=== PATIENT | male | born 1965 | race Caucasian/White ===

== ENCOUNTER 2018-05-14 07:07 | Day surgery (SDC) | payer OTHER ==
[2018-05-13 11:04] VITALS: BMI 35.7
[2018-05-14] MEDS ORDERED: Ketorolac Tromethamine 30 MG/ML VIAL ONE (08:43)
[2018-05-14] MEDS ORDERED: CEFAZOLIN/Water 2 GM/20 ML SYRINGE ONE (08:43)
[2018-05-14 09:01] LABS: #Basophils 0.1 thou/uL (0.0-0.2); #Eosinphils 0.5 thou/uL (0.0-0.7); #Lymphocytes 1.4 thou/uL (1.20-3.40); #Monocytes 0.4 thou/uL (0.11-0.59); #Neutrophils 5.7 thou/uL (1.40-6.50); %Eosinophils 6.7 % (0.0-10.0); %Lymphocytes 17.3 % (21.0-51.0); %Monocytes 5.4 % (0.0-10.0); %Neutrophils 69.6 % (42.0-75.0); Hemoglobin 15.3 g/dL (14.0-18.0); Mean Corpuscular HGB CONC 33.1 g/dL (32.0-36.0); Mean Corpuscular Hemoglobin 28.3 pg (27.0-31.0); Mean Corpuscular Volume 85.3 fL (78.0-98.0); Mean Platelet Volume 7.4 fL (7.4-10.4); Platelet Count 225 thou/uL (130-400); RBC Distribution Width 11.9 % (11.5-14.5); Red Blood Cell (RBC) Count 5.42 mill/uL (4.70-6.10); White Blood Cell (WBC) Count 8.2 thou/uL (4.8-10.8)
[2018-05-14 09:30] LABS: Anion Gap 11 mmol/L (10-20); BUN (Urea Nitrogen) 22 mg/dL (8.4-25.7); Calc. Creatinine Clearance 113 mL/min (70-130); Calcium 9.4 mg/dL (7.8-10.44); Carbon Dioxide 26 mmol/L (22-29); Chloride 108 mmol/L (98-107); Estimated GFR-MDRD 75; Glucose 121 mg/dL (70-105); Potassium 4.5 mmol/L (3.5-5.1); Sodium 140 mmol/L (136-145)
--- NOTE | 2018-05-14 09:56 | RAD ---
FRONTAL RADIOGRAPH CHEST: DATE: 05/14/18. COMPARISON: 01/08/17. HISTORY: Preoperative patient. FINDINGS: Mild diffuse increased linear interstitial densities noted, stable. There is an old clavicle fractur e on the left. There is no pneumothorax, pleural fluid, focal consolidation, or alveolar edema. IMPRESSION: No acute findings. POS: [facility]
[2018-05-14] MEDS ORDERED: Fentanyl 100 MCG/2 ML VIAL ONE ×2 (10:44→12:49)
[2018-05-14] MEDS ORDERED: Bupivacaine/Epinephrine 0.25% 30 ML VIAL ONE (10:50)
[2018-05-14] MEDS ORDERED: Midazolam HCl 2 mg/2 ml Vial ONE (10:56)
[2018-05-14] MEDS ORDERED: Bacitracin Zinc Ointment 30 gm TUBE ONE (11:51)
[2018-05-14] MEDS ORDERED: Promethazine HCl 25 MG/ML VIAL ONE (13:12)
[2018-05-14] MEDS ORDERED: ePHEDrine/0.9% NaCl/PF SYRINGE 50 mg/10 ml ONE (14:25)
[2018-05-14] MEDS ORDERED: Glycopyrrolate 0.2 MG/ML 5 ML SYRINGE ONE (14:25)
[2018-05-14] MEDS ORDERED: PROPOFOL 200 MG/20 ML VIAL ONE (14:25)
[2018-05-14] MEDS ORDERED: Lidocaine 1% PF 5 ML VIAL ONE (14:25)
[2018-05-14] MEDS ORDERED: Ondansetron HCl/PF 4 MG/2 ML Vial ONE (14:25)
--- NOTE | 2018-05-15 08:09 | OP ---
DATE OF OPERATION: 05/14/2018 PREOPERATIVE DIAGNOSIS: A 13 cm protruding soft tissue mass of lateral right chest wall. POSTOPERATIVE DIAGNOSIS: A 13 cm protruding soft tissue mass of lateral right chest wall. OPERATION PERFORMED: Excision of 13 cm right lateral chest wall soft tissue tumor with complex-layer ed closure. SURGEON: Salvatore Mitchell M.D. ANESTHESIA: General endotracheal. INDICATIONS: The patient is a 52-year-old white male. He presented with a large protruding mass fro m his right lateral chest wall. He was taken to the operating room at this time for excision. DESCRIPTION OF OPERATION: Informed consent was obtained, and the patient was taken to the operating room where general endotracheal anesthesia obtained with the patient in supine position. He was then rolled over into a left lateral decubitus position with his right arm flexed forward out of the way. Right lateral chest was prepped with ChloraPrep and draped in sterile fashion. Local anesthetic wa s infiltrated using 0.25% Marcaine with epinephrine. An elliptical incision was created overlying th e mass. Dissection was carried through skin and subcutaneous tissue down to the mass. It was carefu lly dissected free from surrounding tissue in his chest wall. This extended down to the muscular fas tino, but not below it. It was removed intact. Hemostasis was maintained with electrocautery. Speci men was passed off the field intact. The wound was irrigated. All irrigant was aspirated. Meticulous hemostasis was ensured. The wound was closed in multiple layers using running sutures of 3-0 Vicryl to approximate the deep layers and a running suture of 3-0 Prolene to approximate the skin edge. Antibiotic ointment and dry gauze dres sing were placed externally. There were no complications. The patient tolerated the procedure well and was taken to recovery room in stable condition.
--- NOTE | 2018-05-17 20:45 | EKG ---
Test Reason : PREOP Blood Pressure : / mmHG Vent. Rate : 063 BPM Atrial Rate : 063 BPM P-R Int : 136 ms QRS Dur : 086 ms QT Int : 420 ms P-R-T Axes : 015 038 018 degrees QTc Int : 429 ms Normal sinus rhythm Normal ECG When compared with ECG of 08-JAN-2017 14:18, No significant change was found Confirmed by Shawna MCCOY ([id number]) on 05/17/2018 8:45:25 PM Referred By: SUNI Confirmed By:Shawna MCCOY
== END 2018-05-14 13:47 | disposition home or self-care (01) ==
LOC: SDC 07:07
PROVIDERS: ATTEND Specialist
PROC: 0JB60ZZ Excision of Chest Subcutaneous Tissue and Fascia, Open Approach (ICD-10-PCS; principal; 2018-05-14)
DX: D17.1 Benign lipomatous neoplasm of skin and subcutaneous tissue of trunk (principal); I10 Essential (primary) hypertension; M10.9 Gout, unspecified; N40.0 Benign prostatic hyperplasia without lower urinary tract symptoms; F17.290 Nicotine dependence, other tobacco product, uncomplicated; N52.9 Male erectile dysfunction, unspecified; E66.9 Obesity, unspecified; Z68.35 Body mass index [BMI] 35.0-35.9, adult; Z79.899 Other long term (current) drug therapy
CPT/HCPCS: 36416; 71045; 80048; 85025; 88304; 93005; 93010; 96374; J0131; J1885; J2001; J2250; J2405; J2550; J2704; J3010

== ENCOUNTER 2018-12-01 18:08 | Inpatient (IN) | payer OTHER ==
[2018-12-01] MEDS ORDERED: Magnesium 2 GM/50 ML BAG (IN WATER) ONE ×2 (19:11→21:08)
[2018-12-01] MEDS ORDERED: Aspirin Chewable 81 MG TAB ONE (19:11)
[2018-12-01 19:22] LABS: INR-International Normal Ratio 1.1; Prothrombin Time 14.4 SEC (12.0-14.7)
[2018-12-01 19:23] LABS: D-Dimer Test 1.16 *mcg/mL (0.27-0.43)
[2018-12-01] MEDS ORDERED: Acetaminophen 325 MG TAB PO PRN (20:54)
[2018-12-01] MEDS ORDERED: Ondansetron PF 4 MG/2 ML Vial IVP PRN (20:54)
[2018-12-01] MEDS ORDERED: Ondansetron ODT 4 MG TAB PO PRN (20:54)
[2018-12-01] MEDS ORDERED: Sodium Chloride 0.9% 1,000 ML IV SCH (21:00)
[2018-12-01] MEDS ORDERED: Diltiazem 125 MG in Sodium Chloride 0.9% 100 ML IVPB SCH (21:15)
--- NOTE | 2018-12-01 21:33 | CT ---
CT angiogram chest: 12/01/2018 COMPARISON: None HISTORY: Abnormal EKG, chest pain, assess for pulmonary embolism TECHNIQUE: Axial CT imaging obtained at 2.5 mm intervals from the lung apices through the upper abdom en with IV contrast using a CT angiogram protocol. Coronal and oblique sagittal 3-D reformatted imaging obtained. FINDINGS: No lymphadenopathy is noted within the chest. Imaged upper abdomen is unremarkable. Moderate sized bilateral pleural effusions are present. Coronary arterial calcification is noted. No discrete pulmonary arterial filling defect is seen to suggest the presence of acute pulmonary arterial embolism. There is partial consolidation/collapse of bilateral lower lobes abutting the above-described bilater al pleural effusions. There is a pulmonary nodule measuring approximately 8 mm abutting the undersurface of the minor fissu re. There is mild linear increased interstitial density seen peripherally within bilateral upper lobes with associated subpleural cystic change. There is also subtle subpleural cystic change and per ipheral interstitial thickening in the region of the lingula, right middle lobe, and bilateral lower lobes. There is a right upper lobe nodule posteriorly on image 53 measuring 7 mm. No endobronchial lesion is evident. IMPRESSION: No evidence for pulmonary arterial embolism. Bilateral pleural effusions. Interstitial prominence noted. Findings suggest pulmonary edema. Infecti ous pneumonitis in the lung bases cannot be fully excluded. Peripheral interstitial thickening with subpleural emphysematous change. Pulmonary nodules, for which follow-up imaging in [address] advised.
[2018-12-02 05:00] LABS: #Basophils 0.1 thou/uL (0.0-0.2); #Eosinphils 0.5 thou/uL (0.0-0.7); #Lymphocytes 1.4 thou/uL (1.20-3.40); #Monocytes 0.6 thou/uL (0.11-0.59); #Neutrophils 5.9 thou/uL (1.40-6.50); %Basophils 0.8 % (0.0-1.0); %Eosinophils 6.1 % (0.0-10.0); %Lymphocytes 16.7 % (21.0-51.0); %Monocytes 7.3 % (0.0-10.0); %Neutrophils 69.2 % (42.0-75.0); Hemoglobin 13.7 g/dL (14.0-18.0); Mean Corpuscular HGB CONC 32.7 g/dL (32.0-36.0); Mean Corpuscular Hemoglobin 28.2 pg (27.0-31.0); Mean Corpuscular Volume 86.3 fL (78.0-98.0); Mean Platelet Volume 8.2 fL (7.4-10.4); Platelet Count 226 thou/uL (130-400); RBC Distribution Width 12.8 % (11.5-14.5); Red Blood Cell (RBC) Count 4.86 mill/uL (4.70-6.10); White Blood Cell (WBC) Count 8.5 thou/uL (4.8-10.8)
[2018-12-02 05:20] LABS: Anion Gap 11 mmol/L (10-20); BUN (Urea Nitrogen) 22 mg/dL (8.4-25.7); Calc. Creatinine Clearance 0 mL/min (70-130); Calcium 9.2 mg/dL (7.8-10.44); Carbon Dioxide 22 mmol/L (22-29); Chloride 111 mmol/L (98-107); Estimated GFR-MDRD 68; Glucose 103 mg/dL (70-105); Potassium 4.2 mmol/L (3.5-5.1); Sodium 140 mmol/L (136-145)
--- NOTE | 2018-12-02 08:03 | HP ---
PRIMARY CARE DOCTOR: Sheryl Mike DO CODE STATUS: Full code. TIME OF EVALUATION: 7:35 p.m. CHIEF COMPLAINT: Shortness of breath on exertion and cough in the past month. HISTORY OF PRESENT ILLNESS: This is a 53-year-old male patient with past medical history of hypertension, gout, hyperlipidemia, came to the hospital after having shortness of breath on exertion. For the past month, the symptoms have been on and off, with no clear triggers, no alleviating factors. Symptoms have been mild to moderate, limiting his activities of daily living. Due to the symptoms, the patient went to see Dr. Mike for a routine evaluation. He was found to have atrial fibrillation with RVR, sent to the ER, and is being admitted, has been placed on Cardizem drip. Rate is controlled right now, still needing Cardizem 10 mg. REVIEW OF SYSTEMS: CONSTITUTIONAL: No fever, chills, or generalized weakness. RESPIRATORY: No cough, sputum production, shortness of breath. CARDIOVASCULAR: No chest pain or palpitation. GASTROINTESTINAL: No nausea. No vomiting, diarrhea, or abdominal pain. PADDER: No dizziness, headache, or feeling lightheaded. GENITOURINARY: No burning on urination. EXTREMITIES: No leg swelling. All other systems were reviewed and negative except for the findings mentioned above. PAST MEDICAL HISTORY: As mentioned in HPI. SURGICAL HISTORY: Inguinal hernia repair, testicle removal. FAMILY HISTORY:Reviewed and non contributory to current presentation. PSYCH HISTORY: No previous psych history. SOCIAL HISTORY: on Friday, 6 to 12 beers daily. No drugs. No tobacco except for 2 cans of dip per day. KNOWN ALLERGIES: No known drug allergies reported. MEDICATIONS: Allopurinol. PHYSICAL EXAMINATION: VITAL SIGNS: On presentation, blood pressure 147/102 with heart rate 115, respiratory rate was 20, temperature 98.5, pain 0/10, oxygen saturation was 94% on room air. GENERAL APPEARANCE: The patient is alert, oriented, not in acute distress. HEENT: Eyes, normal conjunctivae. Moist oral mucosa. Anicteric. No JVD. RESPIRATORY: Bilateral air entry. No rales. No wheezes. Symmetric expansion. CARDIOVASCULAR: The patient has irregular heartbeat. Mildly tachycardic. No murmurs. No gallop. No edema. ABDOMEN: Soft. Normal bowel sounds. MUSCULOSKELETAL: Baseline range of motion and strength. No tenderness. SKIN: Warm, intact. No pallor. No rash. No redness. Peripheral pulses are present. Capillary refill seems to be intact. NEUROLOGIC: No evidence of any new focal weakness. Baseline speech. Cranial nerves seems to be intact. PSYCH: The patient is in good mood. No anxiety. Optimal judgment. DIAGNOSTIC DATA: EKG showed atrial fibrillation with RVR, ventricular rate 108 , QRS 86, QT corrected 503. CT angio was reviewed. The patient has no evidence of pulmonary arterial embolism, bilateral pleural effusions, interstitial prominence, findings suggest pulmonary edema. Infectious pneumonitis of the lung bases cannot be excluded. Peripheral interstitial thickening of subpleural emphysematous change, pulmonary nodules, for which followup evaluation in [address] is advised. LABORATORY DATA: Labs were reviewed. The patient has white count 11.1, hemoglobin 15.2, MCV 86.9, platelet count 256. Coagulation was normal except for D-dimer was 1.16. Chemistry; sodium 143, potassium 4.0, chloride 109, carbon dioxide 23, anion gap 15, BUN 23, creatinine 1.16, glucose 99. Hemoglobin A1c 5.5 done recently on the . Calcium 9.8, total bilirubin 0.7, AST 26, ALT 46, alkaline phosphatase 87, lactate dehydrogenase 232, CK 190, troponin 0.014. Beta-natriuretic peptide was 474. Serum total protein 7.2. TSH 2.3. ASSESSMENT AND PLAN: The patient will be placed in the hospital with following medical problems: 1. Atrial fibrillation with rapid ventricular response. The patient has been started on Cardizem drip. Cardiology is being consulted, for further recommendations. 2. The patient has probable underlying congestive heart failure seen on the chest x-ray, also elevated beta natriuretic peptide. Place the patient on diuresis. We will adjust as per the patient's clinical response. 3. Uncontrolled hypertension. The patient presented with systolic blood pressure 150 and diastolic 111. The patient reconcile home medications. Also no BP medications reported. He cannot recall the name. We will adjust treatment accordingly. 4. Deep venous thrombosis prophylaxis. 5. The patient has some nodularity reported from the CT angio and may need to follow up as outpatient. Job ID: [id number] [facility]
[2018-12-02] MEDS ORDERED: Enoxaparin Sodium 40 MG/0.4 ML SYRINGE SC SCH (09:00)
[2018-12-02] MEDS ORDERED: Enoxaparin Sodium 40 MG/0.4 ML SYRINGE ONE (09:09)
[2018-12-02] MEDS ORDERED: Furosemide 40 MG/4 ML VIAL ONE (09:09)
[2018-12-02] MEDS ORDERED: cloNIDine 0.1 MG TAB PO PRN (09:47)
[2018-12-02] MEDS ORDERED: hydrALAZINE 20 MG/ML VIAL SLOW IVP PRN (09:47)
[2018-12-02] MEDS: Furosemide 40 MG/4 ML VIAL SLOW IVP SCH (10:28)
[2018-12-02] MEDS ORDERED: Metoprolol Tartrate 50 MG TAB ONE (10:34)
[2018-12-02] MEDS ORDERED: Diltiazem 125 MG/25 ML ONE (11:56)
[2018-12-02] MEDS ORDERED: Enoxaparin Sodium 100 MG/ML SYRINGE SC SCH (12:00)
--- NOTE | 2018-12-02 15:43 | PDOC.PN ---
- Subjective Encounter Start Date: 12/02/18 Encounter Start Time: 15:41 Subjective: feels better. no palpitations or chest pain or SOB - Objective Resuscitation Status - Order Detail: 12/01/18 20:54 Resuscitation Status Routine Resuscitation Status: FULL: Full Resuscitation MAR Reviewed: Yes Result Diagrams: 12/02/18 04:46 12/02/18 04:46 Additional Labs: Laboratory Tests 12/01/18 18:59 B-Natriuretic Peptide 474.5 H Phys Exam - Physical Examination uncomfortable HEENT: PERRLA, moist MMs, sclera anicteric, oral pharynx no lesions Neck: no nodes, no JVD, supple, full ROM Respiratory: no wheezing, no rales, no rhonchi Cardiovascular: RRR, no significant murmur Gastrointestinal: soft, non-tender, no distention, positive bowel sounds Musculoskeletal: no edema, pulses present Neurological: non-focal, normal sensation, moves all 4 limbs Psychiatric: normal affect, A&O x 3 Skin: no rash Dx/Plan (1) Atrial fibrillation with RVR Code(s): I48.91 - UNSPECIFIED ATRIAL FIBRILLATION Status: Acute Comment: rate controlled on CCB drip.Continue. add PO Toprol at home doses.Add BID Lovenox for full anticoagulation.Pt educated in detail ECHO pending.May need cath given significant FH of CAD (2) Pulmonary edema Code(s): J81.1 - CHRONIC PULMONARY EDEMA Status: Acute Qualifiers: Qualified Code(s): J81.0 - Acute pulmonary edema Comment: D/T #1.lasix given.better. monitor.ECHO (3) HTN (hypertension) Code(s): I10 - ESSENTIAL (PRIMARY) HYPERTENSION Status: Chronic Qualifiers: Hypertension type: essential hypertension Qualified Code(s): I10 - Essential (primary) hypertension Comment: stable (4) Gout Code(s): M10.9 - GOUT, UNSPECIFIED Status: Chronic Comment: stable. (5) Tobacco abuse Code(s): Z72.0 - TOBACCO USE Status: Chronic Comment: Dips for almost 35 yrs (6) Tobacco abuse counseling Code(s): Z71.6 - TOBACCO ABUSE COUNSELING Status: Acute - Plan plan discussed w/ family, DVT proph w/SCDs cardiology recs requested.cont as above otherwise. Hd stable -: am labs -: reconcile home meds * . Review of Systems - Review of Systems Constitutional: weakness. negative: fever, chills, sweats, malaise, other ENT: negative: Ear Pain, Ear Discharge, Nose Pain, Nose Discharge, Nose Congestion, Mouth Pain, Mouth Swelling, Throat Pain, Throat Swelling, Other Respiratory: SOB with Excertion. negative: Cough, Dry, Shortness of Breath, Hemoptysis, Pleuritic Pain, Sputum, Wheezing Cardiovascular: negative: chest pain, palpitations, orthopnea, paroxysmal nocturnal dyspnea, edema, light headedness, other Gastrointestinal: negative: Nausea, Vomiting, Abdominal Pain, Diarrhea, Constipation, Melena, Hematochezia, Other Genitourinary: negative: Dysuria, Frequency, Incontinence, Hematuria, Retention , Other Musculoskeletal: negative: Neck Pain, Shoulder Pain, Arm Pain, Back Pain, Hand Pain, Leg Pain, Foot Pain, Other Neurological: negative: Weakness, Numbness, Incoordination, Change in Speech, Confusion, Seizures, Other - Medications/Allergies Allergies/Adverse Reactions: Allergies Allergy/AdvReac Type Severity Reaction Status Date / Time No Known Allergies Allergy Verified 05/13/18 11:04 Medications: Current Medications Acetaminophen (Tylenol) 650 mg PO Q4H PRN PRN Reason: Headache/Fever/Mild Pain (1-3) Clonidine (Catapres) 0.1 mg PO Q4H PRN PRN Reason: SBP>160 Enoxaparin Sodium (Lovenox) 100 mg SC 0900,2100 [facility] Furosemide (Lasix) 40 mg SLOW IVP DAILY [facility] Last Admin: 12/02/18 10:28 Dose: 40 mg Hydralazine HCl (Apresoline) 10 mg SLOW IVP Q4H PRN PRN Reason: SBP>170 Diltiazem HCl 125 mg/ Sodium (Chloride) 125 mls @ 10 mls/hr IVPB INF [facility]; Protocol Metoprolol Succinate (Toprol Xl) 50 mg PO DAILY [facility] Ondansetron HCl (Zofran Odt) 4 mg PO Q6H PRN PRN Reason: Nausea/Vomiting Ondansetron HCl (Zofran) 4 mg IVP Q6H PRN PRN Reason: Nausea/Vomiting Sodium Chloride (Flush - Normal Saline) 10 ml IVF Q12HR [facility] Last Admin: 12/02/18 10:28 Dose: 10 ml Sodium Chloride (Flush - Normal Saline) 10 ml IVF PRN PRN PRN Reason: Saline Flush
--- NOTE | 2018-12-02 16:33 | CON ---
DATE OF CONSULTATION: 12/02/2018 REASON FOR CONSULTATION: New onset atrial fibrillation. HISTORY OF PRESENT ILLNESS: Mr. Sweeney is a very pleasant 53-year-old gentleman, who recently presented to Dr. Sheryl Mike's office with shortness of breath and wheezing. He states he has also had lower extremity edema over the last month. He was found to have an irregular heart rhythm. EKG performed and suggested atrial fibrillation. He has been diuresed and feels much better. PAST MEDICAL HISTORY: Hypertension and gout. ALLERGIES: NONE. MEDICATIONS: Toprol. REVIEW OF SYSTEMS: A 10-point review of systems is reviewed and otherwise negative. PHYSICAL EXAMINATION: GENERAL: Patient is a pleasant male who is in no acute distress. The patient appears their stated age. VITAL SIGNS: Blood pressure 120/70, pulse 80, and respirations 20. NEUROLOGIC: The patient is alert and oriented x3 with no focal neurologic deficits. HEENT: Sclerae without icterus. Mouth has moist mucous membranes with normal pallor. NECK: No JVD. Carotid upstroke brisk. No bruits bilaterally. LUNGS: Clear to auscultation with unlabored respirations. BACK: No scoliosis or kyphosis. CARDIAC: Irregularly irregular. ABDOMEN: Soft, nontender, nondistended. No peritoneal signs present. No hepatosplenomegaly. No abnormal striae. EXTREMITIES: 2+ femoral and 2+ dorsalis pedis pulses. No cyanosis, clubbing, or edema. SKIN: No gross abnormalities. PERTINENT LABORATORY DATA: Hemoglobin 13.7. Creatinine 1.12. BNP of 474. IMPRESSION: New onset atrial fibrillation. RECOMMENDATIONS: Mr. Sweeney does have a history of hypertension. His CHADS score is felt to be 1. His echo was pending and may change his CHADS score. At this point, I would recommend covering with Lovenox. Continue IV Cardizem. We will supplement with p.o. Cardizem at 60 mg q.6 hours. We will then switch to long-acting. Plan is rate control and further outpatient workup if his overall LVEF is normal. If his LVEF is compromised, his CHADS score would be 2 and we would change the direction of his anticoagulation treatment. He also gives a history of snoring and likely has sleep apnea. He will need an outpatient sleep study. Job ID: [id number]
[2018-12-02] MEDS: Enoxaparin Sodium 100 MG/ML SYRINGE SC SCH (20:03)
[2018-12-02 22:49] LABS: Troponin I 0.021 ng/mL (< 0.028)
[2018-12-03 01:28] LABS: Troponin I 0.019 ng/mL (< 0.028)
[2018-12-03] MEDS: Diltiazem 125 MG in Sodium Chloride 0.9% 100 ML IVPB SCH ×2 (01:48→13:13)
--- NOTE | 2018-12-03 07:07 | PDOC.CTH ---
Cardiology Progress Note - Subjective Feels better. He has diuresed. EF on echo difficult to assess. It appearsa mildly depressed vs lower limit of normal - Objective Vital Signs Temp Pulse Resp BP Pulse Ox 12/03/18 03:47 97.6 F 80 18 134/87 92 L 12/03/18 00:06 85 140/87 - Physical Examination General/Neuro: NAD Neck: no JVD present Lungs: CTA, unlabored respirations Heart: PMI normal, other: (irr) Abdomen: NT/ND, soft Extremities: + femoral B - Labs Result Diagrams: 12/02/18 04:46 12/02/18 04:46 Troponin/CKMB Troponin I 0.019 ng/mL (< 0.028) 12/03/18 00:57 - Assessment/Plan New onset afib Change po BB to PO CCB Recommend adding ACT Once rate controlled off IV CCB, recommend outpatient [facility]ON with CV
[2018-12-03] MEDS: Furosemide 40 MG/4 ML VIAL SLOW IVP SCH (09:22)
[2018-12-03] MEDS: Enoxaparin Sodium 100 MG/ML SYRINGE SC SCH (09:23)
[2018-12-03] MEDS ORDERED: Diltiazem 125 MG in Sodium Chloride 0.9% 100 ML IVPB SCH (13:35)
--- NOTE | 2018-12-03 15:07 | PDOC.PN ---
- Subjective Encounter Start Date: 12/03/18 Encounter Start Time: 15:06 Subjective: feels better. no chest pain or palpitations -: still SOB when walks around - Objective Resuscitation Status - Order Detail: 12/01/18 20:54 Resuscitation Status Routine Resuscitation Status: FULL: Full Resuscitation MAR Reviewed: Yes Vital Signs & Weight: Vital Signs (12 hours) Temp Pulse Resp BP Pulse Ox 12/03/18 12:00 98.3 F 82 18 135/77 92 L 12/03/18 08:45 98.2 F 90 18 160/93 H 92 L 12/03/18 08:00 92 L 12/03/18 03:47 97.6 F 80 18 134/87 92 L I&O: 12/02/18 12/03/18 12/04/18 06:59 06:59 06:59 Intake Total 200 Balance 200 Result Diagrams: 12/02/18 04:46 12/02/18 04:46 Phys Exam - Physical Examination Constitutional: NAD HEENT: PERRLA, moist MMs, sclera anicteric, oral pharynx no lesions Neck: no nodes, no JVD, supple, full ROM Respiratory: no wheezing, no rales, no rhonchi, clear to auscultation bilateral Cardiovascular: no significant murmur, irregular Gastrointestinal: soft, non-tender, no distention, positive bowel sounds Musculoskeletal: no edema, pulses present Neurological: non-focal, normal sensation, moves all 4 limbs Psychiatric: normal affect, A&O x 3 Skin: no rash Dx/Plan (1) Atrial fibrillation with RVR Code(s): I48.91 - UNSPECIFIED ATRIAL FIBRILLATION Status: Acute Comment: rate controlled on CCB .changed from drip to PO cardiazem.moitor BID Lovenox for full anticoagulation.Pt educated in detail ECHO pending.May need cath given significant FH of CAD (2) Pulmonary edema Code(s): J81.1 - CHRONIC PULMONARY EDEMA Status: Acute Qualifiers: Qualified Code(s): J81.0 - Acute pulmonary edema Comment: D/T #1.lasix given.better. monitor.ECHO (3) HTN (hypertension) Code(s): I10 - ESSENTIAL (PRIMARY) HYPERTENSION Status: Chronic Qualifiers: Hypertension type: essential hypertension Qualified Code(s): I10 - Essential (primary) hypertension Comment: stable (4) Gout Code(s): M10.9 - GOUT, UNSPECIFIED Status: Chronic Comment: stable. (5) Tobacco abuse Code(s): Z72.0 - TOBACCO USE Status: Chronic Comment: Dips for almost 35 yrs (6) Tobacco abuse counseling Code(s): Z71.6 - TOBACCO ABUSE COUNSELING Status: Acute - Plan DVT proph w/SCDs rate controlled on Po Cardiazem. -: may need OAC-defer to cardiology. -: HD stable * . Review of Systems - Review of Systems Constitutional: negative: fever, chills, sweats, weakness, malaise, other ENT: negative: Ear Pain, Ear Discharge, Nose Pain, Nose Discharge, Nose Congestion, Mouth Pain, Mouth Swelling, Throat Pain, Throat Swelling, Other Respiratory: SOB with Excertion. negative: Cough, Dry, Shortness of Breath, Hemoptysis, Pleuritic Pain, Sputum, Wheezing Cardiovascular: negative: chest pain, palpitations, orthopnea, paroxysmal nocturnal dyspnea, edema, light headedness, other Gastrointestinal: negative: Nausea, Vomiting, Abdominal Pain, Diarrhea, Constipation, Melena, Hematochezia, Other Genitourinary: negative: Dysuria, Frequency, Incontinence, Hematuria, Retention , Other Musculoskeletal: negative: Neck Pain, Shoulder Pain, Arm Pain, Back Pain, Hand Pain, Leg Pain, Foot Pain, Other Neurological: negative: Weakness, Numbness, Incoordination, Change in Speech, Confusion, Seizures, Other - Medications/Allergies Allergies/Adverse Reactions: Allergies Allergy/AdvReac Type Severity Reaction Status Date / Time No Known Allergies Allergy Verified 05/13/18 11:04 Medications: Current Medications Acetaminophen (Tylenol) 650 mg PO Q4H PRN PRN Reason: Headache/Fever/Mild Pain (1-3) Clonidine (Catapres) 0.1 mg PO Q4H PRN PRN Reason: SBP>160 Diltiazem HCl (Cardizem) 60 mg PO ACHS [facility] Last Admin: 12/03/18 13:16 Dose: 60 mg Enoxaparin Sodium (Lovenox) 100 mg SC 0900,2100 [facility] Last Admin: 12/03/18 09:23 Dose: 100 mg Furosemide (Lasix) 40 mg SLOW IVP DAILY [facility] Last Admin: 12/03/18 09:22 Dose: 40 mg Hydralazine HCl (Apresoline) 10 mg SLOW IVP Q4H PRN PRN Reason: SBP>170 Diltiazem HCl 125 mg/ Sodium (Chloride) 125 mls @ 5 mls/hr IVPB INF [facility]; Protocol Ondansetron HCl (Zofran Odt) 4 mg PO Q6H PRN PRN Reason: Nausea/Vomiting Ondansetron HCl (Zofran) 4 mg IVP Q6H PRN PRN Reason: Nausea/Vomiting Sodium Chloride (Flush - Normal Saline) 10 ml IVF Q12HR [facility] Last Admin: 12/03/18 09:24 Dose: 10 ml Sodium Chloride (Flush - Normal Saline) 10 ml IVF PRN PRN PRN Reason: Saline Flush
[2018-12-03] MEDS: Apixaban 5 MG TAB PO SCH (21:37)
[2018-12-03 23:26] VITALS: BMI 33.3
--- NOTE | 2018-12-04 06:11 | PDOC.CTH ---
Cardiology Progress Note - Subjective feels better after diuresis. Would like to go home. - Objective Vital Signs Temp Pulse Resp BP Pulse Ox 12/04/18 04:00 97.8 F 78 20 140/87 92 L 12/03/18 20:00 98.6 F 76 18 160/92 H 92 L 12/03/18 19:40 92 L Weight 206 lb 14.4 oz 12/02/18 12/03/18 12/04/18 06:59 06:59 06:59 Intake Total 200 1060 Output Total 1400 Balance 200 -340 - Physical Examination General/Neuro: alert & oriented x3, NAD Neck: carotid US brisk, no JVD present Lungs: unlabored respirations Heart: other: (irr) Abdomen: no HSM, NT/ND, soft Extremities: + femoral B - Telemetry Telemetry Rhythm: afib - Labs Result Diagrams: 12/04/18 06:26 12/02/18 04:46 Troponin/CKMB Troponin I 0.019 ng/mL (< 0.028) 12/03/18 00:57 - Assessment/Plan New onset afib HTN ?SHER ETOH abuse REC12/04 Change po BB to PO CCB Recommend adding ACT DC IV CCB and increase PO CCB On eliquis If rate and BP controlled, recommend DC home with close OP fu No ETOH per pt for several weeks since he has been feeling SOB; continue to refrain from ETOH (previous 12pk beer per day)
[2018-12-04 06:58] LABS: Hemoglobin 14.6 g/dL (14.0-18.0)
[2018-12-04] MEDS: Furosemide 40 MG/4 ML VIAL SLOW IVP SCH (09:19)
[2018-12-04] MEDS: Apixaban 5 MG TAB PO SCH ×2 (09:19→20:50)
--- NOTE | 2018-12-04 09:49 | PQF ---
GIBRAN MARIEE MALIK MD [id number] CLINICAL DOCUMENTATION IMPROVEMENT CLARIFICATION FORM: ICD-10 Updated PLEASE DO AN ADDENDUM TO THE PROGRESS NOTE WITH ANY DOCUMENTATION UPDATES OR ADDITIONS AND CARRY THROUGH TO DC SUMMARY. THANK YOU. DATE: 12/04/2018 ATTN:DR. Gilda CAMARENA Please exercise your independent, professional judgment in responding to the clarification form. Clinical indicators are provided on the bottom of this form for your review. Please check appropriate box(s): HEART FAILURE: A. TYPE: [ ] Systolic / HFrEF [ x ] Diastolic / HFpEF [ ] Combined Systolic / Diastolic B. ACUITY [ ] Acute [ x ] Acute on Chronic [ ] Chronic [ ] Other diagnosis [ ] Unable to determine In addition, please specify: Present on Admission (POA): [ x ] Yes [ ] No [ ] Unable to determine For continuity of documentation, please document condition throughout progress notes and discharge summary. Thank You. CLINICAL INDICATORS - SIGNS / SYMPTOMS / LABS 12/[address] : BILATERAL PLEURAL EFFUSIONS. INTERSTITIAL PROMINENCE NOTED. FINDINGS SUGGEST PULMONARY EDEMA. INFECTIOUS PNEUMONITIS IN THE LUNG BASES CANNOT BE FULLY EXCLUDED 12/01 BNP 474.5 12/02 H & P (AVANI) ASSESSMENT AND PLAN 2).THE PATIENT HAS PROBABLE UNDERLYING CHF SEEN ON THE CHEST X-RAY, ALSO ELEVATED BNP. PLACE THE PATIENT ON DIURESIS. 12/03 ECHO: TECHNICALLY DIFFICULT STUDY W POOR ENDOCARDIAL DEFINITION; LIMITED VIEWS. EF APPEARS MILDY DEPRESSED TO LOWER LIMITS OF NORMAL. MILD MITRAL REGURGITATION IS PRESENT, MILD TRICUSPID REGURGITATION RISK: ACUTE PULMONARY EDEMA NEW ONSET A-FIB W RVR ALCOHOL ABUSE TREATMENTS CARDIOLOGY CONSULT LASIX IV (11/12- PRESENT) THANK YOU! JOSE MANUEL (This form is maintained as a part of the permanent medical record) 2014 [employer] All Rights Reserved [email or web address] [phone] DANELLE
[2018-12-04 11:45] LABS: ALT (SGPT) 42 U/L (8-55); AST (SGOT) 23 U/L (5-34); Albumin 3.8 g/dL (3.5-5.0); Alkaline Phosphatase 76 U/L (40-150); Anion Gap 13 mmol/L (10-20); BUN (Urea Nitrogen) 18 mg/dL (8.4-25.7); Calc. Creatinine Clearance 104 mL/min (70-130); Calcium 9.4 mg/dL (7.8-10.44); Carbon Dioxide 24 mmol/L (22-29); Chloride 107 mmol/L (98-107); Estimated GFR-MDRD 71; Globulin 2.8 g/dL (2.4-3.5); Glucose 120 mg/dL (70-105); Magnesium 1.8 mg/dL (1.6-2.6); Potassium 3.8 mmol/L (3.5-5.1); Protein, Total 6.6 g/dL (6.0-8.3); Sodium 140 mmol/L (136-145)
[2018-12-04] MEDS ORDERED: Lorazepam 1 MG TAB PO PRN (17:28)
--- NOTE | 2018-12-04 17:46 | PRG ---
DATE OF SERVICE: 12/04/2018 SUBJECTIVE: The patient denies any new complaints. Remains on remains on Cardizem drip. Denies any chest pain. No fever or chills reported. REVIEW OF SYSTEMS: The patient denies any nausea, vomiting, or diaphoresis. All other review of systems were reviewed and were found negative. CURRENT MEDICATIONS: Reviewed. OBJECTIVE: VITAL SIGNS: Temperature 99.3 with pulse rate of 93, respirations of 18, blood pressure of 146/71 with O2 saturation 93% on room air, weight of 206 pounds. GENERAL: A 53-year-old male in no apparent distress, on Cardizem drip. LUNGS: Clear to auscultation bilaterally. HEART: S1, S2 present. Irregularly irregular. No rubs or gallops. ABDOMEN: Soft, obese. Bowel sounds present. EXTREMITIES: No edema or calf tenderness. NEUROLOGIC: Grossly nonfocal. LABORATORY DATA: Significant labs, sodium 140, potassium 3.8, BUN 18, creatinine 1.08. TSH was normal. Troponins negative. IMPRESSION: 1. New onset atrial fibrillation with rapid ventricular response/Acute diastolic HF - ACC stage C (present on admission) 2. Chronic alcohol abuse. 3. Hypertension. 4. Obesity with a body mass index of 33.4. 5. Benign prostatic hypertrophy. 6. Gout. 7. Suspected obstructive sleep apnea. PLAN: Cardizem drip will be discontinued. We will continue oral Cardizem at 90 mg a.c. at bedtime. Continue Eliquis. He understands the risk associated with Eliquis. We will resume allopurinol and Flomax. We will start him on thiamine, folic acid, multivitamin. We will initiate alcohol withdrawal protocol. Lifestyle modification was emphasized. He was advised to get a sleep study as outpatient. DISPOSITION: Probably in 24 hours, if okay with Cardiology. Job ID: [id number] [facility]
[2018-12-04] MEDS ORDERED: Folic Acid 1 MG TAB PO SCH (18:00)
[2018-12-04] MEDS ORDERED: Lorazepam 0.5 MG TAB PO SCH (18:00)
[2018-12-04] MEDS ORDERED: Thiamine 100 MG TAB PO SCH (18:00)
[2018-12-04] MEDS: Tamsulosin HCl 0.4 MG CAP PO SCH (20:50)
[2018-12-05] MEDS ORDERED: Digoxin 0.5 MG/2 ML AMP SLOW IVP SCH (09:15)
[2018-12-05] MEDS: Apixaban 5 MG TAB PO SCH ×2 (09:35→21:04)
[2018-12-05] MEDS: Furosemide 40 MG/4 ML VIAL SLOW IVP SCH (09:35)
[2018-12-05] MEDS: Folic Acid 1 MG TAB PO SCH (09:35)
[2018-12-05] MEDS: Allopurinol 300 MG TAB PO SCH (09:35)
[2018-12-05] MEDS: Thiamine 100 MG TAB PO SCH (09:35)
[2018-12-05] MEDS: Multivit, Therapeutic 1 TAB PO SCH (09:35)
[2018-12-05] MEDS: Digoxin 0.5 MG/2 ML AMP SLOW IVP SCH ×2 (11:21→13:17)
--- NOTE | 2018-12-05 16:14 | PDOC.PN ---
- Subjective Encounter Start Date: 12/05/18 Encounter Start Time: 10:00 Patient seen and examined for Afib with RVR. No new complaints. No overnight events - Objective Resuscitation Status - Order Detail: 12/01/18 20:54 Resuscitation Status Routine Resuscitation Status: FULL: Full Resuscitation MAR Reviewed: Yes Vital Signs & Weight: Vital Signs (12 hours) Temp Pulse Resp BP Pulse Ox 12/05/18 15:23 98 F 100 16 176/90 H 95 12/05/18 13:17 93 12/05/18 11:23 98.4 F 101 H 16 153/88 H 94 L 12/05/18 11:21 107 H 12/05/18 09:34 119 H 12/05/18 07:49 98.3 F 110 H 16 135/88 94 L Weight Weight 206 lb 14.4 oz I&O: 12/04/18 12/05/18 12/06/18 06:59 06:59 06:59 Intake Total 1320 1845 Output Total 2000 200 Balance -680 1645 Result Diagrams: 12/04/18 06:26 12/04/18 11:03 EKG Reviewed by me: Yes (Tele Afib) Phys Exam - Physical Examination Constitutional: NAD Respiratory: no wheezing, no rhonchi Cardiovascular: no rub, irregular Gastrointestinal: soft, non-tender, positive bowel sounds Musculoskeletal: no edema Neurological: moves all 4 limbs Dx/Plan - Plan DVT proph w/SCDs IMPRESSION: 1. New onset atrial fibrillation with rapid ventricular response/Acute diastolic HF - ACC stage C (present on admission) 2. Chronic alcohol abuse. 3. Hypertension. 4. Obesity with a body mass index of 33.4. 5. Benign prostatic hypertrophy. 6. Gout. 7. Suspected obstructive sleep apnea. PLAN: Cont Digoxin loading Cont Diltiazem 360 mg HS Cont Thiamine/Folic acid Sleep study as outpt DC in 24-48 hr if stable Change Lasix to PO Review of Systems - Review of Systems Respiratory: negative: Cough, Dry, Shortness of Breath, Hemoptysis, SOB with Excertion, Pleuritic Pain, Sputum, Wheezing Cardiovascular: negative: chest pain, palpitations, orthopnea, paroxysmal nocturnal dyspnea, edema, light headedness, other Gastrointestinal: negative: Nausea, Vomiting, Abdominal Pain, Diarrhea, Constipation, Melena, Hematochezia, Other - Medications/Allergies Allergies/Adverse Reactions: Allergies Allergy/AdvReac Type Severity Reaction Status Date / Time No Known Allergies Allergy Verified 05/13/18 11:04 Medications: Current Medications Acetaminophen (Tylenol) 650 mg PO Q4H PRN PRN Reason: Headache/Fever/Mild Pain (1-3) Allopurinol (Zyloprim) 300 mg PO DAILY [facility] Last Admin: 12/05/18 09:35 Dose: 300 mg Apixaban (Eliquis) 5 mg PO BID [facility] Last Admin: 12/05/18 09:35 Dose: 5 mg Clonidine (Catapres) 0.1 mg PO Q4H PRN PRN Reason: SBP>160 Last Admin: 12/05/18 15:31 Dose: 0.1 mg Diltiazem HCl (Cardizem Cd) 360 mg PO HS [facility] Last Admin: 12/04/18 20:50 Dose: 360 mg Folic Acid (Folvite) 1 mg PO DAILY [facility] Last Admin: 12/05/18 09:35 Dose: 1 mg Furosemide (Lasix) 40 mg SLOW IVP DAILY [facility] Last Admin: 12/05/18 09:35 Dose: 40 mg Hydralazine HCl (Apresoline) 10 mg SLOW IVP Q4H PRN PRN Reason: SBP>170 Lorazepam (Ativan) 1 mg PO Q4H PRN PRN Reason: ASE >=9 Multivitamins (Theragran) 1 tab PO DAILY [facility] Last Admin: 12/05/18 09:35 Dose: 1 tab Ondansetron HCl (Zofran Odt) 4 mg PO Q6H PRN PRN Reason: Nausea/Vomiting Ondansetron HCl (Zofran) 4 mg IVP Q6H PRN PRN Reason: Nausea/Vomiting Sodium Chloride (Flush - Normal Saline) 10 ml IVF Q12HR [facility] Last Admin: 12/05/18 09:34 Dose: 10 ml Sodium Chloride (Flush - Normal Saline) 10 ml IVF PRN PRN PRN Reason: Saline Flush Tamsulosin HCl (Flomax) 0.4 mg PO HS [facility] Last Admin: 12/04/18 20:50 Dose: 0.4 mg Thiamine HCl (Thiamine) 100 mg PO DAILY [facility] Last Admin: 12/05/18 09:35 Dose: 100 mg
[2018-12-05] MEDS: Tamsulosin HCl 0.4 MG CAP PO SCH (21:04)
[2018-12-06 07:14] LABS: Anion Gap 14 mmol/L (10-20); BUN (Urea Nitrogen) 17 mg/dL (8.4-25.7); Calc. Creatinine Clearance 101 mL/min (70-130); Calcium 9.7 mg/dL (7.8-10.44); Carbon Dioxide 23 mmol/L (22-29); Chloride 105 mmol/L (98-107); Estimated GFR-MDRD 73; Glucose 108 mg/dL (70-105); Potassium 4.3 mmol/L (3.5-5.1); Sodium 138 mmol/L (136-145)
[2018-12-06] MEDS ORDERED: Furosemide 40 MG TAB PO SCH (07:30)
[2018-12-06] MEDS: Apixaban 5 MG TAB PO SCH (08:52)
[2018-12-06] MEDS: Multivit, Therapeutic 1 TAB PO SCH (08:52)
[2018-12-06] MEDS: Folic Acid 1 MG TAB PO SCH (08:52)
[2018-12-06] MEDS: Thiamine 100 MG TAB PO SCH (08:52)
[2018-12-06] MEDS: Allopurinol 300 MG TAB PO SCH (08:52)
[2018-12-06] MEDS ORDERED: Digoxin 0.25 MG TAB PO SCH (09:00)
[2018-12-06 11:23] VITALS: BP 138/79; TEMP 98.2
--- NOTE | 2018-12-06 14:38 | DIS ---
DATE OF ADMISSION: 12/01/2018 DATE OF DISCHARGE: 12/06/2018 DISCHARGE DISPOSITION: Home. FOLLOWUP: 1. Follow up with primary care physician, Dr. Sheryl Mike, in 1 week. 2. Follow up with Dr. Yang in 2 weeks. ALLERGIES: NO KNOWN DRUG ALLERGIES. THIS NOT LIMITED TO LIFE THREATENING COMPLICATIONS INCLUDING FROM ANTICOAGULATION DISCUSSED WITH THE PATIENT. HE STATED UNDERSTANDING. THE PATIENT WAS SEEN AND EXAMINED ON THE DAY OF DISCHARGE. DENIES ANY NEW COMPLAINTS. DISCHARGE MEDICATIONS: 1. Eliquis 5 mg b.i.d. 2. Digoxin 0.25 mg daily. 3. Cardizem CD 360 mg at bedtime. 4. Lasix 40 mg daily as needed. 5. Potassium 20 mg daily as needed with Lasix. 6. Flomax 0.4 mg daily. BRIEF HOSPITAL COURSE: The patient is a 53-year-old male with hypertension and hyperlipidemia, presented to the hospital with shortness of breath. His workup was consistent with atrial fibrillation with rapid ventricular response along with congestive heart failure exacerbation. He was started on Cardizem drip along with anticoagulation and IV diuresis. His weight on the day of discharge is 197 pounds from 206 pounds. Symptomatically, he feels much better. He has been started on oral Cardizem along with digoxin. He will follow up with Dr. Yang as outpatient for cardioversion probably after 4 weeks. Echocardiogram showed ejection fraction probably in the lower limits of normal. It also showed mild mitral regurgitation and mild tricuspid regurgitation. His CT angiogram of the chest on admission was negative for pulmonary embolism. It showed bilateral pleural effusion and findings suggestive of pulmonary edema. He was extensively counseled on low-potassium diet. His vital signs on the day of discharge are temperature 98.2, pulse rate of 87, respirations 18, and blood pressure of 138/79 with O2 saturation 95% on room air. Plan of care was discussed with the patient in detail, he stated understanding. TIME SPENT: Total time coordinating the discharge of this patient was 35 minutes. Lifestyle modification was emphasized. FINAL DIAGNOSES: 1. New onset atrial fibrillation with rapid ventricular response. 2. Acute diastolic heart failure exacerbation secondary to #1. 3. Chronic alcohol abuse. The patient was encouraged to quit drinking. 4. Hypertension. 5. Obesity with a BMI of 33.4. 6. Benign prostatic hypertrophy. 7. Gastroesophageal reflux disease. 8. Suspected sleep apnea. A sleep study as outpatient is recommended. 9. Chronic kidney disease, stage 2. Plan of care was discussed with the patient in detail, he stated understanding. Job ID: [id number]
== END 2018-12-06 11:35 | disposition home or self-care (01) | DRG 291 ==
LOC: ERS 18:08 → ERHOLD 21:01 → 2NO 12-02 19:05
PROVIDERS: ADMIT Internal Medicine; ATTEND Internal Medicine
DX: I13.0 Hypertensive heart and chronic kidney disease with heart failure and stage 1 through stage 4 chronic kidney disease, or unspecified chronic kidney disease (principal); I50.33 Acute on chronic diastolic (congestive) heart failure; I48.91 Unspecified atrial fibrillation; E78.5 Hyperlipidemia, unspecified; M10.9 Gout, unspecified; N40.0 Benign prostatic hyperplasia without lower urinary tract symptoms; G47.33 Obstructive sleep apnea (adult) (pediatric); I08.1 Rheumatic disorders of both mitral and tricuspid valves; K21.9 Gastro-esophageal reflux disease without esophagitis; N18.2 Chronic kidney disease, stage 2 (mild); F10.10 Alcohol abuse, uncomplicated; E66.9 Obesity, unspecified; F17.220 Nicotine dependence, chewing tobacco, uncomplicated; Z68.33 Body mass index [BMI] 33.0-33.9, adult; Z79.899 Other long term (current) drug therapy; Z90.79 Acquired absence of other genital organ(s)
CPT/HCPCS: 36415; 71275; 80048; 80053; 83735; 83880; 84443; 84484; 85014; 85018; 85025; 85379; 85610; 85730; 93005; 93306; 96365; 96366; J1160; J1650; J1940; J3475; J3490

== ENCOUNTER 2019-02-16 08:57 | Outpatient (CLI) | payer OTHER ==
[2019-02-16 10:25] LABS: Bilirubin Negative (Negative); Blood, Urine Trace (Negative); Glucose, Urine (Dipstick) Negative (Negative); Leukocyte Negative (Negative); Nitrite Negative (Negative); Protein, Urine (Dipstick) 100 mg/dL (Neg-Trace); Urobilinogen 0.2 mg/dL (Less than 2)
[2019-02-16] MEDS ORDERED: Iopamidol 370 76% 100 ML VIAL ONE (10:34)
[2019-02-16 10:39] LABS: Clarity Clear (Clear)
[2019-02-16 10:47] LABS: Anion Gap 15 mmol/L (10-20); BUN (Urea Nitrogen) 32 mg/dL (8.4-25.7); Bacteria/HPF None Seen HPF (None Seen); Calc. Creatinine Clearance 0 mL/min (70-130); Calcium 9.3 mg/dL (7.8-10.44); Carbon Dioxide 26 mmol/L (22-29); Chloride 102 mmol/L (98-107); Estimated GFR-MDRD 38; Glucose 152 mg/dL (70-105); Potassium 4.2 mmol/L (3.5-5.1); RBC/HPF None Seen HPF (0-3); Sodium 139 mmol/L (136-145); Squamous Epithelial None Seen HPF (0-3)
--- NOTE | 2019-02-16 11:00 | CT ---
CT ABDOMEN AND PELVIS WITH AND WITHOUT IV CONTRAST: 02/16/2019 PROVIDED CLINICAL HISTORY: Hematuria and incomplete bladder emptying. COMPARISON: CT examination performed on 12/17/2016. FINDINGS: The visualized lung bases are free of significant opacity. The liver, spleen, pancreas, and adrenal glands appear unremarkable. There is a stable cystic structure with dependent calcium present, involving the right kidney. There is mild bilateral hydronephrosis and bilateral hydroureter. There is marked distention of the urina ry bladder, likely the responsible etiology for the hydronephrosis and hydroureter. There is no evid ence for urinary tract calculi or renal mass. The prostate gland appears mildly prominent and hetero geneous. The delayed images demonstrate only minimal contrast excretion within the renal collecting systems, s uch that evaluation of the ureters and urinary bladder is somewhat limited, though these appear gross ly normal, other than the bladder distention. There is no bowel dilatation, inflammatory fat stranding, free fluid, or lymph node enlargement appar ent. Occasional vascular calcifications are seen. The osseous structures demonstrate no concerning lytic or blastic lesions. Degenerative changes are seen involving the spine. IMPRESSION: Marked distention of the urinary bladder, with presumably attendant mild bilateral hydronephrosis and hydroureter. POS: OFF
== END 2019-02-16 08:58 | disposition home or self-care (01) ==
LOC: CT 08:57
PROVIDERS: ATTEND Urology
DX: R31.0 Gross hematuria (principal); R39.14 Feeling of incomplete bladder emptying; R97.20 Elevated prostate specific antigen [PSA]; N32.89 Other specified disorders of bladder
CPT/HCPCS: 74178; 80048; 81001; 87086; G0103; Q9967

== ENCOUNTER 2019-02-19 09:43 | Inpatient (IN) | payer OTHER ==
[2019-02-19] MEDS ORDERED: Bisacodyl 5 MG TAB PO PRN ×2 (10:33)
[2019-02-19] MEDS ORDERED: Diabetic Tussin 200 MG/10 ML UDCUP PO PRN (10:33)
[2019-02-19] MEDS ORDERED: Senokot S 8.6-50 MG TAB PO PRN ×2 (10:33)
[2019-02-19] MEDS ORDERED: Benzonatate 100 MG CAP PO PRN (10:33)
[2019-02-19] MEDS ORDERED: Acetaminophen 325 MG TAB PO PRN (10:33)
[2019-02-19] MEDS ORDERED: Artificial Tears 18 DROP/0.9 ML EA EYE PRN (10:33)
[2019-02-19] MEDS ORDERED: Ondansetron PF 4 MG/2 ML Vial IVP PRN ×2 (10:33)
[2019-02-19] MEDS ORDERED: Nitroglycerin 0.4 MG TAB (25 Tab Bottle) SL PRN (10:33)
[2019-02-19] MEDS ORDERED: cloNIDine 0.1 MG TAB PO PRN (10:33)
[2019-02-19] MEDS: Sodium Chloride 0.9% 1,000 ML IV SCH (11:52)
[2019-02-19 12:03] LABS: #Basophils 0.1 thou/uL (0.0-0.2); #Eosinphils 0.9 thou/uL (0.0-0.7); #Lymphocytes 1.6 thou/uL (1.20-3.40); #Monocytes 0.9 thou/uL (0.11-0.59); #Neutrophils 13.2 thou/uL (1.40-6.50); %Basophils 0.4 % (0.0-1.0); %Eosinophils 5.3 % (0.0-10.0); %Lymphocytes 9.8 % (21.0-51.0); %Monocytes 5.3 % (0.0-10.0); %Neutrophils 79.2 % (42.0-75.0); Mean Corpuscular Hemoglobin 26.6 pg (27.0-31.0); Mean Platelet Volume 8.8 fL (7.4-10.4); Platelet Count 201 thou/uL (130-400); Red Blood Cell (RBC) Count 5.27 mill/uL (4.70-6.10); White Blood Cell (WBC) Count 16.7 thou/uL (4.8-10.8)
[2019-02-19 12:44] VITALS: BMI 34.0
--- NOTE | 2019-02-19 14:51 | HP ---
PRIMARY CARE PHYSICIAN: Sheryl Mike DO. REQUESTING PHYSICIAN: Caitlyn Patel DO. The patient is being admitted directly from Dr. Patel' office for renal failure. CHIEF COMPLAINT: Abnormal labs. HISTORY OF PRESENT ILLNESS: Mr. Sweeney is a pleasant 53-year-old male with past medical history of atrial fibrillation, on chronic anticoagulation with Eliquis as well as history of chronic diastolic congestive heart failure, diagnosed in November of this year, as well as history of benign prostatic hyperplasia leading to urinary retention, who is under care of Dr. Patel, came in as a direct admit from her office. History is mainly obtained by the patient himself and the case has been discussed with Dr. Patel over the phone. According to Mr. Sweeney, his Eliquis was stopped about 3 or 4 days ago. He was seen in the clinic at urology offices and a Rolle catheter was placed in. It seems like he is to undergo some sort of prostate surgery for BPH, likely TURP. However, today in the office, it was found out that not only he is having hematuria despite being off Eliquis for the last few days, but he also has developed acute renal insufficiency. His creatinine today was found to be 2.09, which was 1.70 two days ago and 1.87 three days ago. Because of this reason, he is now being admitted for further workup. Maybe he will also need cardiology clearance if the surgery is planned inpatient. He also reports having discomfort urination with burning without any abdominal pain. He denies any fever, chills, nausea, or vomiting. He denies any chest pain or shortness of breath. No lightheadedness, orthopnea, PND, or swelling. He is otherwise hemodynamically stable upon presentation with a blood pressure 125/83, heart rate of 80. He is also taking Lasix for his history of heart failure. Denies any loss of appetite or loss of weight. He had a CT scan of his abdomen and pelvis done three days ago in the outpatient setting, which was reviewed by myself. It did show distention of the urinary bladder with mild bilateral hydronephrosis and hydroureter possibly. PAST MEDICAL HISTORY: 1. Atrial fibrillation, on chronic anticoagulation, currently on hold. 2. Chronic diastolic congestive heart failure, diagnosed in November 2018. 3. Urinary retention due to BPH, status post Rolle catheter placement a few days ago. 4. History of chronic alcohol abuse. The patient is abstinent for the last few months. 5. Hypertension. 6. Obesity with a BMI over 30. 7. BPH. 8. GERD. 9. Suspected sleep apnea. PAST SURGICAL HISTORY: 1. Inguinal hernia repair. 2. Testicular removal. FAMILY HISTORY: He denies any family history of any chronic kidney disease, heart disease, or heart failure. SOCIAL HISTORY: He used to drink up to 12 pack of beer daily, but has been abstinent for the last few months. He denies any drug or alcohol abuse. He dips tobacco. ALLERGIES: NO KNOWN MEDICATION ALLERGIES. CURRENT MEDICATIONS: As follows; 1. Tamsulosin 0.4 mg daily. 2. Potassium chloride 20 mEq daily. 3. Multivitamin daily. 4. Lasix 40 mg daily as needed. 5. Diltiazem 360 mg daily. 6. Digoxin 0.25 mg daily. 7. He is also started on ciprofloxacin twice a day only yesterday by Dr. Patel. He does not remember the dose. REVIEW OF SYSTEMS: A 14-point review of system is done. It is negative except for those mentioned in the history and physical. LABORATORY DATA: His CBC was repeated today and shows WBCs of 16.7, it was 12.3 on 12/15/2018. His serum chemistries from today show sodium of 136, potassium 4.2, chloride 100, bicarb 26, BUN 30, creatinine 2.09, blood sugar 200. His last hemoglobin A1c was checked in November 2018 and was 5.5. PHYSICAL EXAMINATION: VITAL SIGNS: Upon presentation to the floor, temperature 98.6, pulse of 80, respirations 14, saturating 98% on room air, and blood pressure 125/83. GENERAL: In no acute distress. He does have some stammer and appear somewhat tremulous. Otherwise awake, alert, and oriented x3. HEENT: Mucous membrane is slightly dry. No oropharyngeal exudate or erythema. Head is normocephalic and atraumatic. Pupils are equal and reactive to light and accommodation. Extraocular movement intact. NECK: Supple without any lymphadenopathy, JVD, or bruit. CHEST: Clear to auscultation without any wheezing, rales, or rhonchi. HEART: Rate and rhythm are regular without any murmurs, rubs, or gallops. ABDOMEN: Obese, soft, nontender, and nondistended. Positive bowel sounds. EXTREMITIES: Trace pitting edema bilaterally. NEUROLOGIC: Nonfocal. SKIN: Free of any rashes or bruises. GENITOURINARY: Reveals presence of a Rolle catheter, which has some brownish dark urine in it, may be tinged with blood. IMPRESSION AND PLAN: 1. Acute renal insufficiency. Most likely multifactorial. The patient has been on diuretics along with presence of a Rolle catheter, possibly urinary tract infection as evidenced by leukocytosis. We will repeat the UA and continue the urine Rolle for now and continue the ciprofloxacin as well. We will gently hydrate him to avoid fluid overload and request consultation with Nephrology as well. We will do serial monitoring of his renal function and hold Lasix for now. His Eliquis has already been on hold. 2. Leukocytosis, suspect reactive, but urinary tract infection cannot be ruled out. Continue ciprofloxacin and recheck urine with culture. 3. Atrial fibrillation. The patient will be continued on his Cardizem. We will check digoxin level in the face of renal failure and if the levels are not in the toxic range, we will restart the digoxin as well. Eliquis has been put on hold for upcoming urological procedure and we will continue to hold it as he exhibits some hematuria. 4. History of chronic diastolic congestive heart failure. The patient currently appears hypovolemic. He will be fluid resuscitated and we will hold the Lasix for now. Monitor closely for the fluid overload symptoms. 5. Benign prostatic hyperplasia. Resume Flomax and request consultation with his urologist, Dr. Patel, while he is in-house. Continue the Rolle catheter for now and check the UA as above. 6. Deep venous thrombosis and gastrointestinal prophylaxis in the form of SCDs and avoid any pharmacological DVT prophylaxis. DISPOSITION: Mr. Sweeney is currently being admitted to medical floor for acute renal insufficiency. Estimated length of stay at this time is at least 2 to 3 midnights. Further management will depend upon his clinical course and recommendations from Nephrology and Urology teams. Job ID: [id number]
[2019-02-19 15:13] LABS: Protein, Urine (Dipstick) > or equal to 300 mg/dL (Neg-Trace)
[2019-02-19 15:15] LABS: Bilirubin Unable to Interpret (Negative); Blood, Urine Large (Negative); Clarity Opaque (Clear); Glucose, Urine (Dipstick) Unable to Interpret mg/dL (Negative); Nitrite Unable to Interpret (Negative); Urobilinogen UNABLE TO INTERPRET mg/dL (Less than 2)
[2019-02-19 15:23] LABS: Leukocyte Large Leu/uL (Negative)
[2019-02-19 15:23] LABS: Digoxin 1.15 ng/mL (0.8-2.0)
[2019-02-19 15:24] LABS: RBC/HPF Greater than 50 HPF (0-3)
[2019-02-19 15:27] LABS: Bacteria/HPF None Seen HPF (None Seen); Mucous/LPF 2+ LPF (<2+); WBC/HPF 21-50 HPF (0-3)
[2019-02-19 15:28] LABS: Urine Culture Reflex No No
--- NOTE | 2019-02-19 16:13 | CON ---
DATE OF CONSULTATION: 02/19/2019 PRIMARY CARE PHYSICIAN: Sheryl Mike DO REASON FOR CONSULT: 1. Persistent renal insufficiency, history of acute urinary retention. 2. Hematuria. HISTORY OF PRESENT ILLNESS: Mr. Sweeney is a pleasant 53-year-old male, who initially presented back in December of 2016 due to right groin mass with history of right undescended testis. He previously underwent right orchidopexy, inguinal hernia repair as a child, his physical exam demonstrated right undescended testis at the level of the external ring, underwent right radical orchiectomy, prostate biopsy, ultrasound, flexible cystoscopy due to concomitant obstructive urinary symptoms, and elevated PSA. Orchiectomy specimen is negative for malignancy, cystoscopy demonstrated high median bar with a component of intravesical median lobe. His right UO was identified; however, the left UO was difficult to identify due to multiple cellule formation within the bladder. No bladder mass or stones were appreciated with prostate volume of 69 g. Biopsy negative for malignancy, he was advised to follow up with me, and advised to continue Flomax, Avodart initiated January 2017. He subsequently no showed, as I informed the patient regarding the importance of followup regarding his voiding status for possible surgical intervention, if refractory obstructive urinary symptoms. He is followed by Dr. Yang, had an elective stress test scheduled due to history of AFib, recently diagnosed. He has been on Eliquis. Subsequently, he called my office due to intermittent pink tinged hematuria. Relates history of incontinence, decreased urinary caliber. I worked the patient into my office due to presenting complaints with CT. A CT demonstrated bilateral hydronephrosis. Due to significantly distended bladder, he was advised to present to my office for emergent assessment. Upon placing the Rolle catheter on February 16, total of 2200 mL of postvoid residual was obtained. I informed the patient that we need to monitor his electrolytes for postobstructive diuresis, and expected hematuria component with decompression of a significantly distended bladder, especially with chronic anticoagulation therapy. He adamantly declined to be admitted, as such I informed him that he needs close followup with me. He has seen me multiple times this week Friday, and today for close followup as he declined medical admission for renal insufficiency. On today's visit, he still has persistent hematuria, I did flush his catheter demonstrating no clots; however, I advised the patient to be admitted for medical assessment, as there is worsening of his kidney function despite indwelling Rolle catheter. I did discontinue his allopurinol due to acute renal insufficiency, and also informed that we should consider holding his Lasix as it maybe contributing to renal insufficiency as his bladder is decompressed. Due to multiple medical comorbidities, medical issues concomitantly likely contributing to renal insufficiency, advised regarding medical admit. I did conference with Dr. aMrs, who accepted the patient to be medically admitted. The patient is currently resting comfortably. His urine output has some clearing with IV fluids, now transparent red, clearer than it was on today's visit. He is resting comfortably. I did provide him with empiric antibiotic therapy, ciprofloxacin as he presented Friday with a fever of 100.3, currently he is afebrile. I did provide empiric ciprofloxacin. Final urine culture is negative. PAST MEDICAL HISTORY: Hypertension, gout, BPH, history of right undescended testes, history of elevated PSA, impotence, complex renal cyst; history of proteinuria, which I referred previously to Dr. Venegas; history of chest wall mass; history of AFib, followed by Dr. Yang. PAST SURGICAL HISTORY: 1. Right undescended testis, orchidopexy as an . Right inguinal hernia repair in , cystoscopy, right radical orchiectomy, transrectal ultrasound biopsy in January 2017, volume 69 g. No malignancy. 2. 13 cm right chest wall soft tissue mass excised by Dr. Mitchell, May 2018. FAMILY HISTORY: Positive for coronary artery disease. SOCIAL HISTORY: He is a nonsmoker. Occasional snuffs. Social drinker. Denies sexual activity. He is . 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 ALLERGIES: NO KNOWN DRUG ALLERGIES. MEDICATIONS: Home medications include, 1. Amlodipine. 2. Losartan. 3. Metoprolol. 4. Gabapentin. 5. Potassium chloride. 6. Diltiazem. 7. Digoxin. 8. Lasix 40 mg one tablet a day, half a tablet in the afternoon. 9. Flomax 0.4 mg, which I recently increased to b.i.d. I did initiate previously on allopurinol and Eliquis which were discontinued with approval of Cardiology. Avodart was discontinued by the patient, unknown date, likely sometime in 2017 or 2018, as I have not seen the patient for about 2 years. Current medications include, 1. Tylenol. 2. Tessalon. 3. Dulcolax. 4. Clonidine. 5. Cardizem. 6. Pepcid. 7. Robitussin. 8. Nitrostat. 9. Zofran. 10. Flomax. I did increase his Flomax to b.i.d. and started on Avodart as well in-house. PHYSICAL EXAMINATION: VITAL SIGNS: Stable. Afebrile, 98, 80, 14, 98, 125/83. GENERAL: The patient is in no acute distress. HEENT: Unremarkable. HEART: reg rate, irregular rhythm. LUNGS: Clear to auscultation. ABDOMEN: Morbidly obese, protuberant. Bowel sounds present. No rigidity. No rebound. : Rolle catheter is adequately secured, it is draining uneventfully. Clearing of the hematuria component on tubing is noted; however, he has persistent tamayo red hematuria. EXTREMITIES: Minimal lower extremity edema. I did recently perform a ARANZA in my office, therefore it was deferred. PSYCHIATRIC: Appears to be appropriate and intact. NEUROLOGIC: No gross focal deficits. PERTINENT LABS AND IMAGING: CT February 16, 2019, marked distention of the urinary bladder resulting in mild bilateral hydroureteronephrosis. No evidence of renal calculi or ureteral calculi. Stable right renal cyst with thin linear calcification. No significant enhancement. PSA prior to prostate biopsy is 5.2. Renal function baseline creatinine 0.9, presented to my office with creatinine of 1.8. Repeat creatinine this morning is 2.0, hemoglobin stable 14. Uric acid previously is 8.5. IMPRESSION: Mr. Sweeney is a pleasant 53-year-old male with, 1. History of right undescended testis, status post right radical orchiectomy, negative for malignancy. 2. History of elevated PSA, previously biopsy negative for malignancy, volume 69 g with intravesical median lobe. 3. Acute urinary retention with gross hematuria on Eliquis, PVR 2200 mL. initial urine output was clear, hematuria expected with decompression of significantly distended bladder exacerbated by chronic anticoagulation. 4. Postobstructive diuresis without evidence of hypotension or hypokalemia. 5. Persistent renal insufficiency, with history of proteinuria. 6. History of atrial fibrillation, on digoxin, recently on Eliquis. RECOMMENDATION AND PLAN: The patient is to continue his Flomax b.i.d., Avodart. As he does have leukocytosis, recommend short course of empiric antibiotic therapy. I have discussed this case with Dr. Yang, who will electively perform a stress test, approved to hold his Eliquis due to presenting gross hematuria. No anticoagulation as we are monitoring his urine output for clearance hematuria Appreciate Nephrology and Medical evaluation. When he is medically cleared, patient maybe discharged home, anticipate will be in-house over the weekend to monitor his kidney function and degree of hematuria. The patient has close followup with me if needed this Friday; however, I do anticipate the patient will be in-house for medical optimization. He agrees with current plan of management. Dr. Omalley will be rounding for me this weekend. Job ID: [id number]
[2019-02-19 18:43] LABS: Creatinine, Urine 65.05 mg/dL (63-166)
[2019-02-19] MEDS ORDERED: Ciprofloxacin 500 MG TAB PO SCH (20:00)
[2019-02-19] MEDS: Famotidine 20 MG TAB PO SCH (20:41)
[2019-02-19] MEDS: Tamsulosin HCl 0.4 MG CAP PO SCH (20:41)
--- NOTE | 2019-02-20 00:40 | CON ---
DATE OF CONSULTATION: 02/19/2019 CONSULTING PHYSICIAN: Leonie Mars MD REASON FOR CONSULT: Acute kidney injury. REASON FOR ADMISSION: Hematuria and renal failure. HISTORY OF PRESENT ILLNESS: A 53-year-old male with a history of atrial fibrillation, on anticoagulation, CHF, diastolic dysfunction, hypertension, obesity, GERD, proteinuria, was sent from Dr. Patel's office for persistent hematuria and kidney failure. The patient is on workup with Dr. Patel for urinary retention and hydronephrosis, and he had a Rolle placed because of 2.2 L of urine last week, and the patient was also on Eliquis, but even despite holding it, he continues to have hematuria and also persistent elevation in his creatinine. His creatinine was found to be 2.09 today, baseline is around 1.06, and Nephrology was consulted. [facility] but never showed up despite having appointment for 3 different days. The patient is feeling good. No chest pain or palpitation reported. No fever or chills. No nausea or vomiting. PAST MEDICAL HISTORY: Positive for atrial fibrillation, CHF, urinary retention, chronic alcohol abuse, hypertension, obesity, BPH, sleep apnea. PAST SURGICAL HISTORY: Inguinal hernia repair, testicular removal. HOME MEDICATIONS: 1. Tamsulosin. 2. Potassium chloride. 3. Multivitamin. 4. Lasix. 5. Diltiazem. 6. Digoxin. ALLERGIES: NO KNOWN DRUG ALLERGIES. SOCIAL HISTORY: Alcohol use present and he did snuff tobacco. FAMILY HISTORY: No history of kidney disease. REVIEW OF SYSTEMS: CONSTITUTIONAL: Negative for weight loss or gain, ability to conduct usual activities. SKIN: Negative for rash, itching. EYES: Negative for double vision, pain. ENT/MOUTH: Negative for nose bleeding, neck stiffness, pain, tenderness. CARDIOVASCULAR: Negative for palpitations, dyspnea on exertion, orthopnea. RESPIRATORY: Negative for shortness of breath, wheezing, cough, hemoptysis, fever or night sweats. GASTROINTESTINAL: Negative for poor appetite, abdominal pain, heartburn, nausea, vomiting, constipation, or diarrhea. GENITOURINARY: Negative for urgency, frequency, dysuria, nocturia. MUSCULOSKELETAL: Negative for pain, swelling. NEUROLOGIC/PSYCHIATRIC: Negative for anxiety, depression. ALLERGY/IMMUNOLOGIC: Negative for skin rash, bleeding tendency. Rest are negative review of systems. PHYSICAL EXAMINATION: GENERAL: This is a well-built male, in no apparent distress. VITAL SIGNS: Temperature 98.0, pulse 82, respiratory rate 18. Blood pressure 125/83. HEENT: Atraumatic and normocephalic. Oral mucosa moist. NECK: Supple. CARDIOVASCULAR: S1 and S2 heard. Regular rate and rhythm. RESPIRATORY: Clear. ABDOMEN: Soft. MUSCULOSKELETAL: 1+ edema. DERMATOLOGIC: No skin rash. NEUROLOGIC: Alert and awake. PSYCHIATRIC: Mood and affect normal. LABORATORY DATA: Hemoglobin is 14.0, potassium 4.2, BUN is 30, creatinine is 2.09, urine protein 3+. ASSESSMENT AND PLAN: 1. Acute kidney injury, most likely volume depletion. Continue hydration. Continue Rolle. Follow up with Urology. 2. Hematuria, per Urology. 3. Proteinuria. We will check urine protein to creatinine ratio, may have to repeat it also. We will also check DEON level. 4. Edema, controlled. 5. Hypertension, stable. Plan is to continue IV fluids, avoid nephrotoxins, and monitor renal function closely. We will follow. We will also check a hemoglobin A1c. Job ID: [id number]
[2019-02-20] MEDS: Sodium Chloride 0.9% 1,000 ML IV SCH (04:21)
[2019-02-20 06:00] LABS: #Basophils 0.1 thou/uL (0.0-0.2); #Eosinphils 0.9 thou/uL (0.0-0.7); #Lymphocytes 1.4 thou/uL (1.20-3.40); #Monocytes 0.7 thou/uL (0.11-0.59); #Neutrophils 9.9 thou/uL (1.40-6.50); %Basophils 0.4 % (0.0-1.0); %Eosinophils 6.7 % (0.0-10.0); %Lymphocytes 10.9 % (21.0-51.0); %Monocytes 5.7 % (0.0-10.0); %Neutrophils 76.3 % (42.0-75.0); Hemoglobin 13.4 g/dL (14.0-18.0); Mean Corpuscular HGB CONC 31.1 g/dL (32.0-36.0); Mean Corpuscular Hemoglobin 25.7 pg (27.0-31.0); Mean Corpuscular Volume 82.8 fL (78.0-98.0); Mean Platelet Volume 8.7 fL (7.4-10.4); Platelet Count 201 thou/uL (130-400)
[2019-02-20 06:17] LABS: Hemoglobin A1c 7.4 % (4.0-6.0)
[2019-02-20 06:23] LABS: ALT (SGPT) 11 U/L (8-55); AST (SGOT) 9 U/L (5-34); Albumin 3.2 g/dL (3.5-5.0); Alkaline Phosphatase 60 U/L (40-150); Anion Gap 13 mmol/L (10-20); BUN (Urea Nitrogen) 26 mg/dL (8.4-25.7); Bilirubin, Total 0.7 mg/dL (0.2-1.2); Calc. Creatinine Clearance 68 mL/min (70-130); Calcium 8.4 mg/dL (7.8-10.44); Carbon Dioxide 26 mmol/L (22-29); Chloride 102 mmol/L (98-107); Estimated GFR-MDRD 43; Globulin 2.5 g/dL (2.4-3.5); Glucose 207 mg/dL (70-105); Protein, Total 5.7 g/dL (6.0-8.3); Sodium 137 mmol/L (136-145)
[2019-02-20] MEDS: Famotidine 20 MG TAB PO SCH ×2 (08:28→20:13)
[2019-02-20] MEDS: Tamsulosin HCl 0.4 MG CAP PO SCH ×2 (08:29→20:12)
[2019-02-20] MEDS: Dutasteride 0.5 MG CAP PO SCH (08:29)
[2019-02-20] MEDS: Multivit, Therapeutic 1 TAB PO SCH (08:29)
[2019-02-20] MEDS ORDERED: Tamsulosin HCl 0.4 MG CAP PO SCH (09:00)
[2019-02-20] MEDS ORDERED: Digoxin 0.25 MG TAB PO SCH (11:45)
--- NOTE | 2019-02-20 12:18 | PRG ---
DATE OF SERVICE: 02/20/2019 SUBJECTIVE: The patient is seen and examined at the bedside. He does not have any abdominal pain. His urine is still reddish, but it is better according to him. His appetite is fair. OBJECTIVE: VITAL SIGNS: Blood pressure is 122/73, pulse is 96, temperature is 98.3, respirations 16, O2 saturation is 97% on room air. HEENT: His head is atraumatic and normocephalic. Eyes are PERRLA. Sclerae are nonicteric. Conjunctivae pinkish. Oral mucosa is moist. Tongue is covered with whitish discharge. NECK: Supple. LUNGS: Clear. HEART: S1, S2 normal. No S3. No S4. ABDOMEN: Soft, somewhat obese, nontender. Bowel sounds present. No organomegaly. EXTREMITIES: No clubbing, cyanosis, or edema. He has the Rolle catheter in place. NEUROLOGIC: He is alert and oriented x4. There is no any motor deficits present. Cranial nerves are intact. LABORATORY DATA: Labs showed white count of 13.0, hemoglobin 13.4, hematocrit 43.0, platelet count is 201. Electrolytes within normal limits. BUN 26, creatinine 1.67, glucose 207, hemoglobin 7.4, albumin 3.2, total protein 5.7. IMPRESSION: 1. Acute renal insufficiency. 2. Leukocytosis. 3. Atrial fibrillation. Liquids on hold. We will start digoxin since this was the plan, but he is still not on it. 4. History of chronic diastolic congestive heart failure. 5. Benign prostatic hyperplasia, on Flomax, which was resumed. The patient was seen by a puppet maker and diagnostic workup in progress. We will continue IV fluids and gentle hydration. We will watch his white count and kidney function and we will encourage him to ambulate. Job ID: [id number]
--- NOTE | 2019-02-20 12:41 | PRG ---
DATE OF SERVICE: 02/20/2019 SUBJECTIVE: The patient states he is feeling fine. No bladder pain or spasms. He is not having any significant bother with his catheter. OBJECTIVE: VITAL SIGNS: Temperature 98.9, pulse 61, respirations 18, blood pressure 129/79, and O2 sats 94% on room air. GENERAL: No apparent distress. Communicating and alert. CARDIOVASCULAR: Regular rate and rhythm. ABDOMEN: Soft, nontender, and nondistended. : Rolle catheter in place with blood-tinged urine, which is transparent without clots. EXTREMITIES: No significant clubbing, cyanosis, or edema. LABORATORY EVALUATION: The full set of labs are in the [facility], which I have reviewed. Of note, the patient's creatinine is 1.67, which is decreased from 2.09, yesterday. Hemoglobin is 13.4 with a white count of 13. ASSESSMENT AND PLAN: A 53-year-old white male with severe urinary retention and postobstructive diuresis with improving creatinine. His hematuria seems to be resolving. I would recommend continuation of the Rolle catheter, Dr. Patel has requested 2 weeks. Also, the patient should remain off Eliquis until his hematuria has fully resolved and Dr. Patel approves restarting. From a urologic standpoint, the patient can probably be discharged tomorrow if all medical issues are resolved and he is not having significant diuresis. If he stays in the hospital until Friday, Dr. Patel will see him then. Otherwise, if he is discharged, he does have an appointment with Dr. Patel on Friday. I will continue to see him this weekend while he is in the hospital and continue to follow. Job ID: [id number]
--- NOTE | 2019-02-20 14:20 | PRG ---
DATE OF SERVICE: 02/20/2019 SUBJECTIVE: Patient was seen and examined at bedside and overnight events noted. Patient denies any shortness of breath or chest pain or palpitation. No history of nausea or vomiting or diarrhea or fever or chills or cramps. OBJECTIVE: GENERAL: This is a well-built male, in no apparent distress. VITAL SIGNS: Temperature 98.3. Heart rate 96. Respiratory rate 16. Blood pressure 122/73. HEENT: Atraumatic, normocephalic. Oral mucosa is moist NECK: Supple. CARDIOVASCULAR: S1, S2 heard. Rate and rhythm regular. RESPIRATORY: Clear to auscultation. GASTROINTESTINAL: Abdomen is soft. MUSCULOSKELETAL: No tenderness. No edema. DERMATOLOGIC: No skin rash. NEUROLOGIC: Alert and awake and oriented X3. No focal neurologic deficits. Moving all the extremities. PSYCHIATRIC: Mood and affect normal. LABORATORY DATA: Potassium is 4.7, BUN is 26, and creatinine is 1.3. ASSESSMENT AND PLAN: 1. Acute kidney injury on chronic kidney disease stage 3, getting better. 2. Hematuria. Follow Urology. 3. Proteinuria. We will check immunological labs. 4. Edema, controlled. 5. Hypertension, stable. 6. We will follow. Job ID: [id number]
[2019-02-21] MEDS: Sodium Chloride 0.9% 1,000 ML IV SCH ×2 (05:13→20:11)
[2019-02-21] MEDS: Saccharomyces boulardii 250 MG CAP PO SCH (09:46)
[2019-02-21] MEDS: Multivit, Therapeutic 1 TAB PO SCH (09:46)
[2019-02-21] MEDS: Tamsulosin HCl 0.4 MG CAP PO SCH ×2 (09:46→20:05)
[2019-02-21] MEDS: Famotidine 20 MG TAB PO SCH ×2 (09:46→20:05)
[2019-02-21] MEDS: Dutasteride 0.5 MG CAP PO SCH (09:46)
[2019-02-21] MEDS: Digoxin 0.25 MG TAB PO SCH (12:12)
[2019-02-21 12:13] LABS: #Eosinphils 0.8 thou/uL (0.0-0.7); #Lymphocytes 1.5 thou/uL (1.20-3.40); #Monocytes 0.6 thou/uL (0.11-0.59); #Neutrophils 8.6 thou/uL (1.40-6.50); %Basophils 0.4 % (0.0-1.0); %Lymphocytes 12.7 % (21.0-51.0); %Monocytes 5.5 % (0.0-10.0); %Neutrophils 74.4 % (42.0-75.0); Hemoglobin 13.1 g/dL (14.0-18.0); Mean Corpuscular HGB CONC 31.2 g/dL (32.0-36.0); Mean Corpuscular Hemoglobin 26.7 pg (27.0-31.0); Mean Corpuscular Volume 85.4 fL (78.0-98.0); Mean Platelet Volume 8.5 fL (7.4-10.4); Platelet Count 222 thou/uL (130-400); RBC Distribution Width 14.3 % (11.5-14.5); White Blood Cell (WBC) Count 11.6 thou/uL (4.8-10.8)
[2019-02-21 12:33] LABS: ALT (SGPT) 12 U/L (8-55); AST (SGOT) 10 U/L (5-34); Albumin 3.1 g/dL (3.5-5.0); Alkaline Phosphatase 55 U/L (40-150); Anion Gap 11 mmol/L (10-20); BUN (Urea Nitrogen) 18 mg/dL (8.4-25.7); Bilirubin, Total 0.4 mg/dL (0.2-1.2); Calc. Creatinine Clearance 87 mL/min (70-130); Calcium 8.3 mg/dL (7.8-10.44); Carbon Dioxide 27 mmol/L (22-29); Chloride 106 mmol/L (98-107); Estimated GFR-MDRD 57; Globulin 2.4 g/dL (2.4-3.5); Glucose 163 mg/dL (70-105); Potassium 4.2 mmol/L (3.5-5.1); Protein, Total 5.5 g/dL (6.0-8.3); Sodium 140 mmol/L (136-145)
--- NOTE | 2019-02-21 12:33 | PRG ---
DATE OF SERVICE: 02/21/2019 SUBJECTIVE: The patient states he is feeling fine. Has no complaints. No bladder spasms. OBJECTIVE: VITAL SIGNS: Temperature 98.4, pulse 73, respirations 18, blood pressure 146/81, saturation 96% on room air. GENERAL: No apparent distress. CARDIOVASCULAR: Regular rate and rhythm. ABDOMEN: Soft, nontender, and nondistended. : Rolle catheter in place and secured with a slightly blood-tinged urine. LABORATORY DATA: No new labs today. They have been drawn, but are currently not available at the time of this dictation. ASSESSMENT AND PLAN: A 53-year-old white male with severe urinary retention and overdistension injury, currently with Rolle catheter and improving creatinine. The patient did have postobstructive diuresis resulting in another acute kidney injury. This seems to be resolving. At this time, assuming his labs today demonstrate further improvement of his creatinine, I do not think the patient needs to be in the hospital anymore. From a Urology standpoint, he can be discharged. He does have followup with Dr. Patel tomorrow. If he is kept in the hospital overnight again, Dr. Patel will resume care in the morning, but otherwise from my standpoint and from Urology standpoint, the patient can be discharged with his Rolle catheter in place, to follow up with Dr. Patel, ultimately make plans long-term about his urinary retention issues. Job ID: [id number]
--- NOTE | 2019-02-21 14:05 | PRG ---
DATE OF SERVICE: 02/21/2019 SUBJECTIVE: Patient was seen and examined at bedside and overnight events noted. Patient denies any shortness of breath or chest pain or palpitation. No history of nausea or vomiting or diarrhea or fever or chills or cramps. OBJECTIVE: GENERAL: This is a well-built male, in no apparent distress. VITAL SIGNS: Temperature 98.4. Pulse 70. Respiratory rate 18. Blood pressure 146/81. HEENT: Atraumatic, normocephalic. Oral mucosa is moist NECK: Supple. CARDIOVASCULAR: S1, S2 heard. Rate and rhythm regular. RESPIRATORY: Clear to auscultation. GASTROINTESTINAL: Abdomen is soft. MUSCULOSKELETAL: No tenderness. No edema. DERMATOLOGIC: No skin rash. NEUROLOGIC: Alert and awake and oriented X3. No focal neurologic deficits. Moving all the extremities. PSYCHIATRIC: Mood and affect normal. LABORATORY DATA: Potassium is 4.2, BUN is 18, and creatinine is 1.3. ASSESSMENT AND PLAN: 1. Acute kidney injury on chronic kidney disease, stage 3, stable. 2. Hematuria. 3. Proteinuria. 4. Edema. 5. Hypertension. Labs are better. Monitor one more day. Avoid nephrotoxins. Urine culture is negative. Job ID: [id number]
[2019-02-21] MEDS ORDERED: Dextrose 50% Abboject 50 ML SYRINGE SLOW IVP PRN (15:52)
[2019-02-21] MEDS ORDERED: HumaLOG 300 UNITS/3 ML VIAL SC PRN (15:52)
[2019-02-21] MEDS ORDERED: Dextrose 5% in Water 1,000 ML IV PRN (15:52)
--- NOTE | 2019-02-21 16:26 | PRG ---
DATE OF SERVICE: 02/21/2019 SUBJECTIVE: The patient is seen and examined at bedside. He does not have much complaints to offer. His urine is significantly less reddish and his urine output is more than 4900 for the last 24 hours. His intake was 3642, at the same time he is in negative balance at 1333. Clinically, he is doing well. He is not in any pain. OBJECTIVE: VITAL SIGNS: Blood pressure is 146/81, pulse is 73, temperature is 98.4, respirations 18, and O2 saturation is 96% on room air. HEENT: His head is atraumatic and normocephalic. Eyes are PERRLA. Sclerae are nonicteric. Oral mucosa is moist. NECK: Supple. LUNGS: Clear. HEART: S1 and S2 normal. No S3. No S4. No any murmur. ABDOMEN: Soft and nontender. Bowel sounds are present. No organomegaly. EXTREMITIES: No clubbing, cyanosis, or edema. NEUROLOGIC: He is alert and oriented x4. There are no any motor or sensory deficits. LABORATORY DATA: Labs showed white count of 11.6, hemoglobin of 13.1, hematocrit 41.8, platelet count 222,000. Electrolytes within normal limits. BUN of 18, creatinine 1.31, glucose of 163, total protein 5.5, and albumin 3.1. Microbiology, urine no growth at 36 hours. IMPRESSION: 1. Acute renal insufficiency, improving with gentle hydration. We will continue that the rate at 50 mL/hour. 2. Leukocytosis, improved to 11.6 from 16.7. This is most likely related to his urinary obstruction. 3. Elevated glycemia and he might have diabetes and he is not aware of that. We will check his hemoglobin A1c. 4. History of chronic diastolic congestive heart failure. 5. Benign prostatic hyperplasia, on Flomax. We will recheck his BMP tomorrow morning and I am going to check his hemoglobin A1c to check for diabetes. Job ID: [id number]
[2019-02-22 05:20] LABS: Anion Gap 12 mmol/L (10-20); BUN (Urea Nitrogen) 19 mg/dL (8.4-25.7); Calc. Creatinine Clearance 89 mL/min (70-130); Calcium 8.8 mg/dL (7.8-10.44); Carbon Dioxide 26 mmol/L (22-29); Chloride 109 mmol/L (98-107); Estimated GFR-MDRD 58; Glucose 151 mg/dL (70-105); Potassium 4.1 mmol/L (3.5-5.1); Sodium 143 mmol/L (136-145)
[2019-02-22] MEDS: Dutasteride 0.5 MG CAP PO SCH (08:18)
[2019-02-22] MEDS: Famotidine 20 MG TAB PO SCH (08:18)
[2019-02-22] MEDS: Saccharomyces boulardii 250 MG CAP PO SCH (08:18)
[2019-02-22] MEDS: Digoxin 0.25 MG TAB PO SCH (08:19)
[2019-02-22] MEDS: Tamsulosin HCl 0.4 MG CAP PO SCH (08:19)
[2019-02-22] MEDS: Multivit, Therapeutic 1 TAB PO SCH (08:19)
--- NOTE | 2019-02-22 09:35 | PRG ---
DATE OF SERVICE: 02/22/2019 SUBJECTIVE: The patient is feeling better. Events over the weekend reviewed. Medical renal optimization. OBJECTIVE: Vital signs are stable. He is afebrile. I's and O's; 3230 in, output is 4150 out. Negative 920 mL of pink-tinged ayde urine. LABORATORY DATA: White count admitting 16, currently 11, hemoglobin stable at 13, platelet 222. Urine culture negative. Renal function today is 1.29 with sodium and potassium within normal limits. His creatinine has improved from presenting 2.0. Appreciate Medical, Nephrology consult. IMPRESSION AND PLAN: Mr. Sweeney is a 53-year-old male, who presents with a history of acute urinary retention with postvoid residual of 2200 mL. 1. Hematuria, resolving improved. H&H hemodynamically stable 2. Renal insufficiency, acute on chronic, improving near his baseline. From urologic perspective, antibiotic can be discontinued as urine culture is negative. As previous, Eliquis will be on hold due to presenting hematuria which has been approved by Cardiology. Please schedule a followup with Dr. Yang in the next week or two to proceed with stress test. The patient informed that if he is cleared by Nephrology, will go home with indwelling Rolle catheter with BPH medications. As previously advised, Eliquis will be on hold. He will be discharged with indwelling Rolle catheter. Await Nephrology/medical clearance for dc home . Job ID: [id number] [facility]
[2019-02-22 12:06] VITALS: BP 125/78; TEMP 97.7
--- NOTE | 2019-02-23 02:40 | DIS ---
DATE OF ADMISSION: 02/19/2019 DATE OF DISCHARGE: 02/22/2019 DISCHARGE DIAGNOSES: 1. Acute renal insufficiency, improved with gentle hydration. 2. Leukocytosis, resolved. 3. Diabetes mellitus, new onset, type 2. 4. Benign prostatic hyperplasia, on Flomax. 5. Hematuria. 6. History of chronic diastolic congestive heart failure. 7. History of atrial fibrillation. CONSULTANTS: Dr. Patel, Urology Service. Dr. Venegas, Nephrology Service. Dr. Omalley, Urology Service. HOSPITAL COURSE: The patient was a 53-year-old male, who was admitted directly from Dr. Patel's office for renal failure. He has a history of atrial fibrillation, on chronic anticoagulation with Eliquis; chronic diastolic congestive heart failure, benign prostatic hyperplasia leading to urinary retention. Apparently, his Eliquis was stopped about 3-4 days ago prior to this hospitalization. He was seen in the clinic at Urology office and Rolle catheter was placed and found to have hematuria despite of being off Eliquis for few days. Also, he had some acute renal failure. His creatinine was up to 2.09, was planned to have some surgery on his prostate, I believe then this happened. Also, he was supposed to have stress test with Dr. Yang on outpatient basis. During this hospitalization, he did not have any fever, chills, nausea, or vomiting. Denied any chest pain or shortness of breath. He was hemodynamically stable. A CT of the abdomen and pelvis done 3 days prior to this admission in the outpatient setting. His white count at the time of admission was up to 16.7, his BUN was 30, creatinine 2.09, blood glucose was 200. Apparently, his hemoglobin A1c was checked in November 2018 and it was 5.5. The patient was admitted to the hospital. His Eliquis was obviously not continued because of his hematuria. He was placed on gentle hydration and Rolle output was monitored. He was started on ciprofloxacin and urine culture was done and came back negative. Digoxin level was done and it was normal. His kidney function gradually improved. His creatinine is down to 1.29 today. His hematuria almost cleared completely. Antibiotic was stopped. He is doing well. He is going home. We talked about his diabetes. His hemoglobin A1c came back at 7.4. He is going to stay on a diabetic diet and he will try to lose some weight and exercise. His urine showed opaque clarity, more than 300 proteins, large amount of blood, large amount of leukocyte esterases, rbc's greater than 50, wbc's 21-50, squamous epithelial cells 4 to 6, transitional epithelial cells 4 to 6, and renal epithelial cells 4-6, mucus 2+. Random protein was 1523 and creatinine was 65.05. PHYSICAL EXAMINATION: VITAL SIGNS: Today, blood pressure 125/78, pulse is 80, temperature is 97.7, respirations 16, O2 saturation is 98% on room air. HEENT: His head is atraumatic and normocephalic. Eyes are PERRLA. Sclerae are nonicteric. Oral mucosa is moist. NECK: Supple. LUNGS: Clear. HEART: S1 and S2, somewhat irregular. No S3. No S4. ABDOMEN: Soft, nontender. EXTREMITIES: No clubbing, cyanosis, or edema. He has indwelling Rolle in place. DIET: He is discharged home on 2000 calories ADA diet. ACTIVITY: Somewhat limited secondary to his Rolle catheter placed in his bladder. MEDICATIONS: At the time of discharge: 1. Flomax 0.4 mg once a day. 2. Multivitamin one a day. 3. Diltiazem 360 mg at bedtime. 4. Digoxin 0.25 mg once a day. 5. Avodart 0.5 mg once a day. 6. Tylenol 650 mg q.4 hours p.r.n. as needed. FOLLOWUP: He will follow up with Dr. Patel, with Dr. Venegas and Dr. Yang. He is going to call those 3 doctor's offices and set up followup appointment. He is released with Rolle catheter to home. DISPOSITION: Home. TIME SPENT: Time spent on this discharge is less than 30 minutes. Job ID: [id number]
[2019-02-23 10:55] LABS: ANA Symphony (Qualitative) Negative (Negative); ANA Symphony (Quantitative) Less than 0.1 Ratio (< 0.7 Negative); dsDNA IgG Antibody 1.3 IU/mL (<10 Negative)
[2019-02-23 11:14] LABS: EliA Vaculitis New Method **** NEW METHOD ****; Glomerular Basemt Membrane Ab Less than 1.9 EliAU/mL (<7 Negative)
[2019-02-23 15:10] LABS: Cytoplasmic (C-ANCA) <1:20 titer (Neg:<1:20); Myeloperoxidase AutoAbs <9.0 U/mL (0.0-9.0); Perinuclear (P-ANCA) <1:20 titer (Neg:<1:20); Proteinase-3 AutoAbs Less than 3.5 U/mL (0.0-3.5)
== END 2019-02-22 14:55 | disposition home or self-care (01) | DRG 683 ==
LOC: SURG A 09:50
PROVIDERS: ADMIT Internal Medicine; ATTEND Internal Medicine
DX: N17.9 Acute kidney failure, unspecified (principal); I50.32 Chronic diastolic (congestive) heart failure; I13.0 Hypertensive heart and chronic kidney disease with heart failure and stage 1 through stage 4 chronic kidney disease, or unspecified chronic kidney disease; I48.91 Unspecified atrial fibrillation; N40.1 Benign prostatic hyperplasia with lower urinary tract symptoms; K21.9 Gastro-esophageal reflux disease without esophagitis; G47.33 Obstructive sleep apnea (adult) (pediatric); E66.9 Obesity, unspecified; D72.829 Elevated white blood cell count, unspecified; M10.9 Gout, unspecified; E86.9 Volume depletion, unspecified; E11.65 Type 2 diabetes mellitus with hyperglycemia; E11.22 Type 2 diabetes mellitus with diabetic chronic kidney disease; R31.9 Hematuria, unspecified; N18.3 Chronic kidney disease, stage 3 (moderate); Z68.34 Body mass index [BMI] 34.0-34.9, adult; Z79.01 Long term (current) use of anticoagulants; Z79.899 Other long term (current) drug therapy
CPT/HCPCS: 36415; 36416; 80048; 80053; 80162; 81001; 82570; 83036; 83516; 83520; 84156; 85025; 86038; 86225; 86256; 87086

== ENCOUNTER 2019-03-31 13:15 | Outpatient (CLI) | payer OTHER ==
[2019-03-31 14:22] LABS: Hemoglobin 13.9 g/dL (14.0-18.0); Mean Corpuscular HGB CONC 33.7 g/dL (32.0-36.0); Mean Corpuscular Hemoglobin 28.1 pg (27.0-31.0); Mean Corpuscular Volume 83.5 fL (78.0-98.0); Mean Platelet Volume 8.1 fL (7.4-10.4); Platelet Count 225 thou/uL (130-400); Red Blood Cell (RBC) Count 4.95 mill/uL (4.70-6.10); White Blood Cell (WBC) Count 10.1 thou/uL (4.8-10.8)
[2019-03-31 14:31] LABS: Prothrombin Time 13.5 SEC (12.0-14.7)
[2019-03-31 14:32] LABS: PTT 25.3 SEC (22.9-36.1)
[2019-03-31 14:44] LABS: Anion Gap 15 mmol/L (10-20); BUN (Urea Nitrogen) 23 mg/dL (8.4-25.7); Calc. Creatinine Clearance 0 mL/min (70-130); Calcium 9.3 mg/dL (7.8-10.44); Carbon Dioxide 21 mmol/L (22-29); Chloride 109 mmol/L (98-107); Estimated GFR-MDRD 63; Glucose 91 mg/dL (70-105); Potassium 4.5 mmol/L (3.5-5.1); Sodium 140 mmol/L (136-145)
== END 2019-03-31 13:16 | disposition home or self-care (01) ==
LOC: LABBT 13:15
PROVIDERS: ATTEND Urology
DX: Z01.818 Encounter for other preprocedural examination (principal); N40.1 Benign prostatic hyperplasia with lower urinary tract symptoms
CPT/HCPCS: 80048; 85027; 85610; 85730; 93005; 93010

== ENCOUNTER 2019-04-14 07:03 | Inpatient (IN) | payer OTHER ==
[2019-04-14] MEDS ORDERED: Levofloxacin 500 mg/D5W 100 ml Premix Bag ONE (08:15)
[2019-04-14] MEDS ORDERED: Fentanyl 100 MCG/2 ML VIAL ONE ×3 (09:23→12:22)
[2019-04-14] MEDS ORDERED: Iothalamate Meglumine 60% 50 ML VIAL FS ONE (09:31)
[2019-04-14] MEDS ORDERED: Lidocaine 1% PF 5 ML VIAL ONE (11:47)
[2019-04-14] MEDS ORDERED: Morphine 2 MG/ML SYRINGE SLOW IVP PRN (11:47)
[2019-04-14] MEDS ORDERED: Dexamethasone 20 MG/5 ML VIAL ONE (11:47)
[2019-04-14] MEDS ORDERED: Glycopyrrolate 0.2 MG/ML 5 ML SYRINGE ONE (11:47)
[2019-04-14] MEDS ORDERED: PHENYLEPHRINE-NS 100 MCG/ML 10 ML SYRINGE ONE (11:47)
[2019-04-14] MEDS ORDERED: Esmolol 100 MG/10 ML VIAL ONE (11:47)
[2019-04-14] MEDS ORDERED: PROPOFOL 200 MG/20 ML VIAL ONE (11:47)
[2019-04-14] MEDS ORDERED: diphenhydrAMINE 50 MG/ML VIAL IVP PRN (11:47)
[2019-04-14] MEDS ORDERED: Metoprolol Tartrate 5 MG/5 ML VIAL ONE (11:47)
[2019-04-14] MEDS ORDERED: HYDROcodone/Acetaminophen 5/325 mg Tablet PO PRN ×2 (11:47)
[2019-04-14] MEDS ORDERED: Acetaminophen 500 MG TAB PO PRN (11:47)
[2019-04-14] MEDS ORDERED: Bisacodyl 10 MG SUPP PR PRN (11:47)
[2019-04-14] MEDS ORDERED: Morphine 4 MG/ML VIAL SLOW IVP PRN (11:47)
[2019-04-14] MEDS ORDERED: Rocuronium Bromide 10 MG/ML (10ML VIAL) ONE (11:47)
[2019-04-14] MEDS ORDERED: Mag-Al 1200 mg/1200 mg/30 ML UDCUP PO PRN (11:47)
[2019-04-14] MEDS ORDERED: hydrALAZINE 20 MG/ML VIAL SLOW IVP PRN (11:47)
[2019-04-14] MEDS ORDERED: Ondansetron PF 4 MG/2 ML Vial ONE (11:47)
[2019-04-14] MEDS ORDERED: Zolpidem Tartrate 5 MG TAB PO PRN (11:47)
[2019-04-14] MEDS ORDERED: Promethazine HCl 25 MG/ML VIAL IM PRN (12:35)
[2019-04-14] MEDS ORDERED: Ondansetron HCl/PF 4 MG/2 ML Vial IVP PRN (12:35)
[2019-04-14] MEDS ORDERED: Promethazine HCl 25 MG/ML VIAL SLOW IVP PRN (12:35)
--- NOTE | 2019-04-14 12:38 | OP ---
DATE OF PROCEDURE: 04/14/2019 PREOPERATIVE DIAGNOSES: A 53-year-old male with history of urinary retention, postvoid residual of 2.2 L, history of gross hematuria secondary to retention. POSTOPERATIVE DIAGNOSES: A 53-year-old male with history of urinary retention, postvoid residual of 2.2 L, history of gross hematuria secondary to retention. PROCEDURES PERFORMED: 1. Cystoscopy. 2. Transurethral resection of prostate. ANESTHESIA: General. COMPLICATIONS: None apparent. DISPOSITION: To recovery room in stable condition. SPECIMEN: TUR of prostate. ESTIMATED BLOOD LOSS: Less than 100 mL. IV FLUIDS: 800 mL. INDICATIONS FOR PROCEDURE AND HISTORY: Mr. Sweeney is a 53-year-old male with history of urinary retention, significantly distended bladder as he presented with over 2 L of PVR. He has had indwelling Rolle catheter. Cardiac clearance in chart due to history of AFib and RVR. Surgery was uneventful. The patient will be admitted postop. Risks and complications and indications for the procedure were reviewed with the patient in detail including, but not limited to, persistent urinary retention, bleeding, pain, infection, clot retention, stricture formation, possible secondary procedure, ureteral, bladder, kidney injury. All questions answered to his satisfaction. He desired to proceed. DESCRIPTION OF PROCEDURE: After an informed consent was signed, the patient was taken to the operating room, placed in a dorsal lithotomy position with the genital area prepped and draped in the usual surgical sterile fashion. A 21-Spanish cystoscope was utilized for cystoscopy, which demonstrated trilobar hyperplasia of the prostate. Intravesical median lobe was noted. The right UO was able to be identified with a 70-degree lens, appeared patulous with a Hutch diverticulum just adjacent to it about 1 cm. Left UO was identified as well with interureteric ridge using a 70-degree lens. No bladder stones were seen. At this time, we transitioned to a 26-Spanish continuous sheath resectoscope with a visual obturator. Transurethral resection of the prostate was performed. We took down the median lobe 1st. Care was taken to avoid the ureteral orifices. With resection of the median lobe flat to the level of the prostatic urethra, I was able to visualize the UOs uneventfully well away from the line of resection at the bladder neck. I did not aggressively resect further median lobe as there was a high chance of undermining in this region. I did resect the obstructive component down first to the prostatic urethra. We then resected the lateral lobe systematically left and then subsequently right. We resected the lateral lobes with resolution of his obstructive lateral lobes with improvement in his bladder neck in caliber of the urethral lumen improved with improvement of his obstructive component. Hemostasis was obtained throughout the procedure. At the end of the procedure, open bladder neck noted , and he tolerated the procedure well. All chips were evacuated with Euro Dream Heat evacuator and good hemostasis was obtained. A 22-Spanish 3-way Rolle catheter was inserted with 30 mL of sterile water insufflated and CBI tubing attached, demonstrating clear to pink tinged output. He has had a history of atrial fibrillation, heart rate ran anywhere from 130 to 140 throughout the procedure with RVR. The patient will be admitted to [facility]. Cardiology consultation to monitor his ventricular rate would be advised. Contraindicated for anticoagulation due to recent TURP. Therefore, bilateral RUTH ANN hose and SCDs will be placed. Job ID: [id number] [facility]
[2019-04-14 13:29] VITALS: BMI 34.9
[2019-04-14] MEDS: cefTRIAXone\\ROCEPHIN 1 GM in Sodium Chloride 0.9% 100 ML IVPB SCH (14:18)
[2019-04-14] MEDS: Sodium Chloride 0.9% 1,000 ML IV SCH ×2 (14:19→22:08)
[2019-04-14 14:35] LABS: #Eosinphils 0.1 thou/uL (0.0-0.7); #Lymphocytes 0.8 thou/uL (1.20-3.40); #Monocytes 0.2 thou/uL (0.11-0.59); #Neutrophils 14.3 thou/uL (1.40-6.50); %Basophils 0.2 % (0.0-1.0); %Eosinophils 0.7 % (0.0-10.0); %Lymphocytes 4.9 % (21.0-51.0); %Neutrophils 93.2 % (42.0-75.0); Mean Corpuscular HGB CONC 33.6 g/dL (32.0-36.0); Mean Corpuscular Hemoglobin 28.1 pg (27.0-31.0); Mean Corpuscular Volume 83.8 fL (78.0-98.0); Mean Platelet Volume 7.8 fL (7.4-10.4); Platelet Count 222 thou/uL (130-400); RBC Distribution Width 13.5 % (11.5-14.5); White Blood Cell (WBC) Count 15.4 thou/uL (4.8-10.8)
[2019-04-14 14:56] LABS: Anion Gap 15 mmol/L (10-20); BUN (Urea Nitrogen) 25 mg/dL (8.4-25.7); Calc. Creatinine Clearance 87 mL/min (70-130); Calcium 9.2 mg/dL (7.8-10.44); Carbon Dioxide 20 mmol/L (22-29); Chloride 106 mmol/L (98-107); Estimated GFR-MDRD 55; Glucose 139 mg/dL (70-105); Potassium 4.7 mmol/L (3.5-5.1); Sodium 136 mmol/L (136-145)
[2019-04-14] MEDS ORDERED: Digoxin 0.5 MG/2 ML AMP SLOW IVP SCH (15:15)
[2019-04-14] MEDS ORDERED: Diltiazem 125 MG in Sodium Chloride 0.9% 100 ML IVPB SCH (18:15)
[2019-04-14] MEDS: Docusate 100 MG CAP PO SCH (20:28)
[2019-04-14] MEDS: Gabapentin 100 MG CAP PO SCH (20:28)
[2019-04-14] MEDS: Famotidine/PF 20 mg/2ml Vial SLOW IVP SCH (20:29)
--- NOTE | 2019-04-15 01:51 | CON ---
DATE OF CONSULTATION: PRIMARY CARE DOCTOR: Sheryl Mike DO PRIMARY GAS FITTER: Larry Yang MD PRIMARY UROLOGIST: Caitlyn Patel DO REASON FOR CARDIOLOGY CONSULT: Atrial fibrillation with rapid ventricular response. HISTORY OF PRESENT ILLNESS: Mr. Sweeney is a 53-year-old male with a significant history of atrial fibrillation with Eliquis, which caused hematuria, BPH, hypertension and chronic diastolic heart failure. The patient underwent TURP today by Dr. Patel. Then, during the surgery, the patient's heart rate showed atrial fibrillation with rapid ventricular response. The patient was transferred to [facility] for further evaluation and treatment. The patient have seen Dr. Yang since December of this year for atrial fibrillation. On March 02, when the patient followed up with Dr. Yang's office, the patient's EKG showed atrial fibrillation with heart rate 105. Metoprolol succinate 25 mg once a day was resumed in February 2019. The patient's anticoagulants and digoxin has been off for more than 2 months due to hematuria, and according to Dr. Patel's report, the patient is going to be off any anticoagulant or aspirin for at least a couple of weeks from today. According to the patient, he has palpitation and dizziness for 2 to 3 minutes 3 to 4 times almost every day at home prior to this admission. At this moment, the patient complained of shortness of breath and mildly weakness since his pulses and heart rates going up to more than 100. Other than that, the patient denies chest pain, heaviness, tightness, dizziness, lightheadedness, or any other cardiac complaints at this moment. The patient had an echocardiogram done in November 2018, the EF appeared mildly depressed to the lower limit of normal. Mild mitral valve regurgitation, and mild tricuspid regurgitation. The patient had a stress test done at Dr. Yang's office in February, which shows no reversible ischemia. PAST MEDICAL HISTORY: 1. Atrial fibrillation. He was planned to have a cardioversion. However, the patient's anticoagulants has been on hold for more than 2 months due to hematuria. 2. BPH. 3. Chronic diastolic dysfunction diagnosed in November 2018. 4. Urinary retention due to BPH and the patient had a Rolle catheter for more than 8 weeks. 5. Hypertension. 6. History of chronic alcohol abuse. He has been abstinent for at least a few months. 7. BPH. 8. GERD. 9. Suspected sleep apnea. 10. Obesity with BMI of more than 30. PAST SURGICAL HISTORY: Inguinal hernia repair and testicular removal. FAMILY HISTORY: The patient denied any cardiovascular related family history in his family. SOCIAL HISTORY: He used to drink up to 12 pack of beer a day, but having quit his drinking for at least a few months. He denied drug abuse. He dips tobacco almost 1 can a day. ALLERGIES: NO KNOWN DRUG ALLERGIES. MEDICATIONS: 1. Flomax 0.4 mg once a day. 2. Gabapentin 100 mg 3 times a day. 3. Metoprolol 25 mg once a day. 4. Avodart 0.5 mg once a day. 5. Diltiazem 360 mg once a day. Those are medications he has not taken today prior to the surgery. REVIEW OF SYSTEMS: A 12-point review of systems negative unless otherwise mentioned in the HPI. PHYSICAL EXAMINATION: VITAL SIGNS: Blood pressure is 146/86, pulse is 110s to 150s at this moment with atrial fibrillation with RVR. Temperature 97.5, respiratory rate 16, O2 saturation 96% with room air. GENERAL: The patient is alert and oriented x4, not in acute distress. HEAD: Normocephalic, atraumatic. EYES: Extraocular muscle movement intact. ENT AND MOUTH: Oral and nasal mucosa moist without lesion. NECK: Supple. Normal range of motion. No JVD. RESPIRATORY: Lungs are clear to auscultate bilaterally. No wheezing, rales, or rhonchi noted. CARDIOVASCULAR: Irregularly irregular. No S3 or S4. No significant murmur, hives, or thrill noted. 2+ pulses in the bilateral upper and lower extremities. No edema in lower extremities. The patient denied claudication. Carotid pulses are present without bruit or thrill. ABDOMEN: Soft, nontender. No mass to palpitate. Bowel sounds are present. SKIN: Warm and dry. No lesion, rash, or erythema noted. MUSCULOSKELETAL: The patient able to move all extremities. The patient denied claudication. NEUROLOGIC: The patient is alert and oriented x4. Nonfocal. PSYCHIATRIC: The patient's mood is appropriate. LABORATORY DATA: WBC is 15.4, hemoglobin 16.0, hematocrit 47.7, platelets 222. Sodium 136, potassium 4.7, BUN 25, creatinine 1.35, glucose 139. INR is 1.0 on March 31. The patient's telemetry record shows the patient has atrial flutter. Heart rates 100s to 150s with a stable blood pressure. ASSESSMENT AND PLAN: 1. Atrial flutter/atrial fibrillation. At this moment, the patient's heart rate is in atrial flutter. The patient's CHADS-Vasc score is 2 with history of chronic diastolic heart failure and hypertension, although the patient is not on any anticoagulant since the patient's heart rates have been in the 140s to 150s, possibly the patient is going to undergo a NORMA and cardioversion tomorrow by Dr. Yang. The patient is going to be n.p.o. from midnight and Diltiazem IV drip is going to be started from today to control the patient's heart rate. 2. Benign prostatic hyperplasia, status post TURP procedure today by Dr. Patel. According to Dr. Patel, the patient is going to be off any anticoagulation for a couple of weeks and the patient is going to keep the Rolle catheter irrigation until tomorrow per Dr. Patel's note. 3. Hypertension. The patient's blood pressure is stable at this moment. We would like to continue to monitor. 4. Possible sleep apnea. The patient was really strongly recommended to have a sleep study as outpatient. 5. Tobacco abuse. He is dipping tobacco. The patient was strongly recommended to stop the dipping at this moment. 6. Chronic diastolic heart failure. The patient's condition is stable at this moment. He is on metoprolol, but he is not on FABRICIO inhibitor at this moment. He was on furosemide according to Dr. Yang's office. We would like to defer to Dr. Yang tomorrow. Thank you very much for Cardiology Service to participate in the care of this patient. We will follow along the patient's care team and make our further recommendations as appropriate. Job ID: [id number]
--- NOTE | 2019-04-15 02:01 | CON ---
DATE OF CONSULTATION: 04/14/2019 INDICATION FOR CONSULTATION: A 53-year-old patient with a history of chronic atrial fibrillation and flutter, who underwent a transurethral resection of prostate today and continued to have atrial fibrillation or atrial flutter with rapid ventricular response. Postoperatively, he has also had significant hematuria. He underwent a TURP today due to a history of urinary retention, which has been significant over 2 L the last time that I saw on the records and also has a history of hematuria. He had been placed on an oral anticoagulation due to the atrial fibrillation and flutter, was unable to tolerate this medication due to the hematuria. At this time, we were asked to see him in order to help with the atrial fibrillation and rate control and also to anticipate further care of his atrial fibrillation and flutter. PAST MEDICAL HISTORY: Significant for hypertension and gout as well as the urinary tract obstruction. He has had a history also of hydronephrosis. He has also had some right orchiectomy performed due to undescended testicle. ALLERGIES: NONE. MEDICATIONS: At this time include Rocephin, he has been placed on IV diltiazem due to the rapid ventricular response to the atrial fibrillation and flutter. He is also on Pepcid, digoxin. He has been given one dose of digoxin at 0.5 mg and he has also been started back on p.o. digoxin as well as p.o. diltiazem, which will start tomorrow and we will discontinue the IV diltiazem, if the rate is under control. He is also taking Avodart, Neurontin, Toprol-XL 25 mg q.a.m., tamsulosin 0.4 mg daily as well as other p.r.n. medications. ALLERGIES: NONE. SOCIAL HISTORY: Please refer to the notes already dictated by nurse practitionerRahel. FAMILY HISTORY: Please refer to the notes already dictated by nurse practitionerRahel. REVIEW OF SYSTEMS: Please refer to the notes already dictated by nurse Rahel larry. LABORATORY DATA: Showed a hemoglobin of 16 with a WBC of 15.4, and platelet count of 222,000. His potassium was 4.7, BUN was 25 with a creatinine of 1.35 and blood sugar of 139. PHYSICAL EXAMINATION: GENERAL: Reveals a well-developed, well-nourished gentleman, who is in no acute distress at this time. He is alert and oriented. VITAL SIGNS: Show a temperature of 98.1, O2 saturations 96%. I do not see most recent blood pressure at this time. We will continue to monitor that very carefully. It had been stable earlier today and still systolic pressure is now in the 120s. The heart rate is in the 150 range. It dips down to anywhere between 120-160 actually. HEENT: Unremarkable. CARDIOVASCULAR: Carotid pulses are present without bruits. CHEST: Clear to auscultation. CARDIOVASCULAR: Reveals a tachycardia, which appears to be somewhat regular at this time, but it is very tachycardic. I did not hear any gross murmurs. ABDOMEN: Shows obesity. EXTREMITIES: No clubbing or cyanosis. He had minimal ankle edema. Pedal pulses are present. NEUROLOGICAL: He appears to be fully intact. IMAGING: EKG shows what appears to be an atrial flutter at times, but no significant EKG changes to indicate ischemia. IMPRESSION: 1. Atrial fibrillation flutter with rapid ventricular response on close evaluation of the EKG and then after using carotid massage, it appears that he has underlying atrial flutter. He was started on IV diltiazem. He has been given one dose of digoxin. He will also be started back on his beta blockers, if the blood pressure tolerates in order to control the heart rate. He may need to undergo a transesophageal echocardiogram to rule out evidence of intracardiac thrombi or masses or left atrial appendage thrombus and then undergo an early cardioversion of what appears to be atrial flutter back to a sinus rhythm and then be hopefully maintained on medical management until he can have an electrophysiological evaluation and possible ablation of the atrial flutter as atrial flutter is very difficult to control with medical management. If he is having atrial fibrillation, we will need to control the heart rate and then as soon as he is able to go back on oral anticoagulation, this would be advised for at least 4-6 weeks and then he could possibly undergo electrical cardioversion of the atrial fibrillation. He may also undergo an early transesophageal cardiogram, if there is no evidence of intracardiac thrombi or masses. We may consider also an early cardioversion, atrial fibrillation due to the rapid ventricular response. It is difficult to control. Otherwise, he may suffer the consequences of having further decrease in his left ventricular function, which was mildly compromised on the last echocardiogram. If he continues to have tachycardia, he certainly could develop tachycardia-induced cardiomyopathy and further worsening of his congestive heart failure symptoms and recently he has been complaining of increasing shortness of breath. 2. History of transurethral resection of the prostate today. He apparently did very well with the procedure. He still continues to have hematuria, which is not unexpected at this time. We will continue to monitor this. As far as his other medical problems, he will be dealt with by the primary care service. Further care of the patient will be with Dr. Yang when he visits with the patient tomorrow. I will keep the patient n.p.o. and will order a transesophageal echocardiogram with possible cardioversion, but this will be based on Dr. Yang's final decision when he sees the patient tomorrow. Job ID: [id number]
[2019-04-15] MEDS: Sodium Chloride 0.9% 1,000 ML IV SCH ×3 (06:46→20:41)
[2019-04-15 07:06] LABS: #Lymphocytes 0.8 thou/uL (1.20-3.40); #Monocytes 0.6 thou/uL (0.11-0.59); #Neutrophils 14.2 thou/uL (1.40-6.50); %Basophils 0.1 % (0.0-1.0); %Eosinophils 0.1 % (0.0-10.0); %Lymphocytes 4.8 % (21.0-51.0); %Monocytes 3.8 % (0.0-10.0); %Neutrophils 91.2 % (42.0-75.0); Mean Corpuscular Hemoglobin 28.2 pg (27.0-31.0); Mean Corpuscular Volume 85.4 fL (78.0-98.0); Mean Platelet Volume 7.7 fL (7.4-10.4); Platelet Count 229 thou/uL (130-400); RBC Distribution Width 13.4 % (11.5-14.5); Red Blood Cell (RBC) Count 5.32 mill/uL (4.70-6.10); White Blood Cell (WBC) Count 15.6 thou/uL (4.8-10.8)
[2019-04-15 07:22] LABS: Anion Gap 15 mmol/L (10-20); BUN (Urea Nitrogen) 25 mg/dL (8.4-25.7); Calc. Creatinine Clearance 97 mL/min (70-130); Carbon Dioxide 19 mmol/L (22-29); Chloride 111 mmol/L (98-107); Estimated GFR-MDRD 62; Glucose 143 mg/dL (70-105); Potassium 4.6 mmol/L (3.5-5.1); Sodium 140 mmol/L (136-145)
[2019-04-15] MEDS: Docusate 100 MG CAP PO SCH ×2 (08:32→20:43)
[2019-04-15] MEDS: Digoxin 0.25 MG TAB PO SCH (08:32)
[2019-04-15] MEDS: Dutasteride 0.5 MG CAP PO SCH (08:33)
[2019-04-15] MEDS: Gabapentin 100 MG CAP PO SCH ×2 (08:33→20:44)
[2019-04-15] MEDS: Tamsulosin HCl 0.4 MG CAP PO SCH (08:34)
[2019-04-15] MEDS: Famotidine/PF 20 mg/2ml Vial SLOW IVP SCH ×2 (08:43→20:43)
[2019-04-15] MEDS ORDERED: Tamsulosin HCl 0.4 MG CAP PO SCH (09:00)
--- NOTE | 2019-04-15 09:22 | PRG ---
DATE OF SERVICE: 04/15/2019 SUBJECTIVE: The patient without complaints. Cardiology is concerning cardioversion versus medical observation with rate control. OBJECTIVE: VITAL SIGNS: Stable. He is afebrile. Heart rate currently is 114 to 115 on Cardizem. ABDOMEN: Soft, nontender, and nondistended. LABORATORY DATA: CBI was held this morning with pink-tinged ayde urine. Rolle catheter removed at bedside for voiding trial. White count is 15, hemoglobin stable at 15, and platelet 229. Creatinine 1.2. IMPRESSION AND PLAN: 1. Mr. Sweeney is a 53-year-old male with history of benign prostatic hyperplasia, urinary retention, prior history of gross hematuria due to significant PVR over 2 L, postop day #1 status post transurethral resection of the prostate. Voiding trial in progress. 2. Atrial fibrillation with rapid ventricular response. Cardiology following. Discussed with Dr. Yang. Plan medical management as the patient cannot be anticoagulated due to the recent transurethral resection of the prostate. Job ID: [id number] MTDD
[2019-04-15] MEDS: cefTRIAXone\\ROCEPHIN 1 GM in Sodium Chloride 0.9% 100 ML IVPB SCH (14:23)
--- NOTE | 2019-04-15 16:11 | PRG ---
DATE OF SERVICE: SUBJECTIVE: Mr. Sweeney is doing well. No current complaints. He is on low-dose IV Cardizem. His p.o. Cardizem was restarted last evening. OBJECTIVE: VITAL SIGNS: Blood pressure 137/95, pulse 80, and temperature, afebrile. LUNGS: Clear to auscultation. HEART: ABDOMEN: Soft, nontender, and nondistended. EXTREMITIES: No edema. PERTINENT LABORATORY DATA: Hemoglobin 15.0 and creatinine 1.2. IMPRESSION: Atrial flutter/coarse atrial fibrillation. RECOMMENDATIONS: At this point, I would recommend continue with rate control. Do not recommend cardioversion. He has been off anticoagulation therapy for several months. I do not feel comfortable proceeding with cardioversion without being able to use anticoagulation therapy. I have discussed the case with Dr. Caitlyn Patel, anticoagulation therapy is not recommended for 3 to 4 weeks. There was concern for atrial stunning, which can predispose him to stroke. At this point, continue rate control. Restart the diltiazem at 360 every morning. We will increase his metoprolol Job ID: [id number]
[2019-04-15] MEDS: hydrALAZINE 20 MG/ML VIAL SLOW IVP PRN (23:17)
[2019-04-16] MEDS ORDERED: Sodium Chloride 0.9% 1,000 ML IV SCH (06:15)
[2019-04-16] MEDS: hydrALAZINE 20 MG/ML VIAL SLOW IVP PRN (06:42)
--- NOTE | 2019-04-16 08:09 | PRG ---
DATE OF SERVICE: 04/16/2019 SUBJECTIVE: The patient without complaints. Denies suprapubic pain or sensation of incomplete void. He did have one episode of sensation of incomplete void, in which he was scanned overnight, at 4 in the morning, with PVR 484 mL. He has voided subsequently 300 mL of clear yellow urine. OBJECTIVE: VITAL SIGNS: Stable. He is afebrile. He is off his Cardizem drip, currently on Cardizem p.o. Blood pressure 119/115, heart rate variable in the 90s and highest 123 yesterday. His previous PVR yesterday while we monitored him was 381, 284. He has been voiding with subjectively improved increased urinary caliber. ABDOMEN: Soft, nontender, and nondistended. I did place an 18-[place]izen [place] coude Rolle catheter at bedside, which went in uneventfully with 500 mL of clear yellow urine obtained for true postvoid residual. IMPRESSION AND PLAN: Mr. Sweeney is a 53-year-old male with history of significant urinary retention, presented with 2.5 L of postvoid residual, gross hematuria. Postop day #2, status post TURP. He is to continue his benign prostatic hyperplasia medications. plan to discharge the patient with an indwelling Rolle catheter and repeat voiding trial in the office next week. He can be discharged if it is okay with Cardiology this afternoon. Currently on Cardizem p.o. May need further blood pressure medications as he was hypertensive last night per nursing staff. Disposition pending Cardiology assessment today. Cardiology records reviewed, plan to stay in-house until rate-controlled hypertension improved. He will be discharged with indwelling Rolle catheter, to gravity. Discharge Rx provided. Dr. Tse covering me this weekend, will discharge patient when cleared by cardiology with follow-up appointment next week. Patient is to call next week to confirm his appointment time tentatively for now for April 23Friday at 8 AM for a voiding trial Job ID: [id number] [facility]
[2019-04-16 08:32] LABS: Hemoglobin 15.2 g/dL (14.0-18.0); Mean Corpuscular HGB CONC 32.7 g/dL (32.0-36.0); Mean Corpuscular Hemoglobin 27.6 pg (27.0-31.0); Mean Corpuscular Volume 84.4 fL (78.0-98.0); Mean Platelet Volume 7.9 fL (7.4-10.4); Platelet Count 217 thou/uL (130-400); RBC Distribution Width 13.7 % (11.5-14.5); Red Blood Cell (RBC) Count 5.53 mill/uL (4.70-6.10); White Blood Cell (WBC) Count 14.3 thou/uL (4.8-10.8)
[2019-04-16] MEDS: Dutasteride 0.5 MG CAP PO SCH (09:11)
[2019-04-16] MEDS: Digoxin 0.25 MG TAB PO SCH (09:11)
[2019-04-16] MEDS: Gabapentin 100 MG CAP PO SCH (09:11)
[2019-04-16] MEDS: Docusate 100 MG CAP PO SCH (09:11)
[2019-04-16] MEDS: Tamsulosin HCl 0.4 MG CAP PO SCH (09:11)
[2019-04-16] MEDS: Famotidine/PF 20 mg/2ml Vial SLOW IVP SCH (09:12)
[2019-04-16 11:04] VITALS: TEMP 97.5
--- NOTE | 2019-04-16 12:20 | PRG ---
DATE OF SERVICE: 04/16/2019 SUBJECTIVE: Mr. Sweeney is doing well. No current complaints. Heart rate is hovering in the 90s. He was on IV Cardizem. This has been discontinued. OBJECTIVE: VITAL SIGNS: Heart rate 104, blood pressure 139/87, and temperature afebrile. LUNGS: Clear to auscultation. HEART: Irregularly irregular. ABDOMEN: Soft, nontender, and nondistended. EXTREMITIES: No edema. IMPRESSION: 1. Atrial fibrillation. 2. Hematuria. RECOMMENDATIONS: Plan is to continue with rate control. I have increased his metoprolol to 50 mg one p.o. b.i.d. We will also get a Cardizem dose at noon. I do not feel comfortable proceeding with cardioversion unless it is necessary and if he fails rate control, I am not able to anticoagulate the patient given continued hematuria. Once the patient is rate controlled, it will be okay from my standpoint to discharge home with close outpatient followup. Job ID: [id number]
[2019-04-16] MEDS: cefTRIAXone\\ROCEPHIN 1 GM in Sodium Chloride 0.9% 100 ML IVPB SCH (13:01)
--- NOTE | 2019-04-17 02:36 | DIS ---
DATE OF ADMISSION: 04/14/2019 DATE OF DISCHARGE: 04/16/2019 DISPOSITION: To home with self-care. DISCHARGE MEDICATIONS: The patient is to resume his medication. In addition, 1. There is a change in his Cardizem, increased to 360 mg [address] Yang. 2. Metoprolol 50 mg 1 p.o. b.i.d., increased from previous dose. He is to resume his previous medications including; 1. Digoxin. 2. Flomax. 3. Avodart. 4. Colace p.r.n. In addition, Macrobid 100 mg 1 p.o. b.i.d. for 7 days sent to patient's pharmacy. BRIEF HOSPITAL COURSE: Mr. Sweeney is a 53-year-old male with history of BPH, who presented to my office with 2.5 L of postvoid residual and gross hematuria. He underwent transurethral resection of prostate. Yesterday, his postvoid residual was monitored, which demonstrated PVR of approximately 250-300 cc. This morning, his PVR was about 450. Therefore, I did replace a Rolle catheter, a 16-[place] coude, which passed without significant issues and 500 cc of clear yellow urine was obtained. As he has PVR of concern, I informed him that it would be prudent to send him out with an indwelling Rolle catheter and repeat a voiding trial next week. I also discussed with the patient that due to presenting significant PVR, he may continue to not empty near complete. However, we are waiting for an acceptable PVR so that we may transition him out of his Rolle catheter. The patient agrees to go home with a Rolle catheter uneventfully. He prefers gravity bag instead of leg bag. Disposition is to home, follow up next Friday at 8 a.m. for Rolle catheter removal, voiding trial. Prescription sent to his pharmacy at [facility] and is informed to come back or call if significant gross hematuria, hypertension, headache, fever. CONDITION: Stable. INPATIENT CONSULT: Dr. Yang: Obtained due to rapid ventricular rate, rate controlled with Cardizem IV, then subsequently transitioned to p.o. He has followup with me next Friday, I spoke with Dr. Yang. The patient cleared to be discharged. Follow up with Cardiology in 1-2 weeks. Job ID: [id number]
== END 2019-04-16 16:39 | disposition home or self-care (01) | DRG 713 ==
LOC: SDC 07:03 → IMCU/EMU 11:47
PROVIDERS: ADMIT Urology; ATTEND Urology
PROC: 0VT08ZZ Resection of Prostate, Via Natural or Artificial Opening Endoscopic (ICD-10-PCS; principal; 2019-04-14)
PROC: 0T2BX0Z Change Drainage Device in Bladder, External Approach (ICD-10-PCS; 2019-04-15)
DX: N40.1 Benign prostatic hyperplasia with lower urinary tract symptoms (principal); I50.32 Chronic diastolic (congestive) heart failure; R33.8 Other retention of urine; I48.91 Unspecified atrial fibrillation; I11.0 Hypertensive heart disease with heart failure; K21.9 Gastro-esophageal reflux disease without esophagitis; F10.11 Alcohol abuse, in remission; R31.0 Gross hematuria
CPT/HCPCS: 36415; 80048; 85025; 85027; 86850; 86900; 86901; 88305; 90471; 90732; G0009; J0360; J0696; J1160; J1956; J3010; J3370; J3490; S0028

== ENCOUNTER 2019-06-16 14:54 | Inpatient (IN) | payer OTHER ==
[2019-06-16] MEDS ORDERED: Diltiazem 125 MG/25 ML ONE ×2 (15:47→16:10)
[2019-06-16] MEDS ORDERED: Acetaminophen 325 MG TAB PO PRN (17:27)
[2019-06-16] MEDS ORDERED: Diltiazem 125 MG in Sodium Chloride 0.9% 100 ML IVPB SCH (17:45)
--- NOTE | 2019-06-16 19:02 | HP ---
CHIEF COMPLAINT: Shortness of breath. HISTORY OF PRESENT ILLNESS: This patient is a 53-year-old male, who has a history of chronic atrial fibrillation with rapid ventricular rate. Apparently even at baseline, he followed by Dr. Yang, and apparently, there was plan to perform cardioversion. The patient recently had a TURP by Dr. Patel, and had to be off anticoagulation for that procedure. He is now back on it for his second week. He needs to be on it for a month before the cardioversion can occur. The patient reports that on Friday, one week ago, he started experiencing some dyspnea on exertion. He thought he was catching a cold, but his symptoms progressed, and when he got to the point, he could not walk from one room to another without feeling significant shortness of breath. He realized he needed to come in for evaluation. He does have a cough, but it is nonproductive. He has no fevers or chills. He has very minimal chest pain. States it is more related to the palpitations. Today, the patient initially presented to Dr. Mike's office. He had symptoms like this before, and she referred him to the [facility]. There, he was found to be in atrial fibrillation with RVR. He was given Lasix and a dose of IV Cardizem and transferred here. Here, he has been on a Cardizem drip, and his heart rate has improved to 110 range; however, he subsequently got up to go the bathroom and now he is back. His heart rate is up again. Again, the patient indicates that previously this was the best heart rate that could be achieved for him. REVIEW OF SYSTEMS: The patient has had some lower extremity edema and says he tends to have a fair amount of abdominal distention, which has come on around the same time of his shortness of breath. All other systems reviewed, all pertinent positives noted in history of present illness. PAST MEDICAL HISTORY: Notable for atrial fibrillation, on chronic anticoagulation; chronic diastolic heart failure, diagnosed in November of 2018. The echo report from that visit indicates that poor windows and a mildly reduced ejection fraction, but further details were not elucidated. He has a history of BPH with retention, hypertension, obesity, GERD. PAST SURGICAL HISTORY: Inguinal hernia repair, orchectomy, and recently TURP in April. FAMILY HISTORY: Both parents had significant heart disease. SOCIAL HISTORY: The patient previously drank at least a 12-pack of beer per day, but he quit about 7 months ago. He does dip snuff. At this point, denies drugs. He is full code, and his sister would be his surrogate decision maker and her name is Lindsey De Luna. ALLERGIES: NONE. CURRENT MEDICATIONS: 1. Eliquis 5 mg b.i.d. 2. Gabapentin 100 mg t.i.d. 3. Metoprolol 75 mg b.i.d. 4. Tamsulosin 0.4 mg daily. 5. Avodart 0.5 mg daily. PHYSICAL EXAMINATION: VITAL SIGNS: Blood pressure 137/109, pulse 112, respirations 24, O2 saturation 96% on 2 L. GENERAL APPEARANCE: Age-appropriate male, in no distress. He is awake and alert, pleasant, cooperative. He is a bit tachypneic after going to the bathroom. HEENT: PERRL. No OP lesions. NECK: Supple and symmetric without lymphadenopathy, JVD, or bruits. HEART: Irregular, tachycardic with no murmurs. LUNGS: Clear bilaterally. No wheezes or rales. ABDOMEN: Soft, nontender, slightly distended. No masses. No organomegaly. EXTREMITIES: Really do not have significant edema, maybe trace at best. Pulses are palpable. PSYCH: Normal affect and behavior. NEUROLOGIC: No focal deficits. Moving all extremities spontaneously. LABORATORY DATA: From the [facility] reviewed. White count is 12.5, hemoglobin 16.7, platelets 243. INR 1.2 and PTT 9.1. Chemistries, CO2 is 19, BUN 35, creatinine 1.81, GFR is 39, which is below his baseline which typically runs 50s to 60s. Glucose 121, AST 62, ALT 127. BNP is 1093. Digoxin level is less than 0.15. Chest x-ray shows under penetration, it is not officially read at this point. IMPRESSION AND PLAN: 1. Acute hypoxic respiratory failure, likely secondary to heart failure in atrial fibrillation and oxygen as needed. 2. Congestive heart failure, unclear at this point whether this is systolic or diastolic. We will likely need to attempt again to repeat an echo on him. He does have a history of diastolic heart failure, but the prior echo was poor quality. We will go ahead and give him another dose of Lasix. He says he has been voiding well since the first one. The atrial fibrillation maybe contributory as well. 3. Atrial fibrillation with rapid ventricular response. He is on beta blockers. He is on Eliquis. He is on a Cardizem drip. We will continue with the diltiazem drip. We are going to go ahead and bump him up to 10 mg/hour. We will consult Cardiology. The plan is for him to get cardioversion eventually once he has been on the anticoagulation long enough. 4. Elevated liver enzymes. These are new for the patient. Suspect he has some passive liver congestion. I do believe he has fully discontinued the alcohol consumption. 5. Acute renal insufficiency. The patient has chronic kidney disease, stage 3, but is now at 39 below his baseline of 50s to 60s, likely due to failure. We will continue to monitor as he is diuresed and gets better rate control. 6. Recent transurethral resection of prostate, doing well, has been voiding well since then. 7. Obesity. 8. Prior history of alcohol abuse with 7 months of abstinence. Job ID: [id number]
[2019-06-16] MEDS ORDERED: Furosemide 20 MG/2 ML VIAL SLOW IVP SCH (19:45)
[2019-06-16 19:57] VITALS: BMI 35.1
[2019-06-16] MEDS: Metoprolol Tartrate 50 MG TAB PO SCH (20:19)
[2019-06-16] MEDS: Gabapentin 100 MG CAP PO SCH (20:19)
[2019-06-16] MEDS: Apixaban 5 MG TAB PO SCH (20:20)
[2019-06-16 20:39] LABS: Troponin I 0.036 ng/mL (< 0.028)
[2019-06-16 22:58] LABS: Troponin I 0.057 ng/mL (< 0.028)
[2019-06-17 04:20] LABS: #Basophils 0.1 thou/uL (0.0-0.2); #Eosinphils 0.2 thou/uL (0.0-0.7); #Lymphocytes 2.2 thou/uL (1.20-3.40); #Neutrophils 7.4 thou/uL (1.40-6.50); %Basophils 0.6 % (0.0-1.0); %Lymphocytes 20.3 % (21.0-51.0); %Monocytes 8.9 % (0.0-10.0); %Neutrophils 68.2 % (42.0-75.0); Hemoglobin 15.2 g/dL (14.0-18.0); Mean Corpuscular HGB CONC 32.8 g/dL (32.0-36.0); Mean Corpuscular Hemoglobin 27.1 pg (27.0-31.0); Mean Corpuscular Volume 82.6 fL (78.0-98.0); Mean Platelet Volume 9.7 fL (7.4-10.4); Platelet Count 208 thou/uL (130-400); RBC Distribution Width 13.2 % (11.5-14.5); Red Blood Cell (RBC) Count 5.63 mill/uL (4.70-6.10); White Blood Cell (WBC) Count 10.9 thou/uL (4.8-10.8)
[2019-06-17 04:44] LABS: Anion Gap 16 mmol/L (10-20); BUN (Urea Nitrogen) 38 mg/dL (8.4-25.7); Calc. Creatinine Clearance 69 mL/min (70-130); Calcium 8.3 mg/dL (7.8-10.44); Carbon Dioxide 21 mmol/L (22-29); Chloride 107 mmol/L (98-107); Estimated GFR-MDRD 42; Glucose 118 mg/dL (70-105); Sodium 140 mmol/L (136-145)
[2019-06-17] MEDS ORDERED: Furosemide 40 MG/4 ML VIAL SLOW IVP SCH ×2 (08:45→15:15)
--- NOTE | 2019-06-17 09:22 | CON ---
DATE OF CONSULTATION: REASON FOR CONSULTATION: Atrial fibrillation with rapid ventricular response. HISTORY OF PRESENT ILLNESS: Mr. Sweeney is a very pleasant 53-year-old gentleman, who was seen and evaluated in the past. He has a history of atrial fibrillation. He previously was on anticoagulation therapy but was discontinued due to recent TURP. He did Eliquis last week. He continues to have difficulty with high heart rate and shortness of breath. He then proceeded to the emergency room with the above. PAST MEDICAL HISTORY: Atrial fibrillation, hypertension, diastolic dysfunction, UTI, gout. HOME MEDICATIONS: Include: 1. Metoprolol. 2. Diltiazem. 3. Tamsulosin. 4. Gabapentin. 5. Metoprolol. 6. Olmesartan. 7. Allopurinol. 8. Lasix. 9. Eliquis. 10. Digoxin. PAST SURGICAL HISTORY: Recent TURP, hernia repair, orchiectomy. FAMILY HISTORY: Negative for CAD. SOCIAL HISTORY: He continues to dip tobacco. No alcohol use. ALLERGIES: NONE. REVIEW OF SYSTEMS: A 10-point review of systems is reviewed as above, otherwise negative. PHYSICAL EXAMINATION: GENERAL: Patient is a pleasant gentleman who is in no acute distress. The patient appears their stated age. VITAL SIGNS: Blood pressure 144/105, pulse 82, temperature afebrile. He is currently on IV Cardizem 12.5 mg per hour. NEUROLOGIC: The patient is alert and oriented x3 with no focal neurologic deficits. HEENT: Sclerae without icterus. Mouth has moist mucous membranes with normal pallor. NECK: No JVD. Carotid upstroke brisk. No bruits bilaterally. LUNGS: Crackles and wheezing noted bilaterally. BACK: No scoliosis or kyphosis. CARDIAC: Irregularly irregular. ABDOMEN: Soft, nontender, nondistended. No peritoneal signs present. No hepatosplenomegaly. No abnormal striae. EXTREMITIES: 2+ femoral and 2+ dorsalis pedis pulses. No cyanosis, clubbing, or edema. SKIN: No gross abnormalities. PERTINENT LABORATORY DATA: Hemoglobin 15.2, hematocrit 46.5, creatinine 1.7. Baseline creatinine of 1.2 on 04/15/2009. IMPRESSION: 1. Atrial fibrillation with rapid ventricular response. 2. Diastolic heart failure. 3. Tobacco abuse. RECOMMENDATIONS: 1. Lasix IV 40 mg x1. 2. DuoNeb x1 and reassess. 3. Continue IV Cardizem and add p.o. Cardizem at 80 mg q.8 hours in attempts to wean IV Cardizem. 4. Add flecainide 50 mg p.o. b.i.d. PLAN: Plan is to proceed with a NORMA cardioversion. Discussed in full detail with Mr. Sweeney. Risks included, not limited to the following: Damage to teeth, mouth, or back of throat, damage to esophagus, requiring emergency surgery as well as reaction to medication. I also discussed risks of cardioversion including burning of skin, need for repeat cardioversion on failed cardioversion. Also risk of stroke. All questions were answered. Plan is to proceed with NORMA cardioversion tomorrow as long as his lung status improves. Continue Eliquis at 5 mg p.o. b.i.d. Job ID: [id number]
[2019-06-17] MEDS: Apixaban 5 MG TAB PO SCH ×2 (10:20→21:28)
[2019-06-17] MEDS: Gabapentin 100 MG CAP PO SCH ×3 (10:20→21:29)
[2019-06-17] MEDS: Metoprolol Tartrate 50 MG TAB PO SCH ×2 (10:20→21:29)
[2019-06-17] MEDS: Dutasteride 0.5 MG CAP PO SCH (10:20)
[2019-06-17] MEDS: Tamsulosin HCl 0.4 MG CAP PO SCH (10:20)
--- NOTE | 2019-06-17 10:47 | PDOC.HOSPP ---
- Subjective Encounter Date: 06/17/19 Encounter Time: 10:44 Subjective: Doing ok. Still has significant SUAREZ, but ok at rest. - Objective Vital Signs & Weight: Vital Signs (12 hours) Temp Pulse Ox 06/17/19 04:12 97 06/17/19 03:33 97.0 F L 06/17/19 00:08 97 06/16/19 23:15 97.4 F L Weight Weight 216 lb 6.4 oz Most Recent Monitor Data Heart Rate from ECG 82 NIBP 144/105 NIBP BP-Mean 118 Respiration from ECG 22 I&O: 06/16/19 06/17/19 06/18/19 06:59 06:59 06:59 Intake Total 1103 Output Total 700 Balance 403 Result Diagrams: 06/17/19 03:54 06/17/19 03:54 Additional Labs: Accuchecks 06/16/19 20:20 POC Glucose 159 H Hospitalist ROS - Medication Medications: Active Medications Generic Name Dose Route Start Last Admin Trade Name Freq PRN Reason Stop Dose Admin Apixaban 5 mg 06/16/19 21:00 06/17/19 10:20 Eliquis PO 5 mg BID GIA Administration Diltiazem HCl 80 mg 06/17/19 09:00 06/17/19 10:29 Cardizem PO 80 mg Q8H GIA Administration Dutasteride 0.5 mg 06/17/19 09:00 06/17/19 10:20 Avodart PO 0.5 mg DAILY GIA Administration Furosemide 40 mg 06/17/19 08:45 06/17/19 10:25 Lasix SLOW IVP 06/17/19 11:00 40 mg NOW GIA Administration Gabapentin 100 mg 06/16/19 21:00 06/17/19 10:20 Neurontin PO 100 mg TID GIA Administration Diltiazem HCl 125 mg/ Sodium 125 mls @ 10 mls/hr 06/16/19 17:45 06/17/19 04: 12 Chloride IVPB 125 mls INF GIA Administration Protocol 10 MG/HR Metoprolol Tartrate 75 mg 06/16/19 21:00 06/17/19 10:20 Lopressor PO 75 mg BID GIA Administration Sodium Chloride 10 ml 06/17/19 09:00 06/17/19 10:21 Flush - Normal Saline IVF 10 ml Q12HR GIA Administration Tamsulosin HCl 0.4 mg 06/17/19 09:00 06/17/19 10:20 Flomax PO 0.4 mg DAILY GIA Administration - Exam General Appearance: NAD, awake alert Heart: no murmur, no gallops, no rubs, irregular Heart - other findings: Tachycardia Respiratory: no rales, no ronchi Respiratory - other findings: Diminished. Gastrointestinal: soft, non-tender, distended (mildly.) Extremities: no cyanosis, no clubbing, no edema Musculoskeletal: normal tone, normal strength, no muscle wasting Psychiatric: normal affect, normal behavior, A&O x 3 Hosp A/P (1) Atrial fibrillation with RVR Code(s): I48.91 - UNSPECIFIED ATRIAL FIBRILLATION Status: Acute (2) Pulmonary edema Code(s): J81.1 - CHRONIC PULMONARY EDEMA Status: Acute Qualifiers: Qualified Code(s): J81.0 - Acute pulmonary edema (3) Gout Code(s): M10.9 - GOUT, UNSPECIFIED Status: Chronic (4) HTN (hypertension) Code(s): I10 - ESSENTIAL (PRIMARY) HYPERTENSION Status: Chronic Qualifiers: Hypertension type: essential hypertension Qualified Code(s): I10 - Essential (primary) hypertension (5) Tobacco abuse Code(s): Z72.0 - TOBACCO USE Status: Chronic Plan: Dipping. Never a smoker. - Plan Doing a little better, but still has SUAREZ. Additional dose of lasix given Neb pending. Continue to diurese. Dr. Yang planning NORMA and ECV tomorrow if his resp status will permit. The snuff is not helping the HR, but stopping it may be worse in the short term. Continue Eliquis. BPH stable post TURP.
--- NOTE | 2019-06-17 12:56 | CON ---
DATE OF CONSULTATION: HISTORY OF PRESENT ILLNESS: Mr. Sweeney is a 53-year-old male, who presented to the hospital with rapid atrial fibrillation. He said this happened at the beginning of the year and he was medically cardioverted. He says he feels much better than he felt when his heart was racing yesterday. He is in atrial fibrillation with a rate in the 70s now, lying flat in bed, denying shortness of breath. PAST MEDICAL HISTORY: Remarkable for obesity. He has never had a sleep apnea workup. Unable to access past medical history records because of a computer malfunction at this time. FAMILY HISTORY: Negative for lung disease in early age. REVIEW OF SYSTEMS: Otherwise negative. He is tentatively on the schedule for cardioversion tomorrow. PHYSICAL EXAMINATION: GENERAL: He is in no distress. VITAL SIGNS: Heart rate is 97. He is in atrial fibrillation with a rate in the 70s when I evaluated, oximetry is 97% on room air, blood pressure 125/91. HEAD AND NECK: Unremarkable. LUNGS: Clear. HEART: Irregularly irregular. ABDOMEN: Soft and nontender. EXTREMITIES: With stasis changes. NEURO: Nonfocal. IMPRESSION: Pulmonary edema secondary to a rapid atrial fibrillation. He is tentatively on the schedule for cardioversion. We will follow while he is in the intermediate care unit. Job ID: [id number]
[2019-06-17] MEDS: Propafenone HCl 150 MG TAB PO SCH ×2 (15:03→21:29)
[2019-06-18] MEDS: Propafenone HCl 150 MG TAB PO SCH (06:17)
--- NOTE | 2019-06-18 08:16 | PRG ---
DATE OF SERVICE: 06/18/2019 SUBJECTIVE: Mr. Sweeney is on the schedule for transesophageal echo and cardioversion today. OBJECTIVE: VITAL SIGNS: His heart rate is in the 60s to 70s this morning. He is still in atrial fibrillation. Blood pressure 119/89, respiratory rate in the teens. LUNGS: Clear. IMPRESSION: Atrial fibrillation for cardioversion. I suspect he will be stable for discharge if the cardioversion is successful tomorrow. We will follow from a distance. Job ID: [id number]
[2019-06-18] MEDS: Dutasteride 0.5 MG CAP PO SCH (09:38)
[2019-06-18] MEDS: Apixaban 5 MG TAB PO SCH ×2 (09:38→21:00)
[2019-06-18] MEDS: Gabapentin 100 MG CAP PO SCH ×3 (09:39→21:00)
[2019-06-18] MEDS: Metoprolol Tartrate 50 MG TAB PO SCH (09:40)
[2019-06-18] MEDS: Tamsulosin HCl 0.4 MG CAP PO SCH (09:40)
[2019-06-18 10:46] LABS: Anion Gap 15 mmol/L (10-20); BUN (Urea Nitrogen) 41 mg/dL (8.4-25.7); Calc. Creatinine Clearance 54 mL/min (70-130); Calcium 8.9 mg/dL (7.8-10.44); Carbon Dioxide 26 mmol/L (22-29); Chloride 105 mmol/L (98-107); Estimated GFR-MDRD 32; Glucose 142 mg/dL (70-105); Potassium 4.6 mmol/L (3.5-5.1); Sodium 141 mmol/L (136-145)
--- NOTE | 2019-06-18 10:47 | PDOC.HOSPP ---
- Subjective Subjective: Doing a little better. Still has SUAREZ. Neb did seem to help. - Objective Vital Signs & Weight: Vital Signs (12 hours) Temp Pulse Ox 06/18/19 03:42 97.2 F L 06/18/19 00:16 98 06/18/19 00:00 97.2 F L Weight Weight 215 lb 5 oz Most Recent Monitor Data Heart Rate from ECG 62 NIBP 119/89 NIBP BP-Mean 99 Respiration from ECG 17 SpO2 92 I&O: 06/17/19 06/18/19 06/19/19 06:59 06:59 06:59 Intake Total 1103 1560 Output Total 700 2925 Balance 403 -1365 Result Diagrams: 06/17/19 03:54 06/17/19 03:54 Additional Labs: Accuchecks 06/17/19 06/17/19 20:06 10:52 POC Glucose 118 H 98 Hospitalist ROS - Medication Medications: Active Medications Generic Name Dose Route Start Last Admin Trade Name Freq PRN Reason Stop Dose Admin Apixaban 5 mg 06/16/19 21:00 06/18/19 09:38 Eliquis PO 5 mg BID GIA Administration Diltiazem HCl 60 mg 06/18/19 10:00 06/18/19 09:45 Cardizem PO 60 mg Q8H GIA Administration Dutasteride 0.5 mg 06/17/19 09:00 06/18/19 09:38 Avodart PO 0.5 mg DAILY GIA Administration Gabapentin 100 mg 06/16/19 21:00 06/18/19 09:39 Neurontin PO 100 mg TID GIA Administration Sodium Chloride 10 ml 06/17/19 09:00 06/18/19 09:39 Flush - Normal Saline IVF 10 ml Q12HR GIA Administration Tamsulosin HCl 0.4 mg 06/17/19 09:00 06/18/19 09:40 Flomax PO 0.4 mg DAILY GIA Administration - Exam General Appearance: NAD, awake alert Heart: RRR, no murmur, no gallops, no rubs, normal peripheral pulses Respiratory: CTAB (Diminished), no wheezes, no rales, no ronchi Gastrointestinal: soft, non-tender, non-distended, normal bowel sounds, no palpable masses, no hepatomegaly, no splenomegaly, no bruit Extremities: no edema Skin: normal turgor Psychiatric: normal affect, normal behavior, A&O x 3 Hosp A/P (1) Atrial fibrillation with RVR Code(s): I48.91 - UNSPECIFIED ATRIAL FIBRILLATION Status: Acute (2) Pulmonary edema Code(s): J81.1 - CHRONIC PULMONARY EDEMA Status: Acute Qualifiers: Qualified Code(s): J81.0 - Acute pulmonary edema (3) Gout Code(s): M10.9 - GOUT, UNSPECIFIED Status: Chronic (4) HTN (hypertension) Code(s): I10 - ESSENTIAL (PRIMARY) HYPERTENSION Status: Chronic Qualifiers: Hypertension type: essential hypertension Qualified Code(s): I10 - Essential (primary) hypertension (5) Tobacco abuse Code(s): Z72.0 - TOBACCO USE Status: Chronic (6) Lung nodule, multiple Status: Acute (7) Acute on chronic kidney failure Code(s): N17.9 - ACUTE KIDNEY FAILURE, UNSPECIFIED; N18.9 - CHRONIC KIDNEY DISEASE, UNSPECIFIED Status: Acute (8) CKD (chronic kidney disease), stage II Code(s): N18.2 - CHRONIC KIDNEY DISEASE, STAGE 2 (MILD) Status: Acute (9) Acute respiratory failure with hypoxia Code(s): J96.01 - ACUTE RESPIRATORY FAILURE WITH HYPOXIA Status: Acute - Plan Acute hypoxic resp failure present on admission. Doing a little better, but still has SUAREZ. Continue to diurese Neb prn Discussed with Dr. Yang. Has low EF on NORMA and low flow through the left atrial appendage. Did not cardiovert. Decreased the Diltiazem, changed BB to Carvedilol. Stopped propefenone with GFR. May need Amio. Reviewed CTA chest from November. Had two pulm nodules with recommended follow up at 6 months (due now). Will get non-con CT. GFR was 70's in November and 40 now. BPH stable post TURP.
[2019-06-18] MEDS ORDERED: PROPOFOL 200 MG/20 ML VIAL ONE (11:04)
--- NOTE | 2019-06-18 13:52 | CT ---
EXAM: CT of the chest without contrast HISTORY: Shortness of breath; previous pulmonary nodules COMPARISON: 12/01/2018 TECHNIQUE: Multiple contiguous axial images were obtained in a CT the chest without contrast. Coronal and sagittal reformats were performed. FINDINGS: HEART: Normal in size without focal cardiac abnormality MEDIASTINUM: No hilar or mediastinal lymphadenopathy. Evaluation of the mediastinum is limited withou t IV contrast. LUNGS: There is a stable triangular 8 mm area of nodularity on the undersurface of the minor fissure in the right middle lobe on image 31 of 64. No other pulmonary nodules are seen. PLEURAL SPACE: Small bilateral pleural effusions. Adjacent atelectasis is seen. CHEST WALL SOFT TISSUES: Unremarkable OSSEOUS STRUCTURES: Degenerative changes in the spine. VISUALIZED SUBDIAPHRAGMATIC STRUCTURES: Unremarkable IMPRESSION: Stable right middle lobe nodule. This is along the minor fissure and may represent an intrafissural l ymph node.
--- NOTE | 2019-06-18 13:55 | PRG ---
DATE OF SERVICE: 06/18/2019 SUBJECTIVE: Mr. Sweeney's recent NORMA did suggest decrease in LVEF. LVEF was estimated at 35%. This was felt to be a new finding. He also had spontaneous echo contrast present within the left atrial appendage and was on propafenone. Given the new findings of a decrease in LVEF and the fact the patient's spontaneous echo contrast and was on propafenone, decided to not proceed with cardioversion. PLAN: Plan is the followin. Discontinue propafenone. 2. Change metoprolol tartrate to Coreg. 3. Continue Lasix. 4. Repeat echo to assess LVEF. I would recommend Eliquis for 3 weeks prior to cardioversion. The patient will also likely need amiodarone therapy 400 mg p.o. q.a.m. I did stop by Mr. Sweeney's room to discuss the above, but the patient was out for a CT scan. We will keep over the next day for continued diuresis. Job ID: [id number]
[2019-06-18] MEDS: Carvedilol 3.125 MG TAB PO SCH (16:13)
--- NOTE | 2019-06-18 16:15 | PQF ---
GIBRAN MARIEE DAVID R MD [id number] CLINICAL DOCUMENTATION IMPROVEMENT CLARIFICATION FORM: ICD-10 Updated PLEASE DO AN ADDENDUM TO THE PROGRESS NOTE WITH ANY DOCUMENTATION UPDATES OR ADDITIONS AND CARRY THROUGH TO DC SUMMARY. THANK YOU. DATE: 06/18/19 ATTN: Dr. Watts Please exercise your independent, professional judgment in responding to the clarification form. Clinical indicators are provided on the bottom of this form for your review Please check appropriate box(s): HEART FAILURE: A. ACUITY [ ] Acute [ ] Acute on Chronic [ ] Chronic B. TYPE [ ] Systolic / HFrEF [ ] Diastolic / HFpEF [ ] Acute pulmonary edema not related to heart failure [ ] Other diagnosis [ x ] Unable to determine - haven't completed the workup. In addition, please specify: Present on Admission (POA): [ ] Yes [ ] No [ ] Unable to determine For continuity of documentation, please document condition throughout progress notes and discharge summary. Thank You. CLINICAL INDICATORS - SIGNS / SYMPTOMS / LABS / RESULTS AND LOCATION IN EMR 06/17 (Stefanie): "Still has signigicant SUAREZ" "acute pulmonary edema" 06/17 (Paul): "pulmonary edema secondary to rapid atrial fibrillation" "BNP 1093 from the [facility] reviewed" per H&P(Stefanie) 06/18 (Trey): "LVEF was estimated at 35%" 06/17 (Stefanie): "Still has signigicant SUAREZ" "acute pulmonary edema" 06/17 (Paul): "pulmonary edema secondary to rapid atrial fibrillation" RISKS FACTORS / RESULTS AND LOCATION IN EMR 06/17 (Trey): "Diastolic heart failure" "CKD II" per 06/18 Dr. Watts note TREATMENTS / RESULTS AND LOCATION IN EMR Administration of BB--> Coreg 6.25mg po BID 06/18 ; metoprolol 75mg po BID 06/16- 06/18 per orders Cardiac monitoring / telemetry in ICU per 06/16 orders IV Diuretics--> Lasix 20 mg IVP 06/16; 06/17 Lasix 40mg IV 06/17 x2 per orders Cardiology Consult 06/16 orders (This form is maintained as a part of the permanent medical record) 2014 [employer]. All Rights Reserved Sofia Mejía RN, BSN, CCDS [email or web address] [phone] [facility]ALSolo
[2019-06-18] MEDS ORDERED: Carvedilol 3.125 MG TAB PO SCH (17:00)
[2019-06-19] MEDS: Tamsulosin HCl 0.4 MG CAP PO SCH (08:39)
[2019-06-19] MEDS: Carvedilol 3.125 MG TAB PO SCH (08:39)
[2019-06-19] MEDS: Dutasteride 0.5 MG CAP PO SCH (08:39)
[2019-06-19] MEDS: Gabapentin 100 MG CAP PO SCH ×3 (08:40→20:04)
[2019-06-19] MEDS: Apixaban 5 MG TAB PO SCH ×2 (08:40→20:04)
--- NOTE | 2019-06-19 12:37 | PDOC.CPN ---
- Subjective Date: 06/19/19 Time: 12:36 Interval history: No new issues. Breathing better back to normal. HR in the 70's. - Review of Systems General: denies: fever/chills, weight/appetite/sleep changes, night sweats, fatigue Respiratory: denies: cough, congestion, shortness of breath, exercise intolerance Cardiovascular: denies: chest pain, palpitation, edema, paroxysmal nocturnal dyspnea, orthopnea Gastrointestinal: denies: nausea, vomiting, diarrhea, constipation, abd pain, GI bleeding Musculoskeletal: denies: pain, tenderness, stiffness, swelling, arthritis/ arthralgias Neurological: denies: numbness, syncope, seizure, weakness - Objective Allergies/Adverse Reactions: Allergies Allergy/AdvReac Type Severity Reaction Status Date / Time No Known Allergies Allergy Verified 04/14/19 12:50 Visit Medications: Current Medications Acetaminophen (Tylenol) 650 mg PO Q4H PRN PRN Reason: Headache/Fever/Mild Pain (1-3) Albuterol/Ipratropium (Duoneb) 3 ml NEB [id number] PRN PRN Reason: SOB &/or Wheezing Apixaban (Eliquis) 5 mg PO BID [facility] Last Admin: 06/19/19 08:40 Dose: 5 mg Carvedilol (Coreg) 6.25 mg PO BID-WM [facility] Last Admin: 06/19/19 08:39 Dose: 6.25 mg Diltiazem HCl (Cardizem) 60 mg PO Q8H [facility] Last Admin: 06/19/19 08:40 Dose: 60 mg Dutasteride (Avodart) 0.5 mg PO DAILY [facility] Last Admin: 06/19/19 08:39 Dose: 0.5 mg Gabapentin (Neurontin) 100 mg PO TID [facility] Last Admin: 06/19/19 08:40 Dose: 100 mg Sodium Chloride (Flush - Normal Saline) 10 ml IVF Q12HR [facility] Last Admin: 06/19/19 08:40 Dose: 10 ml Sodium Chloride (Flush - Normal Saline) 10 ml IVF PRN PRN PRN Reason: Saline Flush Tamsulosin HCl (Flomax) 0.4 mg PO DAILY [facility] Last Admin: 06/19/19 08:39 Dose: 0.4 mg Vital Signs & Weight: Vital Signs Temp Pulse Ox 06/19/19 11:09 98 06/19/19 10:35 97.5 F L 06/19/19 08:00 96 06/19/19 07:09 97.7 F 06/19/19 03:45 97.0 F L Weight 219 lb 8 oz - Physical Exam General: alert & oriented x3 HEENT: mucus membranes moist Neck: supple neck Cardiac: regular rate and rhythm, no murmur Lungs: clear to auscultation Neuro: grossly intact Abdomen: active bowel sounds, soft, non-tender Extremities: no edema Skin: clear Musculoskeletal: no pain - Labs Result Diagrams: 06/17/19 03:54 06/18/19 10:11 Troponin/CKMB Troponin I 0.057 ng/mL (< 0.028) H 06/16/19 22:25 - Telemetry Supraventricular conduction: atrial fibrillation - Assessment/Plan Assessment/Plan: 1. Afib rate controlled 2. NEw onset CM 3. Tobacco use. PLAN: - Plan to continue amiodarone load with 400 mg PO BID for 7 days then DOWN to 200 mg daily. - Continue Eliquis. - Plan to re evaluate in [address] Yang office for possible Cardioversion. - Mild bump on creatinine, may need a little volume back. - Would hold ACEI util creatinine improves. - Would hold one more day.
--- NOTE | 2019-06-19 13:05 | PDOC.HOSPP ---
- Subjective Encounter Date: 06/19/19 Encounter Time: 12:50 Subjective: f/u for A-fib with controlled rate on Eliquis. No new complaints today. - Objective Vital Signs & Weight: Vital Signs (12 hours) Temp Pulse Ox 06/19/19 11:09 98 06/19/19 10:35 97.5 F L 06/19/19 08:00 96 06/19/19 07:09 97.7 F 06/19/19 03:45 97.0 F L Weight Weight 219 lb 8 oz Most Recent Monitor Data Heart Rate from ECG 84 NIBP 137/102 NIBP BP-Mean 113 Respiration from ECG 22 SpO2 94 I&O: 06/18/19 06/19/19 06/20/19 06:59 06:59 06:59 Intake Total 1560 2400 Output Total 2925 1150 Balance -1365 1250 Result Diagrams: 06/17/19 03:54 06/18/19 10:11 Additional Labs: Accuchecks 06/19/19 06/19/19 06/18/19 10:21 05:26 20:19 POC Glucose 122 H 105 132 H 06/18/19 06/18/19 16:36 10:35 POC Glucose 101 131 H Laboratory Tests 05/18/19 06/16/19 06/17/19 13:42 12:35 03:54 Creatinine 1.36 H 1.81 H 1.70 H EKG Reviewed by me: Yes (Tele - A-fib in 80's) Hospitalist ROS - Medication Medications: Active Medications Generic Name Dose Route Start Last Admin Trade Name Freq PRN Reason Stop Dose Admin Apixaban 5 mg 06/16/19 21:00 06/19/19 08:40 Eliquis PO 5 mg BID GIA Administration Carvedilol 6.25 mg 06/18/19 17:00 06/19/19 08:39 Coreg PO 6.25 mg BID-WM GIA Administration Diltiazem HCl 60 mg 06/18/19 10:00 06/19/19 08:40 Cardizem PO 60 mg Q8H GIA Administration Dutasteride 0.5 mg 06/17/19 09:00 06/19/19 08:39 Avodart PO 0.5 mg DAILY GIA Administration Gabapentin 100 mg 06/16/19 21:00 06/19/19 08:40 Neurontin PO 100 mg TID GIA Administration Sodium Chloride 10 ml 06/17/19 09:00 06/19/19 08:40 Flush - Normal Saline IVF 10 ml Q12HR GIA Administration Tamsulosin HCl 0.4 mg 06/17/19 09:00 06/19/19 08:39 Flomax PO 0.4 mg DAILY GIA Administration - Exam General Appearance: NAD, awake alert Eye: PERRL, anicteric sclera ENT: normocephalic atraumatic, no oropharyngeal lesions Neck: supple, symmetric, no JVD, no thyromegaly, no lymphadenopathy Heart: no murmur, no gallops, no rubs, irregular Respiratory: no wheezes, no ronchi Respiratory - other findings: diminished in bases Gastrointestinal: soft, non-tender, non-distended, normal bowel sounds, no palpable masses Extremities: no cyanosis, no clubbing, 1+ LE edema Skin: normal turgor, no lesions Neurological: cranial nerve grossly intact, no new deficit Musculoskeletal: normal tone, normal strength Psychiatric: normal affect, A&O x 3 Hosp A/P (1) Acute on chronic kidney failure Code(s): N17.9 - ACUTE KIDNEY FAILURE, UNSPECIFIED; N18.9 - CHRONIC KIDNEY DISEASE, UNSPECIFIED Status: Acute Plan: Likely iatrogenic, start low-volume IVF's, avoid nephrtoxic meds and limit contrast, repeat creatinine in am (2) Acute respiratory failure with hypoxia Code(s): J96.01 - ACUTE RESPIRATORY FAILURE WITH HYPOXIA Status: Acute Plan: Resolved (3) Atrial fibrillation with RVR Code(s): I48.91 - UNSPECIFIED ATRIAL FIBRILLATION Status: Acute Plan: Rate controlled currently, continue Coreg/Diltiazem (4) Pulmonary edema Code(s): J81.1 - CHRONIC PULMONARY EDEMA Status: Acute Qualifiers: Qualified Code(s): J81.0 - Acute pulmonary edema Plan: Resolving (5) HTN (hypertension) Code(s): I10 - ESSENTIAL (PRIMARY) HYPERTENSION Status: Chronic Qualifiers: Hypertension type: essential hypertension Qualified Code(s): I10 - Essential (primary) hypertension Plan: Labile, increase Coreg 12.5mg BID - Plan out of bed/ambulate, DVT proph w/SCDs Stable currently Increase Coreg 12.5mg BID Continue Diltiazem Continue Eliquis 5mg BID OOB/ambulate Start IV NS at 50ml/h x 1L AM lab: BMP
[2019-06-19] MEDS ORDERED: Sodium Chloride 0.9% 1,000 ML IV SCH (13:15)
[2019-06-19] MEDS ORDERED: Furosemide 40 MG/4 ML VIAL SLOW IVP SCH (15:15)
--- NOTE | 2019-06-19 15:52 | PRG ---
DATE OF SERVICE: 06/19/2019 SERVICE: Pulmonary Medicine. INTERVAL HISTORY: The patient is doing fine from respiratory standpoint. He is on room air. He denies any current chest discomfort, nausea, vomiting, fevers, or chills. Otherwise, there has been no interval change to his condition. He is not having any coughing. He is not having hemoptysis. PHYSICAL EXAMINATION: VITAL SIGNS: Afebrile, pulse 81, blood pressure 153/103, respirations 23, saturation 97%, currently on room air. GENERAL: The patient is awake and alert, in no apparent distress. LUNGS: Decent air entry. Dependent crackles are minimal. There is no prolonged expiratory phase or wheezing appreciated. HEART: Normal rate, regular. ABDOMEN: Soft, nontender, nondistended. Bowel sounds are positive. MUSCULOSKELETAL: No cyanosis or clubbing. There is 1 to 2+ pitting in the bilateral lower extremities. NEUROLOGIC: Grossly nonfocal. LABORATORY DATA: Sodium 141, creatinine gently up trending 2.17. IMAGING DATA: CT of the chest demonstrates bilateral pleural effusions, interstitial fullness around the periphery of the lung. Left atrium is generous in size. ASSESSMENT: 1. Acute hypoxic respiratory failure, resolved. 2. Atrial fibrillation with rapid ventricular rate, currently rate controlled. 3. Bilateral pleural effusions. 4. Acute heart failure. 5. Acute kidney injury on chronic kidney disease. DISCUSSION AND PLAN: The patient was started on a little IV fluids, though he is currently volume overloaded. We will give him a dose of Lasix today and tomorrow morning. I will put him on D5 water overnight to prevent him from developing a significant hypernatremia event. Pulmonary/Critical Care will continue to follow along. Job ID: [id number]
[2019-06-19] MEDS: Dextrose 5% in Water 1,000 ML IV SCH (16:33)
[2019-06-19] MEDS: Carvedilol 25 MG TAB PO SCH (16:34)
[2019-06-20 05:05] LABS: Anion Gap 13 mmol/L (10-20); BUN (Urea Nitrogen) 28 mg/dL (8.4-25.7); Calc. Creatinine Clearance 92 mL/min (70-130); Calcium 8.3 mg/dL (7.8-10.44); Carbon Dioxide 27 mmol/L (22-29); Chloride 106 mmol/L (98-107); Estimated GFR-MDRD 58; Glucose 113 mg/dL (70-105); Potassium 3.9 mmol/L (3.5-5.1); Sodium 142 mmol/L (136-145)
[2019-06-20] MEDS: Furosemide 40 MG/4 ML VIAL SLOW IVP SCH (05:50)
[2019-06-20] MEDS: Carvedilol 25 MG TAB PO SCH ×2 (08:48→20:29)
[2019-06-20] MEDS: Dutasteride 0.5 MG CAP PO SCH (08:48)
[2019-06-20] MEDS: Apixaban 5 MG TAB PO SCH ×2 (08:48→20:29)
[2019-06-20] MEDS: Tamsulosin HCl 0.4 MG CAP PO SCH (08:48)
[2019-06-20] MEDS: Gabapentin 100 MG CAP PO SCH ×3 (08:49→20:29)
[2019-06-20] MEDS: Dextrose 5% in Water 1,000 ML IV SCH (08:54)
--- NOTE | 2019-06-20 10:50 | PDOC.HOSPP ---
- Subjective Encounter Date: 06/20/19 Encounter Time: 10:30 Subjective: expresses no complaint.. - Objective Vital Signs & Weight: Vital Signs (12 hours) Temp Pulse Ox 06/20/19 10:21 97.1 F L 06/20/19 08:00 93 L 06/20/19 07:05 97.6 F 06/20/19 03:53 97.6 F 06/19/19 23:37 97.8 F Weight Weight 219 lb Most Recent Monitor Data Heart Rate from ECG 103 NIBP 151/102 NIBP BP-Mean 118 Respiration from ECG 20 SpO2 94 I&O: 06/19/19 06/20/19 06/21/19 06:59 06:59 06:59 Intake Total 2400 1600 Output Total 1150 3825 Balance 1250 -2095 Result Diagrams: 06/17/19 03:54 06/20/19 04:33 Additional Labs: Accuchecks 06/20/19 06/20/19 06/19/19 10:08 05:38 19:59 POC Glucose 99 100 119 H 06/19/19 06/19/19 16:04 10:21 POC Glucose 93 122 H Hospitalist ROS - Medication Medications: Active Medications Generic Name Dose Route Start Last Admin Trade Name Freq PRN Reason Stop Dose Admin Apixaban 5 mg 06/16/19 21:00 06/20/19 08:48 Eliquis PO 5 mg BID GIA Administration Carvedilol 12.5 mg 06/19/19 17:00 06/20/19 08:48 Coreg PO 12.5 mg BID-WM GIA Administration Diltiazem HCl 60 mg 06/18/19 10:00 06/20/19 08:54 Cardizem PO 60 mg Q8H GIA Administration Dutasteride 0.5 mg 06/17/19 09:00 06/20/19 08:48 Avodart PO 0.5 mg DAILY GIA Administration Furosemide 40 mg 06/20/19 06:00 06/20/19 05:50 Lasix SLOW IVP 40 mg 0600 GIA Administration Gabapentin 100 mg 06/16/19 21:00 06/20/19 08:49 Neurontin PO 100 mg TID GIA Administration Dextrose/Water 1,000 mls @ 50 mls/hr 06/19/19 15:30 06/20/19 08:54 D5w IV 1,000 mls .Q20H GIA Administration Sodium Chloride 10 ml 06/17/19 09:00 06/20/19 08:49 Flush - Normal Saline IVF 10 ml Q12HR GIA Administration Tamsulosin HCl 0.4 mg 06/17/19 09:00 06/20/19 08:48 Flomax PO 0.4 mg DAILY GIA Administration - Exam General Appearance: NAD Neck: no JVD Heart: RRR Respiratory: CTAB Gastrointestinal: soft Extremities: no edema Neurological: no focal deficits Psychiatric: A&O x 3 Hosp A/P (1) Acute on chronic kidney failure Code(s): N17.9 - ACUTE KIDNEY FAILURE, UNSPECIFIED; N18.9 - CHRONIC KIDNEY DISEASE, UNSPECIFIED Status: Acute Plan: improving (2) Acute respiratory failure with hypoxia Code(s): J96.01 - ACUTE RESPIRATORY FAILURE WITH HYPOXIA Status: Acute Plan: resolved.. (3) Atrial fibrillation with RVR Code(s): I48.91 - UNSPECIFIED ATRIAL FIBRILLATION Status: Acute Plan: rate controlled.. On eliquis. (4) Pulmonary edema Code(s): J81.1 - CHRONIC PULMONARY EDEMA Status: Acute Qualifiers: Qualified Code(s): J81.0 - Acute pulmonary edema Plan: better clinically. Check chest x-ray. (5) HTN (hypertension) Code(s): I10 - ESSENTIAL (PRIMARY) HYPERTENSION Status: Acute Plan: BP is better, but still high. Increase Coreg.
[2019-06-20] MEDS ORDERED: Carvedilol 6.25 MG TAB PO SCH ×2 (11:15→21:00)
--- NOTE | 2019-06-20 11:15 | RAD ---
RADIOGRAPH CHEST 1 VIEW: DATE: 06/20/2019 HISTORY: 53-year-old male with "lung mass" FINDINGS: There are no airspace densities, pulmonary edema, pneumothorax, or cardiomegaly. The lateral costophr enic angles are sharp. The subcentimeter noncalcified right middle lobe pulmonary nodule demonstrated on recent chest CT may or may not correspond to a tiny nodular density in the right medi al midlung zone on this chest radiograph. The bilateral pleural effusions of moderate size, demonstrated on recent chest CT, are not visible on this single frontal view chest radiograph. IMPRESSION: 1. The known bilateral pleural effusions are not visible on single frontal view. 2. Otherwise No acute cardiopulmonary findings.
--- NOTE | 2019-06-20 13:15 | PDOC.CPN ---
- Subjective Date: 06/20/19 Time: 13:11 Interval history: He is doing better. He received lasix and he diuresed and his creatinine improved. He is in afib RVR now HR in the 130's. - Review of Systems General: denies: fever/chills, weight/appetite/sleep changes, night sweats, fatigue Respiratory: denies: cough, congestion, shortness of breath, exercise intolerance Cardiovascular: reports: edema. denies: chest pain, palpitation, paroxysmal nocturnal dyspnea, orthopnea Gastrointestinal: denies: nausea, vomiting, diarrhea, constipation, abd pain, GI bleeding Musculoskeletal: denies: pain, tenderness, stiffness, swelling, arthritis/ arthralgias Neurological: denies: numbness, syncope, seizure, weakness - Objective Allergies/Adverse Reactions: Allergies Allergy/AdvReac Type Severity Reaction Status Date / Time No Known Allergies Allergy Verified 04/14/19 12:50 Visit Medications: Current Medications Acetaminophen (Tylenol) 650 mg PO Q4H PRN PRN Reason: Headache/Fever/Mild Pain (1-3) Albuterol/Ipratropium (Duoneb) 3 ml NEB [id number] PRN PRN Reason: SOB &/or Wheezing Apixaban (Eliquis) 5 mg PO BID [facility] Last Admin: 06/20/19 08:48 Dose: 5 mg Carvedilol (Coreg) 18.75 mg PO BID [facility] Diltiazem HCl (Cardizem) 60 mg PO Q8H [facility] Last Admin: 06/20/19 08:54 Dose: 60 mg Dutasteride (Avodart) 0.5 mg PO DAILY [facility] Last Admin: 06/20/19 08:48 Dose: 0.5 mg Furosemide (Lasix) 40 mg SLOW IVP 0600 [facility] Last Admin: 06/20/19 05:50 Dose: 40 mg Gabapentin (Neurontin) 100 mg PO TID [facility] Last Admin: 06/20/19 08:49 Dose: 100 mg Dextrose/Water (D5w) 1,000 mls @ 50 mls/hr IV .Q20H [facility] Last Admin: 06/20/19 08:54 Dose: 1,000 mls Sodium Chloride (Flush - Normal Saline) 10 ml IVF Q12HR [facility] Last Admin: 06/20/19 08:49 Dose: 10 ml Sodium Chloride (Flush - Normal Saline) 10 ml IVF PRN PRN PRN Reason: Saline Flush Tamsulosin HCl (Flomax) 0.4 mg PO DAILY [facility]IA Last Admin: 06/20/19 08:48 Dose: 0.4 mg Vital Signs & Weight: Vital Signs Temp Pulse Ox 06/20/19 10:21 97.1 F L 06/20/19 08:00 93 L 06/20/19 07:05 97.6 F 06/20/19 03:53 97.6 F Weight 219 lb - Physical Exam General: alert & oriented x3 HEENT: mucus membranes moist Neck: supple neck Cardiac: irregularly regular Lungs: bibasilar rales Neuro: grossly intact Abdomen: active bowel sounds, soft, non-tender Extremities: 1+ LE edema Skin: clear Musculoskeletal: no pain - Labs Result Diagrams: 06/17/19 03:54 06/20/19 04:33 Troponin/CKMB Troponin I 0.057 ng/mL (< 0.028) H 06/16/19 22:25 - Telemetry Supraventricular conduction: atrial fibrillation - Assessment/Plan Assessment/Plan: 1. Afib rate now in RVR. 2. New onset CM 3. Tobacco use. PLAN: - Continue PO amiodarone load with 400 mg PO BID for 6 days then DOWN to 200 mg daily. - Continue Eliquis. - Plan to re evaluate in [address] Yang office for possible Cardioversion. - Mild bump on creatinine improved with diuresis. - Will rate control better, will increase coreg to 25 mg BID and will give on dose of IV dig and start PO dig. - Continue IV lasix as ordered.
[2019-06-20] MEDS ORDERED: Digoxin 0.5 MG/2 ML AMP SLOW IVP SCH (13:30)
[2019-06-21] MEDS: Furosemide 40 MG/4 ML VIAL SLOW IVP SCH (05:46)
[2019-06-21] MEDS: Dextrose 5% in Water 1,000 ML IV SCH (07:01)
--- NOTE | 2019-06-21 08:46 | PRG ---
DATE OF SERVICE: 06/21/2019 SUBJECTIVE: Mr. Sweeney is doing well. No current complaints. He states he would like to go home. After reviewing his heart rates over the weekend, they have been in the 70s to 90s range. He is currently on carvedilol 25 mg one p.o. b.i.d. in addition to Eliquis. He is also on Cardizem 60 mg q.8 hours. OBJECTIVE: GENERAL: Patient is a pleasant 53-year-old male who is in no acute distress. The patient appears their stated age. VITAL SIGNS: Blood pressure 126/97, pulse 97, temperature afebrile. NEUROLOGIC: The patient is alert and oriented x3 with no focal neurologic deficits. HEENT: Sclerae without icterus. Mouth has moist mucous membranes with normal pallor. NECK: No JVD. Carotid upstroke brisk. No bruits bilaterally. LUNGS: Clear to auscultation with unlabored respirations. BACK: No scoliosis or kyphosis. CARDIAC: Irregular irregular. ABDOMEN: Soft, nontender, nondistended. No peritoneal signs present. No hepatosplenomegaly. No abnormal striae. EXTREMITIES: 2+ femoral and 2+ dorsalis pedis pulses. No cyanosis, clubbing, or edema. SKIN: No gross abnormalities. PERTINENT LABORATORY DATA: Hemoglobin 15.2, creatinine 1.29, which is improved from 2.17. IMPRESSION: 1. New onset cardiomyopathy. 2. Atrial fibrillation. 3. Obstructive sleep apnea. 4. Tobacco abuse. RECOMMENDATIONS: 1. Amiodarone loading with 400 mg one p.o. q.a.m. x30 days, then would reduce to 200 mg one p.o. q.a.m. 2. Outpatient cardioversion after 4 total weeks of Eliquis without missing a dose (discussed this with the patient and he understands). 3. Zoll LifeVest given. LVEF 30-35%. 4. Add low-dose lisinopril now that creatinine has normalized. 5. As long as his heart rate remains stable, would be okay for discharge from my standpoint after Zoll. 6. Plan is to follow up with Mr. Sweeney in 1 week. Job ID: [id number]
--- NOTE | 2019-06-21 08:56 | OP ---
DATE OF PROCEDURE: 06/18/2019 PROCEDURE PERFORMED: Transesophageal echocardiogram. PREPROCEDURE DIAGNOSIS: Atrial fibrillation. POSTPROCEDURE DIAGNOSIS: Atrial fibrillation. Conscious sedation performed with propofol. The probe passed easily into esophagus. FINDINGS: Overall LVEF appears moderately diminished estimated at 30%-35%. The left atrium is well visualized. Left atrial appendage is well visualized. There appears to be significant spontaneous echo contrast with no obvious thrombus present. Velocities are less than 30 cm/sec noted with the left atrial appendage. The mitral valve is well visualized. No masses or vegetations. Aortic valve is normal excursion. IMPRESSION: 1. New onset cardiomyopathy with left ventricular ejection fraction 30%-35%. 2. Significant spontaneous echo contrast with markedly diminished velocities present within left atrial appendage. PLAN: I will postpone cardioversion given spontaneous echo contrast and new findings of cardiomyopathy. The patient initially was on propafenone with previous normal LVEF. We will have to discontinue propafenone and add amiodarone therapy. We would recommend anticoagulation therapy for 3 weeks prior to cardioversion and after amiodarone loading. I would also recommend Zoll LifeVest given the low LVEF. Job ID: [id number]
[2019-06-21] MEDS: Apixaban 5 MG TAB PO SCH (08:58)
[2019-06-21] MEDS: Tamsulosin HCl 0.4 MG CAP PO SCH (08:59)
[2019-06-21] MEDS: Carvedilol 25 MG TAB PO SCH (08:59)
[2019-06-21] MEDS: Dutasteride 0.5 MG CAP PO SCH (08:59)
[2019-06-21] MEDS: Gabapentin 100 MG CAP PO SCH (08:59)
[2019-06-21] MEDS ORDERED: Lisinopril 5 MG TAB PO SCH (09:00)
[2019-06-21] MEDS ORDERED: Amiodarone 200 MG TAB PO SCH (09:00)
[2019-06-21 15:43] VITALS: TEMP 98
== END 2019-06-21 16:40 | disposition home or self-care (01) | DRG 308 ==
LOC: ERS 14:54 → ERHOLD 16:22 → IMCU/EMU 19:27
PROVIDERS: ADMIT Internal Medicine; ATTEND Internal Medicine
PROC: B24BZZ4 Ultrasonography of Heart with Aorta, Transesophageal (ICD-10-PCS; principal; 2019-06-21)
DX: I48.91 Unspecified atrial fibrillation (principal); J96.01 Acute respiratory failure with hypoxia; J81.0 Acute pulmonary edema; N17.9 Acute kidney failure, unspecified; I13.0 Hypertensive heart and chronic kidney disease with heart failure and stage 1 through stage 4 chronic kidney disease, or unspecified chronic kidney disease; I50.32 Chronic diastolic (congestive) heart failure; I42.9 Cardiomyopathy, unspecified; K21.9 Gastro-esophageal reflux disease without esophagitis; E66.9 Obesity, unspecified; N18.3 Chronic kidney disease, stage 3 (moderate); Z68.34 Body mass index [BMI] 34.0-34.9, adult; M10.9 Gout, unspecified; F17.200 Nicotine dependence, unspecified, uncomplicated; G47.33 Obstructive sleep apnea (adult) (pediatric); E11.40 Type 2 diabetes mellitus with diabetic neuropathy, unspecified; E78.5 Hyperlipidemia, unspecified; Z79.01 Long term (current) use of anticoagulants; N40.1 Benign prostatic hyperplasia with lower urinary tract symptoms; R33.8 Other retention of urine
CPT/HCPCS: 36415; 36416; 71045; 71250; 80048; 85025; 92960; 93005; 93306; 93312; 93798; 94640; 96365; 96366; 96376; J1160; J1940; J2704; J3490; J7620

== ENCOUNTER 2020-09-15 09:29 | Inpatient (IN) | payer OTHER, SELFPAY ==
[2020-09-15 10:31] LABS: Prothrombin Time 13.2 sec (12.0-14.7)
[2020-09-15 10:32] LABS: #Basophils 0.1 thou/uL (0.0-0.2); #Eosinphils 0.3 thou/uL (0.0-0.7); #Monocytes 0.4 thou/uL (0.11-0.59); #Neutrophils 4.6 thou/uL (1.40-6.50); %Basophils 0.9 % (0.0-1.0); %Eosinophils 4.3 % (0.0-10.0); %Lymphocytes 15.8 % (21.0-51.0); %Monocytes 5.6 % (0.0-10.0); %Neutrophils 73.4 % (42.0-75.0); Hemoglobin 15.4 g/dL (14.0-18.0); Mean Corpuscular HGB CONC 33.4 g/dL (32.0-36.0); Mean Corpuscular Hemoglobin 29.2 pg (27.0-31.0); Mean Corpuscular Volume 87.5 fL (78.0-98.0); PTT 28.6 sec (22.9-36.1); Platelet Count 166 thou/uL (130-400); RBC Distribution Width 12.9 % (11.5-14.5); Red Blood Cell (RBC) Count 5.28 mill/uL (4.70-6.10); White Blood Cell (WBC) Count 6.3 thou/uL (4.8-10.8)
[2020-09-15 10:44] LABS: Bacteria/HPF None Seen HPF (None Seen); Bilirubin Negative (Negative); Blood, Urine Negative (Negative); Clarity Clear (Clear); Glucose, Urine (Dipstick) Greater than 1000 mg/dL (Negative); Ketone, Urine Trace mg/dL (Negative); Leukocyte Negative Leu/uL (Negative); Nitrite Negative (Negative); Protein, Urine (Dipstick) 30 mg/dL (Neg-Trace); RBC/HPF 0-3 HPF (0-3); Specific Gravity, Urine 1.029 (1.002-1.036); Squamous Epithelial None Seen HPF (0-3); Urobilinogen Normal mg/dL (Less than 2); WBC/HPF 0-3 HPF (0-3)
[2020-09-15 10:54] LABS: ALT (SGPT) 34 U/L (8-55); AST (SGOT) 32 U/L (5-34); Albumin 3.5 g/dL (3.5-5.0); Alkaline Phosphatase 112 U/L (40-110); Anion Gap 19 mmol/L (10-20); BUN (Urea Nitrogen) 27 mg/dL (8.4-25.7); Bilirubin, Total 0.6 mg/dL (0.2-1.2); CK (CPK) 66 U/L (30-200); Calc. Creatinine Clearance 0 mL/min (70-130); Calcium 8.9 mg/dL (7.8-10.44); Carbon Dioxide 21 mmol/L (22-29); Chloride 95 mmol/L (98-107); Globulin 3.7 g/dL (2.4-3.5); Potassium 5.2 mmol/L (3.5-5.1); Protein, Total 7.2 g/dL (6.0-8.3); Sodium 130 mmol/L (136-145)
[2020-09-15] MEDS ORDERED: Insulin Regular 300 UNITS/3 ML VIAL ONE (11:08)
[2020-09-15 11:43] LABS: Glucose 715 mg/dL (70-105)
[2020-09-15 12:00] LABS: Base Excess-Venous 1.1 mmol/L (-2.0 to 3.0); Bicarbonate (HCO3v) 27.9 mmol/L (22.0-28.0); CO2 Tension (PvCO2) 49.7 mmHg (40.0-50.0); Calcium, Ionized 1.18 mmol/L (1.15-1.33); Chloride 99 mmol/L (98-107); Hemoglobin - Calc 19.2 g/dL (14.0-18.0); Potassium 5.6 mmol/L (3.5-5.1); Sodium 132 mmol/L (138-145); T. Carbon Dioxide 29.4 mmol/L (22.0-28.0); vO2 Saturation-calc 43.8 % (60.0-85.0)
--- NOTE | 2020-09-15 12:24 | CT ---
HEAD CT WITHOUT CONTRAST: Date: 09/15/2020 HISTORY: Altered mental status. COMPARISON: None. FINDINGS: No parenchymal hemorrhage. No extra-axial hematoma. No midline shift. Basilar cisterns are patent. Brain volume, age-appropriate. Cortical johnston-white matter differentiation preserved. No hydrocephalus. Nonspecific white matter hypodensity involving right wong radiata. Adequate aeration of the sinuses and mastoid air cells. Intact calvarium. IMPRESSION: Nonspecific hypodensity involving the right coronal radiata. Indeterminate white matter infarct. If t here is concern, consider brain MRI. POS: [facility]
--- NOTE | 2020-09-15 12:33 | RAD ---
PORTABLE CHEST: Date: 09/15/2020 INDICATION: Chest pain. COMPARISON: 06/20/2019. FINDINGS: Lungs appear clear. No evidence of infiltrate. Heart and mediastinum unremarkable. Vasculature normal . IMPRESSION: No acute process identified. POS: [facility]
--- NOTE | 2020-09-15 13:45 | CON ---
NEUROLOGY CONSULTATION DATE OF CONSULTATION: 09/15/2020 REASON FOR CONSULTATION: Right-sided weakness. HISTORY OF PRESENT ILLNESS: Mr. Sweeney is a 55-year-old male with medical history significant for heart failure, presented with a 3-day history of slurred speech, disorientation, ataxia, focal right-sided weakness, and vertigo as if the room is spinning in front of his eyes for the last 3 days. The patient denies nausea, vomiting, headache, chest pain, abdominal pain, recent illness, or recent exposure to COVID. He denies any prior episodes of stroke-like symptoms. He has history of atrial fibrillation/flutter and takes Eliquis on a daily basis. REVIEW OF SYSTEMS: All systems reviewed and were negative except the pertinent positives and negatives mentioned in the HPI. PAST MEDICAL HISTORY: 1. Atrial fibrillation/flutter, on Eliquis. 2. Congestive heart failure. 3. Coronary artery disease. 4. Diabetic neuropathy. 5. Gastroesophageal reflux disease. 6. Benign prostatic hypertrophy. 7. Hyperlipidemia. 8. Hypercholesterolemia. 9. Hypertension. 10. Chronic kidney disease, stage 2. PAST SURGICAL HISTORY: Hernia repair. SOCIAL HISTORY: The patient drinks socially twice a month. Denies illegal drug use. He does chew tobacco. ALLERGIES: NO KNOWN DRUG ALLERGIES. HOME MEDICATIONS: 1. Eliquist 5 mg p.o. b.i.d. 2. Gabapentin 100 mg p.o. t.i.d. 3. Diltiazem XR 180 mg once daily. 4. Amiodarone 200 mg once daily. 5. Furosemide 40 mg once a day. 6. Allopurinol 300 mg once a day. 7. Digoxin 125 mcg once a day. 8. Lisinopril 5 mg once daily. 9. Potassium chloride 20 mEq once daily. 10. Carvedilol 25 mg p.o. b.i.d. PHYSICAL EXAMINATION: VITAL SIGNS: Blood pressure 126/94, pulse 81 to 104, and respiratory rate 20. GENERAL: An alert and awake male, in no acute distress. CVS: Regular rate and rhythm. CHEST: Clear. ABDOMEN: Soft. NECK: Supple. NEUROLOGIC: Mental status; the patient is alert and oriented to person, place, and time. He does have baseline dysarthria. Cranial nerves 2 through 12 intact except 7 with mild right facial droop and 9 and 10 with dysarthria. Motor; muscle tone and bulk are normal. Strength; 4/5 in the right upper and lower extremities and 5/5 in the left upper and lower extremities. Cerebellar; finger-nose testing intact, but slow on the right secondary to weakness. Right pronator drift. Gait deferred due to the patient's safety. DATA REVIEWED: I have reviewed the head CT, which showed nonspecific hypodensity on the right. No intracranial hemorrhage. ASSESSMENT AND PLAN: Mr. Sweeney is a 55-year-old male with medical history significant for hypertension, hyperlipidemia, diabetes, congestive heart failure, and coronary artery disease, and renal insufficiency, admitted for stroke-like symptoms including ataxia, vertigo, focal right-sided weakness with slurred speech, and right facial droop, most likely a stroke. Consider MRI of the brain to rule out acute intracranial process, 2D echo to evaluate for left ventricular ejection fraction and to rule out thrombus or PFO, CTA of the head and neck to rule out hemodynamically significant stenosis, and telemetry to rule out arrhythmias. Continue Eliquis 5 mg p.o. b.i.d. for secondary stroke prevention. Start high-intensity statin for secondary stroke prevention. Check hemoglobin A1c, fasting lipid panel, and TSH. Continue home medications. Permissive control of blood pressure at this time. Strict control of blood glucose. PT/OT/speech. DVT prophylaxis. We will continue to follow. Thank you for the consult. Plan discussed in detail with the patient and the family member at bedside. Job ID: [id number] [id number]
[2020-09-15 14:28] LABS: Troponin I 0.017 ng/mL (< 0.028)
[2020-09-15 16:39] LABS: Troponin I 0.029 ng/mL (< 0.028)
[2020-09-15 18:32] VITALS: BMI 35.5
[2020-09-15] MEDS ORDERED: Ondansetron PF 4 MG/2 ML Vial IVP PRN (18:45)
[2020-09-15] MEDS ORDERED: Sodium Chloride 0.9% 1,000 ML IV SCH (18:45)
[2020-09-15] MEDS ORDERED: Ondansetron ODT 4 MG TAB SL PRN (18:45)
[2020-09-15] MEDS ORDERED: Dextrose 5% in Water 1,000 ML IV PRN (19:43)
[2020-09-15] MEDS ORDERED: Dextrose 50% Abboject 50 ML SYRINGE SLOW IVP PRN (19:43)
[2020-09-15] MEDS ORDERED: Senokot S 8.6-50 MG TAB PO PRN (20:04)
[2020-09-15] MEDS ORDERED: Acetaminophen 325 MG TAB PO PRN (20:04)
[2020-09-15] MEDS: Gabapentin 100 MG CAP PO SCH (20:50)
[2020-09-15] MEDS: Carvedilol 25 MG TAB PO SCH (20:50)
[2020-09-15] MEDS: Apixaban 5 MG TAB PO SCH (20:50)
[2020-09-15] MEDS: Famotidine 20 MG TAB PO SCH (20:52)
[2020-09-15] MEDS ORDERED: Insulin Regular 300 UNITS/3 ML VIAL SC SCH (21:15)
[2020-09-15] MEDS ORDERED: Sodium Chloride 0.9% 500 ML IV SCH (21:15)
--- NOTE | 2020-09-15 22:38 | HP ---
PCP: Dr. Mike. CHIEF COMPLAINT: Weakness, slurred speech, 3 days of generalized weakness. HISTORY OF PRESENT ILLNESS: Mr. Sweeney is a very pleasant 55-year-old man with a past medical history pertinent for atrial fibrillation, flutter and is on Eliquis. He reports 3-day period of increasing generalized weakness, and noticed that his right side was weaker than his left. Also reports some slurred speech, disorientation and increased fatigue. He reports that he had some chest pain 3 days ago, but it went away and has not recurred. He said he was more somnolent than normal. He said he has been getting from the bed to his chair and then lay, sitting in his chair and going to sleep, which is not normal for him. He said his sister came over this morning, became concerned with his symptoms and called 911 and they brought him to the emergency room for evaluation. CT of the brain without contrast in the emergency room shows nonspecific hypodensity involving the right wong radiata, indeterminate white matter infarct and they recommend an MRI of the brain. He reports that he had scheduled a cardioversion for his atrial fibrillation and Dr. Yang decided before the procedure that he had a clot and recommended that he reschedule once that had resolved. He had a NORMA done at that time in 2019 in June and appears his calculated EF at that time was 33%. His lab work, sodium was 130, potassium 5.2, chloride 95, BUN 27, creatinine 2.14, estimated GFR is 32. His glucose at that time was 715, which is concerning as he does not have a history of diabetes. Alkaline phosphatase is 112, 1st two troponins were negative, 2nd one was in the slightly indeterminate range of 0.029. He was given 1 L of fluid in the emergency room as well as 10 units of Novolin R and sugar has come down in the 500s, so we will repeat the saline and 6 units of regular insulin this evening. The patient will be admitted for further management. REVIEW OF SYSTEMS: The patient reports chest pain several days ago. Denies any currently. He reports focal weakness on the right side and reports sensory changes, reports speech changes. Reports that he is more fatigued than normal. All other systems are reviewed and are negative unless mentioned above or in HPI. PAST MEDICAL HISTORY: Pertinent for congestive heart failure, atrial fibrillation, he may have had a history of diabetes in the past, but he is not on any medication for it. GERD, BPH, hyperlipidemia, high cholesterol, hypertension, chronic kidney disease stage 2. SURGICAL HISTORY: Hernia repair. PSYCHIATRIC HISTORY: None. SOCIAL HISTORY: He is a tobacco chewer. ALLERGIES: NONE. HOME MEDICATIONS: 1. Allopurinol 300 mg p.o. daily. 2. Cordarone 200 mg p.o. daily. 3. Diltiazem 180 mg p.o. daily. 4. Eliquis 5 mg p.o. b.i.d. 5. Gabapentin 100 mg p.o. t.i.d. 6. Digoxin p.o. daily. 7. Coreg 25 mg p.o. b.i.d. 8. Lasix 40 mg p.o. daily. 9. Potassium 20 mEq p.o. daily. 10. Lisinopril 5 mg p.o. daily. PHYSICAL EXAMINATION: VITAL SIGNS: Blood pressure 173/106, pulse is 91, respiratory rate is 15, temp is 98.9, pO2 sats are 98% on room air. CONSTITUTIONAL: The patient is alert and oriented to person, place, and time. He appears nontoxic. HEENT: Head is atraumatic and normocephalic. Eyes, pupils are equally round and reactive to light. Extraocular muscles are intact. ENT, he does have a slight droop on the left side. Cranial nerves 2 through 12 are grossly intact with exception of a 7. He does have some right facial droop, and 9 and 10 with some dysarthria. RESPIRATORY: Breath sounds are clear. Chest expansion is equal. CARDIOVASCULAR: Irregularly irregular. Normal heart sounds. ABDOMEN: Soft, nontender. EXTREMITIES: Upper extremities, he does have strength 4/5 on the right, 5/5 on the left. Radial pulses are equal. Lower extremities, 4/5 strength on the right, 5/5 on the left. Pedal pulses are normal. There is no edema noted. He has some right pronator drift. NEURO: Cranial nerves 2 through 12 grossly intact except for 7 with mild facial droop, 9 and 10 with some dysarthria. He has decreased strength on the right. ASSESSMENT AND PLAN: 1. Appears to be CVA on the CT scan. We will obtain an MRI of the brain. Order an echocardiogram. A CTA is recommended, but his GFR is 32, so we will order a carotid Doppler for now and if his kidney function improves, we will consider a CTA. 2. We will continue his Eliquis, PT/OT, speech assessment has been ordered. Neurology has seen the patient, Dr. Hall, we would appreciate her recommendations. Fasting lipids have been ordered. TSH has been ordered, an A1c has been ordered. 3. History of congestive heart failure. We will restart his home medications. 4. History of atrial fibrillation, aflutter, Eliquis has been restarted. We have added atorvastatin. 5. History of hypertension. Home medications will be restarted. 6. History of hyperlipidemia. We will recheck fasting lipids in light of his CVA. We will start statin 40 mg daily. 7. Hyperglycemia. He states in his history that he has a history of diabetes, but he denies having a history and he has no medications. His home medication list indicates that he is being treated, so we will repeat the insulin and fluid bolus, although the fluid to be more judicious at 500 mL and recheck at 11 p.m. tonight. We will recheck his labs in the morning and keep close eye on his sugars. Before meals and at bedtime Accu-Cheks have been ordered as well as sliding scale coverage as needed. 8. SCDs, Eliquis for DVT prevention, Pepcid for PUD prevention. 9. Case discussed with Dr. Vasquez, who agrees with plan. Job ID: [id number]
[2020-09-15 23:22] LABS: Anion Gap 14 mmol/L (10-20); BUN (Urea Nitrogen) 26 mg/dL (8.4-25.7); Calc. Creatinine Clearance 62 mL/min (70-130); Calcium 8.2 mg/dL (7.8-10.44); Carbon Dioxide 20 mmol/L (22-29); Chloride 101 mmol/L (98-107); Glucose 526 mg/dL (70-105); Sodium 131 mmol/L (136-145)
[2020-09-15 23:28] LABS: Troponin I 0.021 ng/mL (< 0.028)
[2020-09-16] MEDS: HumaLOG 300 UNITS/3 ML VIAL SC PRN ×4 (01:22→17:10)
[2020-09-16 05:09] LABS: #Basophils 0.1 thou/uL (0.0-0.2); #Eosinphils 0.3 thou/uL (0.0-0.7); #Lymphocytes 1.8 thou/uL (1.20-3.40); #Monocytes 0.5 thou/uL (0.11-0.59); #Neutrophils 3.4 thou/uL (1.40-6.50); %Basophils 1.6 % (0.0-1.0); %Eosinophils 5.3 % (0.0-10.0); %Lymphocytes 29.9 % (21.0-51.0); %Monocytes 7.9 % (0.0-10.0); %Neutrophils 55.2 % (42.0-75.0); Hemoglobin 13.9 g/dL (14.0-18.0); Mean Corpuscular HGB CONC 33.6 g/dL (32.0-36.0); Mean Corpuscular Hemoglobin 28.9 pg (27.0-31.0); Mean Corpuscular Volume 86.1 fL (78.0-98.0); Mean Platelet Volume 9.3 fL (7.4-10.4); Platelet Count 145 thou/uL (130-400); RBC Distribution Width 12.7 % (11.5-14.5); Red Blood Cell (RBC) Count 4.81 mill/uL (4.70-6.10); White Blood Cell (WBC) Count 6.2 thou/uL (4.8-10.8)
[2020-09-16 05:16] LABS: Hemoglobin A1c Greater than 14.0 % (4.0-6.0)
[2020-09-16 05:34] LABS: ALT (SGPT) 28 U/L (8-55); AST (SGOT) 22 U/L (5-34); Albumin 3.2 g/dL (3.5-5.0); Alkaline Phosphatase 91 U/L (40-110); Anion Gap 14 mmol/L (10-20); BUN (Urea Nitrogen) 23 mg/dL (8.4-25.7); Bilirubin, Total 0.5 mg/dL (0.2-1.2); Calc. Creatinine Clearance 72 mL/min (70-130); Calcium 8.6 mg/dL (7.8-10.44); Carbon Dioxide 24 mmol/L (22-29); Cardiac Risk 13.6 (Less than 4.5); Chloride 104 mmol/L (98-107); Cholesterol 312 mg/dl (< 200 Desired); Globulin 2.8 g/dL (2.4-3.5); Glucose 297 mg/dL (70-105); HDL Cholesterol 23 mg/dL (>60 Neg Risk); Potassium 3.9 mmol/L (3.5-5.1); Sodium 138 mmol/L (136-145)
[2020-09-16 05:57] LABS: Triglycerides 1364 mg/dL (Less than 150)
--- NOTE | 2020-09-16 09:58 | ULT ---
BILATERAL CAROTID DUPLEX ULTRASOUND: DATE: 09/16/2020 HISTORY: CVA. TECHNIQUE: Bryant scale ultrasound with color flow and spectral Doppler imaging of the extracranial carotid artery systems performed bilaterally. FINDINGS: There is a small amount of plaque formation in the bifurcations. The peak systolic velocity in the right ICA measures 41 cm/second with an end-diastolic velocity of 1 3 cm/second and a systolic ratio of 0.60. The peak systolic velocity in the left ICA measures 76 cm/second with an end-diastolic velocity of 11 cm/second and a systolic ratio of 0.92. Flow in both vertebral arteries remains antegrade. IMPRESSION: No evidence of hemodynamically significant stenosis in either ICA. POS: MZA
[2020-09-16] MEDS: Amiodarone 200 MG TAB PO SCH (10:42)
[2020-09-16] MEDS: Allopurinol 300 MG TAB PO SCH (10:42)
[2020-09-16] MEDS: Apixaban 5 MG TAB PO SCH ×2 (10:43→21:34)
[2020-09-16] MEDS: Carvedilol 25 MG TAB PO SCH ×2 (10:43→21:37)
[2020-09-16] MEDS: Digoxin 0.125 MG TAB PO SCH (10:43)
[2020-09-16] MEDS: Aspirin 81 mg Enteric Coated Tablet PO SCH (10:43)
[2020-09-16] MEDS: Gabapentin 100 MG CAP PO SCH ×3 (10:44→21:29)
--- NOTE | 2020-09-16 10:54 | MRI ---
MRI BRAIN WITHOUT CONTRAST: Date: 09/16/2020 HISTORY: Ataxia. Facial droop. Right-sided weakness. Speech difficulty yesterday, improved today. FINDINGS: Correlation made with CT scan from previous day. No restricted diffusion is seen. There is an old focal infarction in the right anterior wong radiat a. Smaller foci of T2 prolongation in the periventricular and subcortical white matter consistent wit h mild chronic small vessel ischemic disease. No evidence of acute infarct, hemorrhage, midline shift, or abnormal extra-axial fluid collections ar e seen. The ventricular size is appropriate and the basilar cisterns are patent. There is mucosal dis ease in the paranasal sinuses. IMPRESSION: No evidence of acute intracranial process. POS: MZA
[2020-09-16] MEDS ORDERED: Fenofibrate Nanocrystallized 145 MG TAB PO SCH (13:00)
[2020-09-16] MEDS ORDERED: Insulin Glargine 20 UNITS in Pre-Filled Syringe 1 EACH SC SCH (13:00)
[2020-09-16] MEDS ORDERED: Fish Oil 1,000 MG CAP PO SCH (13:00)
[2020-09-16] MEDS ORDERED: metFORMIN 500 MG TAB PO SCH (15:00)
--- NOTE | 2020-09-16 15:54 | PDOC.NEUPN ---
- Subjective Encounter Date: 09/16/20 Subjective: Mr. Aguilar seems to be back to his baseline. Focal weakness resolved at this time. Speech is better - Objective Vital Signs & Weight: Vital Signs (12 hours) Temp Pulse Pulse Resp BP BP Pulse Ox 09/16/20 15:43 98.1 F 62 14 153/83 H 99 09/16/20 11:10 97.2 F L 65 16 164/103 H 100 09/16/20 10:45 163/99 H 09/16/20 10:43 68 09/16/20 09:20 65 170/89 H 09/16/20 07:41 98.0 F 65 16 170/89 H 99 09/16/20 04:00 97.9 F 68 18 152/89 H 97 Pulse Ox 09/16/20 15:43 09/16/20 11:10 09/16/20 10:45 09/16/20 10:43 09/16/20 09:20 99 09/16/20 07:41 09/16/20 04:00 Weight Admit Weight 207 lb Weight 207 lb I&O: 09/15/20 09/16/20 09/17/20 06:59 06:59 06:59 Intake Total 1186 Output Total 975 Balance 211 Result Diagrams: 09/16/20 04:33 09/16/20 04:33 Additional Labs: Accuchecks 09/16/20 09/16/20 09/15/20 10:35 05:25 23:54 POC Glucose 380 H 295 H 441 H Radiology Reviewed by me: Yes EKG Reviewed by me: Yes ROS - Review of Systems Constitutional: denies: fever, chills, sweats, weakness, malaise, other Eyes: denies: pain, vision change, conjunctivae inflammation, eyelid inflammation, redness, other ENT: denies: ear pain, ear discharge, nose pain, nose discharge, nose congestion, mouth pain, mouth swelling, throat pain, throat swelling, other Gastrointestinal: denies: nausea, vomiting, abdominal pain, diarrhea, constipation, melena, hematochezia, other Genitourinary: denies: dysuria, frequency, incontinence, hematuria, retention, other Musculoskeletal: denies: neck pain, shoulder pain, arm pain, back pain, hand pain, leg pain, foot pain, other Neurological: denies: weakness, numbness, incoordination, change in speech, con fusion, seizures, other - Medication Medications: Active Medications Generic Name Dose Route Start Last Admin Trade Name Freq PRN Reason Stop Dose Admin Allopurinol 300 mg 09/16/20 09:00 09/16/20 10:42 Allopurinol 300 Mg Tab PO 300 mg DAILY GIA Administration Amiodarone HCl 200 mg 09/16/20 09:00 09/16/20 10:42 Amiodarone 200 Mg Tab PO 200 mg DAILY GIA Administration Apixaban 5 mg 09/15/20 21:00 09/16/20 10:43 Apixaban 5 Mg Tab PO 5 mg BID GIA Administration Aspirin 81 mg 09/16/20 09:00 09/16/20 10:43 Aspirin 81 Mg Enteric Coated Tablet PO 81 mg DAILY GIA Administration Carvedilol 25 mg 09/15/20 21:00 09/16/20 10:43 Carvedilol 25 Mg Tab PO 25 mg BID GIA Administration Digoxin 0.125 mg 09/16/20 09:00 09/16/20 10:43 Digoxin 0.125 Mg Tab PO 0.125 mg DAILY GIA Administration Diltiazem HCl 180 mg 09/16/20 09:00 09/16/20 10:44 Diltiazem Hcl Cd 180 Mg Capsule PO 180 mg DAILY GIA Administration Famotidine 20 mg 09/15/20 21:00 09/15/20 20:52 Famotidine 20 Mg Tab PO 20 mg QPM GIA Administration Gabapentin 100 mg 09/15/20 21:00 09/16/20 14:32 Gabapentin 100 Mg Cap PO 100 mg TID GIA Administration Insulin Human Lispro 0 units 09/15/20 19:43 09/16/20 11:03 Humalog 300 Units/3 Ml Vial SC 10 unit .MODERATE SLIDING SC PRN Administration Moderate Correctional Scale Insulin Human Lispro 0 units 09/15/20 19:43 09/16/20 01:22 Humalog 300 Units/3 Ml Vial SC 5 unit .BEDTIME SLIDING SC PRN Administration Bedtime Correctional Scale Sodium Chloride 10 ml 09/15/20 21:00 09/16/20 10:45 Flush - Normal Saline 10 Ml Syringe IVF 10 ml Q12HR GIA Administration - Exam General Appearance: awake alert Eye: PERRL ENT: normocephalic atraumatic Neck: supple Respiratory: CTAB Cardiovascular: irregular Gastrointestinal: soft Extremities: no cyanosis Skin: normal turgor Neurological: no weakness, no focal deficits Musculoskeletal: normal tone, normal strength, no muscle wasting PSYCH: normal affect, normal behavior, A&O x 3 Results - Labs Result Diagrams: 09/16/20 04:33 09/16/20 04:33 Lab results: WBC 6.2 thou/uL (4.8-10.8) 09/16/20 04:33 Hgb 13.9 g/dL (14.0-18.0) L 09/16/20 04:33 Hct 41.5 % (42.0-52.0) L 09/16/20 04:33 MCV 86.1 fL (78.0-98.0) 09/16/20 04:33 Plt Count 145 thou/uL (130-400) 09/16/20 04:33 Neutrophils % 55.2 % (42.0-75.0) 09/16/20 04:33 VBG pCO2 49.7 mmHg (40.0-50.0) 09/15/20 11:56 VBG pO2 25.8 mmHg (35.0-45.0) L 09/15/20 11:56 Sodium 138 mmol/L (136-145) 09/16/20 04:33 Potassium 3.9 mmol/L (3.5-5.1) 09/16/20 04:33 Chloride 104 mmol/L (98-107) 09/16/20 04:33 Carbon Dioxide 24 mmol/L (22-29) 09/16/20 04:33 BUN 23 mg/dL (8.4-25.7) 09/16/20 04:33 Creatinine 1.53 mg/dL (0.7-1.3) H 09/16/20 04:33 Glucose 297 mg/dL (70-105) H 09/16/20 04:33 Calcium 8.6 mg/dL (7.8-10.44) 09/16/20 04:33 Total Bilirubin 0.5 mg/dL (0.2-1.2) 09/16/20 04:33 AST 22 U/L (5-34) 09/16/20 04:33 ALT 28 U/L (8-55) 09/16/20 04:33 Alkaline Phosphatase 91 U/L (40-110) 09/16/20 04:33 Creatine Kinase 66 U/L (30-200) 09/15/20 10:00 Troponin I 0.021 ng/mL (< 0.028) 09/15/20 22:58 Serum Total Protein 6.0 g/dL (6.0-8.3) 09/16/20 04:33 Albumin 3.2 g/dL (3.5-5.0) L 09/16/20 04:33 Urine Ketones Trace mg/dL (Negative) A 09/15/20 10:28 Urine Blood Negative (Negative) 09/15/20 10:28 Urine Nitrite Negative (Negative) 09/15/20 10:28 Ur Leukocyte Esterase Negative Jazmine/uL (Negative) 09/15/20 10:28 Urine RBC 0-3 HPF (0-3) 09/15/20 10:28 Urine WBC 0-3 HPF (0-3) 09/15/20 10:28 Ur Squamous Epith Cells None Seen HPF (0-3) 09/15/20 10:28 Urine Bacteria None Seen HPF (None Seen) 09/15/20 10:28 - Radiology Interpretation MRI - head Additional Comment: MRI of the brain reviewed which was negative for acute intracranial pathology. PN A/P (1) TIA (transient ischemic attack) Code(s): G45.9 - TRANSIENT CEREBRAL ISCHEMIC ATTACK, UNSPECIFIED Status: Acute (2) Acute on chronic kidney failure Code(s): N17.9 - ACUTE KIDNEY FAILURE, UNSPECIFIED; N18.9 - CHRONIC KIDNEY DISEASE, UNSPECIFIED Status: Acute (3) Atrial fibrillation with RVR Code(s): I48.91 - UNSPECIFIED ATRIAL FIBRILLATION Status: Acute (4) CKD (chronic kidney disease), stage II Code(s): N18.2 - CHRONIC KIDNEY DISEASE, STAGE 2 (MILD) Status: Acute (5) HTN (hypertension) Code(s): I10 - ESSENTIAL (PRIMARY) HYPERTENSION Status: Acute (6) Tobacco abuse counseling Code(s): Z71.6 - TOBACCO ABUSE COUNSELING Status: Acute (7) Gout Code(s): M10.9 - GOUT, UNSPECIFIED Status: Chronic (8) HTN (hypertension) Code(s): I10 - ESSENTIAL (PRIMARY) HYPERTENSION Status: Chronic Qualifiers: Hypertension type: essential hypertension Qualified Code(s): I10 - Essential (primary) hypertension - Plan Daily Plan: PT/OT, speech therapy, out of bed/ambulate Mr. Aguilar is a 55-year-old male with a history of a significant for hypertension, atrial fibrillation with RVR, renal insufficiency presented with strokelike symptoms which are now resolved and he is back to his baseline. MRI of the brain reviewed which was negative for acute intracranial pathology. Carotid Dopplers did not reveal hemodynamically significant stenosis. 2D echo to evaluate for left ventricular ejection fraction is pending at this time. Continue telemetry to rule out arrhythmias. Patient does have history of atrial fibrillation and is on Eliquis. Continue Eliquis and start high intensity statin for secondary stroke prevention. Neurochecks every 4 hours. Continue home medications. Strict control of blood pressure and blood glucose. Continue medical management per primary team. PT/OT/speech Plan discussed in detail with the patient and also with the nursing staff.
--- NOTE | 2020-09-16 16:14 | PDOC.HOSPP ---
- Subjective Encounter Date: 09/16/20 Encounter Time: 14:15 Subjective: feels better, sister at bedside is able to walk in the room right sided weakness has resolved, is right handed, speech is better was having a lot of polyurea prior to admission due to high sugar levels is resolving. Is a new onset diabetic - Objective Vital Signs & Weight: Vital Signs (12 hours) Temp Pulse Pulse Resp BP BP Pulse Ox 09/16/20 15:43 98.1 F 62 14 153/83 H 99 09/16/20 11:10 97.2 F L 65 16 164/103 H 100 09/16/20 10:45 163/99 H 09/16/20 10:43 68 09/16/20 09:20 65 170/89 H 09/16/20 07:41 98.0 F 65 16 170/89 H 99 Pulse Ox 09/16/20 15:43 09/16/20 11:10 09/16/20 10:45 09/16/20 10:43 09/16/20 09:20 99 09/16/20 07:41 Weight Admit Weight 207 lb Weight 207 lb I&O: 09/15/20 09/16/20 09/17/20 06:59 06:59 06:59 Intake Total 1186 Output Total 975 Balance 211 Result Diagrams: 09/16/20 04:33 09/16/20 04:33 Additional Labs: Accuchecks 09/16/20 09/16/20 09/15/20 10:35 05:25 23:54 POC Glucose 380 H 295 H 441 H Hospitalist ROS - Medication Medications: Active Medications Generic Name Dose Route Start Last Admin Trade Name Tayler PRN Reason Stop Dose Admin Allopurinol 300 mg 09/16/20 09:00 09/16/20 10:42 Allopurinol 300 Mg Tab PO 300 mg DAILY GIA Administration Amiodarone HCl 200 mg 09/16/20 09:00 09/16/20 10:42 Amiodarone 200 Mg Tab PO 200 mg DAILY GIA Administration Apixaban 5 mg 09/15/20 21:00 09/16/20 10:43 Apixaban 5 Mg Tab PO 5 mg BID GIA Administration Aspirin 81 mg 09/16/20 09:00 09/16/20 10:43 Aspirin 81 Mg Enteric Coated Tablet PO 81 mg DAILY GIA Administration Carvedilol 25 mg 09/15/20 21:00 09/16/20 10:43 Carvedilol 25 Mg Tab PO 25 mg BID GIA Administration Digoxin 0.125 mg 09/16/20 09:00 09/16/20 10:43 Digoxin 0.125 Mg Tab PO 0.125 mg DAILY GIA Administration Diltiazem HCl 180 mg 09/16/20 09:00 09/16/20 10:44 Diltiazem Hcl Cd 180 Mg Capsule PO 180 mg DAILY GIA Administration Famotidine 20 mg 09/15/20 21:00 09/15/20 20:52 Famotidine 20 Mg Tab PO 20 mg QPM GIA Administration Gabapentin 100 mg 09/15/20 21:00 09/16/20 14:32 Gabapentin 100 Mg Cap PO 100 mg TID GIA Administration Insulin Human Lispro 0 units 09/15/20 19:43 09/16/20 11:03 Humalog 300 Units/3 Ml Vial SC 10 unit .MODERATE SLIDING SC PRN Administration Moderate Correctional Scale Insulin Human Lispro 0 units 09/15/20 19:43 09/16/20 01:22 Humalog 300 Units/3 Ml Vial SC 5 unit .BEDTIME SLIDING SC PRN Administration Bedtime Correctional Scale Sodium Chloride 10 ml 09/15/20 21:00 09/16/20 10:45 Flush - Normal Saline 10 Ml Syringe IVF 10 ml Q12HR GIA Administration Hospitalist Exam Vitals: Vital Signs (12 hours) Temp Pulse Pulse Resp BP BP Pulse Ox 09/16/20 15:43 98.1 F 62 14 153/83 H 99 09/16/20 11:10 97.2 F L 65 16 164/103 H 100 09/16/20 10:45 163/99 H 09/16/20 10:43 68 09/16/20 09:20 65 170/89 H 09/16/20 07:41 98.0 F 65 16 170/89 H 99 Pulse Ox 09/16/20 15:43 09/16/20 11:10 09/16/20 10:45 09/16/20 10:43 09/16/20 09:20 99 09/16/20 07:41 Weight Admit Weight 207 lb Weight 207 lb General Appearance: awake alert Eye: PERRL, anicteric sclera ENT: no oropharyngeal lesions, moist mucosa Neck: supple, no JVD Heart: RRR, no murmur Respiratory: no wheezes, no rales, no ronchi Gastrointestinal: soft, non-tender, non-distended, normal bowel sounds Extremities: no cyanosis, no edema Neurological: cranial nerve grossly intact, no focal deficits Psychiatric: normal affect, A&O x 3 Hosp A/P (1) Hypertriglyceridemia Code(s): E78.1 - PURE HYPERGLYCERIDEMIA Status: Acute (2) DM type 2 (diabetes mellitus, type 2) Status: Acute Qualifiers: Diabetes mellitus intermediate school 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 insulin use: without intermediate school teacher use Diabetes mellitus complication status: with hyperglycemia Qualified Code(s): E11.65 - Type 2 diabetes mellitus with hyperglycemia (3) TIA (transient ischemic attack) Code(s): G45.9 - TRANSIENT CEREBRAL ISCHEMIC ATTACK, UNSPECIFIED Status: Resolved (4) Acute on chronic kidney failure Code(s): N17.9 - ACUTE KIDNEY FAILURE, UNSPECIFIED; N18.9 - CHRONIC KIDNEY DISEASE, UNSPECIFIED Status: Resolved (5) HTN (hypertension) Code(s): I10 - ESSENTIAL (PRIMARY) HYPERTENSION Status: Chronic Qualifiers: Hypertension type: essential hypertension Qualified Code(s): I10 - Essential (primary) hypertension (6) Gout Code(s): M10.9 - GOUT, UNSPECIFIED Status: Chronic Qualifiers: Gout site: unspecified site Gout etiology: unspecified cause (7) Tobacco abuse Code(s): Z72.0 - TOBACCO USE Status: Chronic (8) BPH (benign prostatic hyperplasia) Code(s): N40.0 - BENIGN PROSTATIC HYPERPLASIA WITHOUT LOWER URINRY TRACT SYMP Status: Chronic Qualifiers: Lower urinary tract symptom presence: symptoms absent Qualified Code(s): N40.0 - Benign prostatic hyperplasia without lower urinary tract symptoms (9) Moderate dehydration Code(s): E86.0 - DEHYDRATION Status: Resolved - Plan add tricor and fish oil to lipitor along with asp and eliquis continue coreg, dig, cardizem cd, neurontin MRI shows no ac cva renal function is slowly trending down to baseline add metformin and glipizide with one dose of lantus for now change status to inpt, has very high levels of triglycerides and uncontrolled dm with moderate dehyration Hb A1c is 14, creatinine is 1.3 he will f/u with new pcp on dc, needs dietary consultation and diabetic education echo shows ef of 55% hemostable right sided weakness and slurred speech have resolved, likely TIA, also had high triglycerides, moderate dehydration. dc plan in am if stable
[2020-09-16] MEDS: glipiZIDE 5 MG TAB PO SCH (17:09)
[2020-09-16] MEDS: metFORMIN 500 MG TAB PO SCH (17:09)
[2020-09-16 17:55] LABS: SARS-CoV-2 PCR by NAA Not Detected (NotDetected)
--- NOTE | 2020-09-16 17:58 | PDOC.EEG ---
Neurology EEG Report - Report Report: This EEG was performed using 24 channel RIGID video EEG machine with 24 disc electrodes. This was an extended 2 hours 4 minutes of inpatient video EEG recording. Digital analysis of the EEG was done for spike and seizure detection which revealed no abnormalities. Background: The posterior background rhythm is 8.5 -9 Hz. The backround rhythm attenuates with eye opening and enhances with eye closure. Hyperventilation: Not performed. Photic Stimulation: No significant response. Sleep: Drowsiness and sleep are observed. EEG Diagnosis: Normal awake, drowsy and sleep EEG.
[2020-09-16] MEDS ORDERED: Atorvastatin Calcium 40 MG TAB PO SCH (21:00)
[2020-09-16] MEDS: Famotidine 20 MG TAB PO SCH (21:34)
[2020-09-17] MEDS: HumaLOG 300 UNITS/3 ML VIAL SC PRN ×3 (00:47→11:50)
[2020-09-17] MEDS ORDERED: Insulin Glargine 15 UNITS in Pre-Filled Syringe 1 EACH SC SCH (07:30)
[2020-09-17] MEDS: glipiZIDE 5 MG TAB PO SCH ×2 (08:07→15:30)
[2020-09-17] MEDS ORDERED: Fenofibrate Nanocrystallized 145 MG TAB PO SCH (09:00)
[2020-09-17] MEDS ORDERED: Fish Oil 1,000 MG CAP PO SCH (09:00)
[2020-09-17] MEDS: Digoxin 0.125 MG TAB PO SCH (09:24)
[2020-09-17] MEDS: Allopurinol 300 MG TAB PO SCH (09:24)
[2020-09-17] MEDS: Apixaban 5 MG TAB PO SCH (09:24)
[2020-09-17] MEDS: Aspirin 81 mg Enteric Coated Tablet PO SCH (09:24)
[2020-09-17] MEDS: Carvedilol 25 MG TAB PO SCH (09:24)
[2020-09-17] MEDS: metFORMIN 500 MG TAB PO SCH ×2 (09:25→11:48)
[2020-09-17] MEDS: Amiodarone 200 MG TAB PO SCH (09:26)
[2020-09-17] MEDS: Gabapentin 100 MG CAP PO SCH ×2 (09:27→15:28)
[2020-09-17 12:10] VITALS: BP 149/88; TEMP 97.9
--- NOTE | 2020-09-17 15:24 | PDOC.NEUPN ---
- Subjective Encounter Date: 09/17/20 Subjective: Patient feels much better today with marked improvement. - Objective Vital Signs & Weight: Vital Signs (12 hours) Temp Pulse Pulse Pulse Resp BP BP 09/17/20 12:00 97.9 F 67 20 09/17/20 09:50 66 77 142/91 H 154/92 H 09/17/20 09:24 66 09/17/20 08:00 09/17/20 07:47 98.3 F 66 20 09/17/20 04:00 97.6 F 62 20 BP Pulse Ox 09/17/20 12:00 149/88 H 97 09/17/20 09:50 09/17/20 09:24 09/17/20 08:00 98 09/17/20 07:47 168/95 H 98 09/17/20 04:00 144/88 H 97 Weight Admit Weight 207 lb Weight 207 lb I&O: 09/16/20 09/17/20 09/18/20 06:59 06:59 06:59 Intake Total 1186 2620 Output Total 975 Balance 211 2620 Result Diagrams: 09/16/20 04:33 09/16/20 04:33 Additional Labs: Accuchecks 09/17/20 09/17/20 09/16/20 06:01 00:39 20:03 POC Glucose 263 H 331 H 270 H 09/16/20 09/16/20 17:07 16:29 POC Glucose 417 H 427 H Radiology Reviewed by me: Yes EKG Reviewed by me: Yes ROS - Review of Systems Constitutional: denies: fever, chills, sweats, weakness, malaise, other Eyes: denies: pain, vision change, conjunctivae inflammation, eyelid inflammation, redness, other ENT: denies: ear pain, ear discharge, nose pain, nose discharge, nose congestion, mouth pain, mouth swelling, throat pain, throat swelling, other Gastrointestinal: denies: nausea, vomiting, abdominal pain, diarrhea, constipation, melena, hematochezia, other Genitourinary: denies: dysuria, frequency, incontinence, hematuria, retention, other Musculoskeletal: denies: neck pain, shoulder pain, arm pain, back pain, hand pain, leg pain, foot pain, other Skin: denies: rash, lesions, patricia, bruising, other Neurological: denies: weakness, numbness, incoordination, change in speech, confusion, seizures, other - Medication Medications: Active Medications Generic Name Dose Route Start Last Admin Trade Name Tayler PRN Reason Stop Dose Admin Allopurinol 300 mg 09/16/20 09:00 09/17/20 09:24 Allopurinol 300 Mg Tab PO 300 mg DAILY GIA Administration Amiodarone HCl 200 mg 09/16/20 09:00 09/17/20 09:26 Amiodarone 200 Mg Tab PO 200 mg DAILY GIA Administration Apixaban 5 mg 09/15/20 21:00 09/17/20 09:24 Apixaban 5 Mg Tab PO 5 mg BID [facility] Administration Aspirin 81 mg 09/16/20 09:00 09/17/20 09:24 Aspirin 81 Mg Enteric Coated Tablet PO 81 mg DAILY GIA Administration Atorvastatin Calcium 40 mg 09/16/20 21:00 09/16/20 21:29 Atorvastatin Calcium 40 Mg Tab PO 40 mg HS [facility] Administration Carvedilol 25 mg 09/15/20 21:00 09/17/20 09:24 Carvedilol 25 Mg Tab PO 25 mg BID [facility] Administration Digoxin 0.125 mg 09/16/20 09:00 09/17/20 09:24 Digoxin 0.125 Mg Tab PO 0.125 mg DAILY GIA Administration Diltiazem HCl 180 mg 09/16/20 09:00 09/17/20 09:25 Diltiazem Hcl Cd 180 Mg Capsule PO 180 mg DAILY [facility] Administration Famotidine 20 mg 09/15/20 21:00 09/16/20 21:34 Famotidine 20 Mg Tab PO 20 mg QPM GIA Administration Fenofibrate 145 mg 09/17/20 09:00 09/17/20 09:24 Fenofibrate Nanocrystallized 145 Mg Tab PO 145 mg DAILY GIA Administration Fish Oil 1,000 mg 09/17/20 09:00 09/17/20 09:24 Fish Oil 1,000 Mg Cap PO 1,000 mg DAILY GIA Administration Gabapentin 100 mg 09/15/20 21:00 09/17/20 09:27 Gabapentin 100 Mg Cap PO 100 mg TID GIA Administration Glipizide 5 mg 09/16/20 16:30 09/17/20 08:07 Glipizide 5 Mg Tab PO 5 mg BID-AC [facility] Administration Insulin Human Lispro 0 units 09/15/20 19:43 09/17/20 11:50 Humalog 300 Units/3 Ml Vial SC 8 unit .MODERATE SLIDING SC PRN Administration Moderate Correctional Scale Insulin Human Lispro 0 units 09/15/20 19:43 09/17/20 00:47 Humalog 300 Units/3 Ml Vial SC 4 unit .BEDTIME SLIDING SC PRN Administration Bedtime Correctional Scale Metformin HCl 500 mg 09/16/20 17:00 09/17/20 11:48 Metformin 500 Mg Tab PO 500 mg TID-WM GIA Administration Sodium Chloride 10 ml 09/15/20 21:00 09/17/20 08:08 Flush - Normal Saline 10 Ml Syringe IVF 10 ml Q12HR GIA Administration - Exam General Appearance: awake alert Eye: PERRL ENT: normocephalic atraumatic Neck: supple Respiratory: CTAB Cardiovascular: RRR Gastrointestinal: soft Extremities: no cyanosis Skin: normal turgor Neurological: no new deficit Musculoskeletal: normal tone, no muscle wasting PSYCH: normal affect, normal behavior, A&O x 3, oriented to person, oriented to place, oriented to time Results - Labs Result Diagrams: 09/16/20 04:33 09/16/20 04:33 Lab results: WBC 6.2 thou/uL (4.8-10.8) 09/16/20 04:33 Hgb 13.9 g/dL (14.0-18.0) L 09/16/20 04:33 Hct 41.5 % (42.0-52.0) L 09/16/20 04:33 MCV 86.1 fL (78.0-98.0) 09/16/20 04:33 Plt Count 145 thou/uL (130-400) 09/16/20 04:33 Neutrophils % 55.2 % (42.0-75.0) 09/16/20 04:33 VBG pCO2 49.7 mmHg (40.0-50.0) 09/15/20 11:56 VBG pO2 25.8 mmHg (35.0-45.0) L 09/15/20 11:56 Sodium 138 mmol/L (136-145) 09/16/20 04:33 Potassium 3.9 mmol/L (3.5-5.1) 09/16/20 04:33 Chloride 104 mmol/L (98-107) 09/16/20 04:33 Carbon Dioxide 24 mmol/L (22-29) 09/16/20 04:33 BUN 23 mg/dL (8.4-25.7) 09/16/20 04:33 Creatinine 1.53 mg/dL (0.7-1.3) H 09/16/20 04:33 Glucose 297 mg/dL (70-105) H 09/16/20 04:33 Calcium 8.6 mg/dL (7.8-10.44) 09/16/20 04:33 Total Bilirubin 0.5 mg/dL (0.2-1.2) 09/16/20 04:33 AST 22 U/L (5-34) 09/16/20 04:33 ALT 28 U/L (8-55) 09/16/20 04:33 Alkaline Phosphatase 91 U/L (40-110) 09/16/20 04:33 Creatine Kinase 66 U/L (30-200) 09/15/20 10:00 Troponin I 0.021 ng/mL (< 0.028) 09/15/20 22:58 Serum Total Protein 6.0 g/dL (6.0-8.3) 09/16/20 04:33 Albumin 3.2 g/dL (3.5-5.0) L 09/16/20 04:33 Urine Ketones Trace mg/dL (Negative) A 09/15/20 10:28 Urine Blood Negative (Negative) 09/15/20 10:28 Urine Nitrite Negative (Negative) 09/15/20 10:28 Ur Leukocyte Esterase Negative Jazmine/uL (Negative) 09/15/20 10:28 Urine RBC 0-3 HPF (0-3) 09/15/20 10:28 Urine WBC 0-3 HPF (0-3) 09/15/20 10:28 Ur Squamous Epith Cells None Seen HPF (0-3) 09/15/20 10:28 Urine Bacteria None Seen HPF (None Seen) 09/15/20 10:28 - Radiology Interpretation MRI - head Additional Comment: Negative PN A/P (1) TIA (transient ischemic attack) Code(s): G45.9 - TRANSIENT CEREBRAL ISCHEMIC ATTACK, UNSPECIFIED Status: Resolved (2) Acute on chronic kidney failure Code(s): N17.9 - ACUTE KIDNEY FAILURE, UNSPECIFIED; N18.9 - CHRONIC KIDNEY DISEASE, UNSPECIFIED Status: Resolved (3) Atrial fibrillation with RVR Code(s): I48.91 - UNSPECIFIED ATRIAL FIBRILLATION Status: Acute (4) CKD (chronic kidney disease), stage II Code(s): N18.2 - CHRONIC KIDNEY DISEASE, STAGE 2 (MILD) Status: Acute (5) HTN (hypertension) Code(s): I10 - ESSENTIAL (PRIMARY) HYPERTENSION Status: Chronic Qualifiers: Hypertension type: essential hypertension Qualified Code(s): I10 - Essential (primary) hypertension (6) Tobacco abuse counseling Code(s): Z71.6 - TOBACCO ABUSE COUNSELING Status: Acute (7) Gout Code(s): M10.9 - GOUT, UNSPECIFIED Status: Chronic Qualifiers: Gout site: unspecified site Gout etiology: unspecified cause (8) HTN (hypertension) Code(s): I10 - ESSENTIAL (PRIMARY) HYPERTENSION Status: Deleted Qualifiers: Hypertension type: essential hypertension Qualified Code(s): I10 - Essential (primary) hypertension - Plan Daily Plan: PT/OT, speech therapy, out of bed/ambulate Mr. Sweeney is a 55-year-old male with a history of a significant for hyperte nsion, atrial fibrillation with RVR, renal insufficiency presented with strokelike symptoms which are now resolved and he is back to his baseline.Most likely TIA MRI of the brain reviewed which was negative for acute intracranial pathology. Carotid Dopplers did not reveal hemodynamically significant stenosis. 2D echo to evaluate for left ventricular ejection fraction is 55-60%. No thrombus or PFO. Continue telemetry to rule out arrhythmias. Patient does have history of atrial fibrillation and is on Eliquis. Continue Eliquis and start high intensity statin for secondary stroke prevention. Neurochecks every 4 hours. Continue home medications. Strict control of blood pressure and blood glucose. Continue medical management per primary team. PT/OT/speech Plan discussed in detail with the patient and also with the nursing staff.
--- NOTE | 2020-09-17 18:26 | DIS ---
DATE OF ADMISSION: 09/16/2020 DATE OF DISCHARGE: 09/17/2020 DISCHARGE DISPOSITION: To home. PRIMARY DISCHARGE DIAGNOSES: Transient ischemic attack, resolved with right-sided weakness and slurred speech completely resolving; new onset diabetes mellitus type 2, which was uncontrolled; moderate dehydration due to uncontrolled diabetes, resolved. SECONDARY DISCHARGE DIAGNOSES: History of chronic atrial fibrillation, dyslipidemia, hypertension, and benign prostatic hypertrophy. PROCEDURES DONE DURING HOSPITALIZATION: CT brain without contrast done on the day of admission showed nonspecific hypodensity involving right wong radiata, indeterminate white matter infarct. Chest x-ray done showed no acute cardiopulmonary abnormality. MRI brain without contrast done on 09/16/2020 showed no evidence of acute intracranial process. Carotid Doppler showed no hemodynamically significant stenosis. Echo with 2D Doppler showed ejection fraction of 55% to 60%, moderate mitral regurgitation. EEG done on 09/16/2020 showed normal awake, drowsy, and sleep EEG. H and H 13 and 41, platelet count 145. HbA1c greater than 14. Triglycerides 1364, total cholesterol 312, albumin 3.2, TSH 2.12, and initial serum glucose of 715. COVID-19 PCR was not detected on 09/16/2020. DISCHARGE PLAN: The patient to follow up with Dr. Quach, his new primary care physician, in 1 week. He is advised to check fingerstick glucose twice daily along with blood pressure and pulse and record for 10 days to follow up with primary care physician for changes in his medication. DISCHARGE MEDICATIONS: 1. Metformin 500 mg p.o. 3 times daily. 2. Glipizide 5 mg twice daily. 3. Atorvastatin 40 mg p.o. q.h.s. 4. Tricor 145 mg p.o. daily. 5. Lisinopril 5 mg p.o. daily. 6. Fish oil 1000 mg p.o. daily. 7. Coreg 25 mg twice daily. 8. Digoxin 0.125 mg p.o. daily. 9. Gabapentin 100 mg p.o. 3 times daily. 10. Eliquis 5 mg p.o. twice daily. 11. Cardizem CD 180 mg p.o. daily. 12. Amiodarone 200 mg p.o. daily. 13. Allopurinol 300 mg p.o. daily. ALLERGIES: NO KNOWN DRUG ALLERGIES. BRIEF COURSE DURING HOSPITALIZATION: The patient initially got admitted on the with complaints of right-sided weakness and slurred speech for nearly three days. He was also having polyuria. The patient had a serum glucose of more than 700 mg/dL on admission with new onset diabetes and moderate dehydration. He was initially admitted to stroke unit and had complete stroke protocol followed. His imaging studies for brain including CT brain and MRI brain have not revealed any acute infarct. His diabetes was closely monitored, and multiple medications were used initially including insulin and has been transitioned to oral diabetic agents. His diabetes is currently labile. He is advised to check fingerstick glucose twice daily and follow strict 1800-kilocalorie ADA diet. He was given diabetic education and dietary instructions as well by nursing. He is evaluated by Dr. Hall for Neurology as well. Mr. Pieter Sweeney is ambulating and eating well prior to discharge. He had moderate dehydration due to new onset uncontrolled diabetes, which is resolved with fluid resuscitation. He is hemodynamically stable and neurologically stable prior to discharge. Please note, I have seen and examined the patient on the day of discharge. Job ID: [id number]
== END 2020-09-17 15:57 | disposition home or self-care (01) | DRG 638 ==
LOC: ERS 09:29 → 2SE 12:54 → OBSVTOIN 09-16 14:05
PROVIDERS: ADMIT Internal Medicine; ATTEND Internal Medicine
DX: E11.65 Type 2 diabetes mellitus with hyperglycemia (principal); G45.9 Transient cerebral ischemic attack, unspecified; I48.20 Chronic atrial fibrillation, unspecified; I13.0 Hypertensive heart and chronic kidney disease with heart failure and stage 1 through stage 4 chronic kidney disease, or unspecified chronic kidney disease; N17.9 Acute kidney failure, unspecified; E86.0 Dehydration; E78.5 Hyperlipidemia, unspecified; N40.0 Benign prostatic hyperplasia without lower urinary tract symptoms; Z20.822 Contact with and (suspected) exposure to COVID-19; I50.9 Heart failure, unspecified; E11.40 Type 2 diabetes mellitus with diabetic neuropathy, unspecified; N18.2 Chronic kidney disease, stage 2 (mild); E11.22 Type 2 diabetes mellitus with diabetic chronic kidney disease; E78.1 Pure hyperglyceridemia; K21.9 Gastro-esophageal reflux disease without esophagitis; M10.9 Gout, unspecified; Z79.01 Long term (current) use of anticoagulants; Z79.899 Other long term (current) drug therapy
CPT/HCPCS: 36415; 36416; 70450; 70551; 71045; 80053; 80061; 81003; 81015; 82010; 82330; 82550; 82803; 83036; 84443; 84484; 85025; 85610; 85730; 87635; 93005; 93306; 93880; 95712; 95816; 95819; 95957; G0378; J1815; U0003; U0005

== ENCOUNTER 2023-06-18 10:13 | Inpatient (IN) | payer MEDICARE ==
[2023-06-18 10:59] LABS: #Basophils 0.1 thou/uL (0.0-0.2); #Eosinphils 0.8 thou/uL (0.0-0.7); #Monocytes 0.5 thou/uL (0.11-0.59); #Neutrophils 5.8 thou/uL (1.40-6.50); %Basophils 0.6 % (0.0-1.0); %Eosinophils 8.9 % (0.0-10.0); %Lymphocytes 17.4 % (21.0-51.0); %Monocytes 5.7 % (0.0-10.0); %Neutrophils 67.2 % (42.0-75.0); Hematocrit 44.1 % (42.0-52.0); Mean Corpuscular HGB CONC 31.7 g/dL (32.0-36.0); Mean Corpuscular Hemoglobin 27.3 pg (27.0-31.0); Mean Platelet Volume 10.4 fL (7.4-10.4); Platelet Count 224 10x3/uL (130-400); RBC Distribution Width 14.6 % (11.5-14.5); Red Blood Cell (RBC) Count 5.13 mill/uL (4.70-6.10); White Blood Cell (WBC) Count 8.6 10x3/uL (4.8-10.8)
[2023-06-18 11:33] LABS: Anion Gap 16 mmol/L (10-20); BUN (Urea Nitrogen) 33 mg/dL (8.4-25.7); Calc. Creatinine Clearance 48 mL/min (70-130); Calcium 9.1 mg/dL (7.8-10.44); Carbon Dioxide 20 mmol/L (22-29); Chloride 110 mmol/L (98-107); Estimated GFR 31; Glucose 157 mg/dL (70-105); Potassium 4.5 mmol/L (3.5-5.1); Sodium 141 mmol/L (136-145)
[2023-06-18] MEDS ORDERED: PROPOFOL 40 ML ONE (12:18)
[2023-06-18] MEDS ORDERED: KETAMINE 100 MG/ML (5ML VIAL) ONE (12:19)
[2023-06-18] MEDS ORDERED: PROPOFOL 200 MG/20 ML VIAL ONE (13:02)
[2023-06-18] MEDS ORDERED: Acetaminophen 325 MG TAB PO PRN (14:13)
[2023-06-18] MEDS ORDERED: Dextrose 50% Abboject 50 ML SYRINGE SLOW IVP PRN (14:13)
[2023-06-18] MEDS ORDERED: Dextrose 5% in Water 1,000 ML IV PRN (14:13)
[2023-06-18] MEDS ORDERED: HumaLOG 300 UNITS/3 ML VIAL SC PRN (14:13)
[2023-06-18] MEDS ORDERED: Glucagon 1 MG/ML KIT IM PRN (14:13)
[2023-06-18] MEDS ORDERED: hydrALAZINE 20 MG/ML VIAL SLOW IVP PRN (14:20)
[2023-06-18] MEDS ORDERED: Metoclopramide HCl 10 MG/2 ML VIAL IVP PRN (14:24)
[2023-06-18] MEDS ORDERED: Labetalol HCl 100 MG/20 ML VIAL ONE (14:26)
[2023-06-18] MEDS ORDERED: hydrALAZINE 20 MG/ML VIAL ONE (14:28)
[2023-06-18] MEDS ORDERED: Lactated Ringer's 1,000 ML IV SCH (14:30)
[2023-06-18] MEDS ORDERED: Diazepam 5 MG TAB PO SCH (14:45)
[2023-06-18] MEDS ORDERED: Communication Order-Pharmacy FS SCH (14:45)
[2023-06-18] MEDS ORDERED: hydrALAZINE 20 MG/ML VIAL SLOW IVP SCH (16:30)
[2023-06-18] MEDS ORDERED: Labetalol HCl 100 MG/20 ML VIAL SLOW IVP SCH (16:30)
[2023-06-18] MEDS: Sodium Chloride 0.9% 1,000 ML IV SCH (16:54)
[2023-06-18] MEDS: Gabapentin 100 MG CAP PO SCH ×2 (16:54→20:18)
[2023-06-18] MEDS: Carvedilol 25 MG TAB PO SCH (16:55)
[2023-06-18] MEDS: hydrALAZINE 10 MG TAB PO SCH ×2 (16:55→20:18)
[2023-06-18 17:35] VITALS: BMI 36.1
[2023-06-18] MEDS: HumaLOG 300 UNITS/3 ML VIAL SC PRN (18:02)
[2023-06-18] MEDS: Atorvastatin Calcium 40 MG TAB PO SCH (20:18)
[2023-06-18] MEDS ORDERED: Flecainide Acetate 100 MG TAB PO SCH (21:00)
[2023-06-19] MEDS: Sodium Chloride 0.9% 1,000 ML IV SCH ×2 (02:54→11:40)
[2023-06-19 04:14] LABS: #Basophils 0.1 thou/uL (0.0-0.2); #Eosinphils 0.8 thou/uL (0.0-0.7); #Monocytes 0.6 thou/uL (0.11-0.59); #Neutrophils 5.6 thou/uL (1.40-6.50); %Basophils 0.5 % (0.0-1.0); %Eosinophils 8.1 % (0.0-10.0); %Lymphocytes 25.3 % (21.0-51.0); %Monocytes 6.6 % (0.0-10.0); %Neutrophils 59.2 % (42.0-75.0); Hematocrit 41.2 % (42.0-52.0); Hemoglobin 13.2 g/dL (14.0-18.0); Mean Corpuscular Hemoglobin 27.6 pg (27.0-31.0); Mean Corpuscular Volume 86.2 fl (78.0-98.0); Mean Platelet Volume 10.6 fL (7.4-10.4); Platelet Count 205 10x3/uL (130-400); RBC Distribution Width 14.7 % (11.5-14.5); Red Blood Cell (RBC) Count 4.78 mill/uL (4.70-6.10); White Blood Cell (WBC) Count 9.4 10x3/uL (4.8-10.8)
[2023-06-19 04:33] LABS: Potassium 4.2 mmol/L (3.5-5.1); Sodium 142 mmol/L (136-145)
[2023-06-19 04:34] LABS: Anion Gap 13 mmol/L (10-20); BUN (Urea Nitrogen) 33 mg/dL (8.4-25.7); Calc. Creatinine Clearance 50 mL/min (70-130); Calcium 8.8 mg/dL (7.8-10.44); Carbon Dioxide 21 mmol/L (22-29); Chloride 112 mmol/L (98-107); Estimated GFR 32; Glucose 132 mg/dL (70-105)
[2023-06-19] MEDS ORDERED: fentaNYL 50 mcg/mL 1 mL Vial ONE (08:31)
[2023-06-19] MEDS ORDERED: Verapamil 5 MG/2 ML VIAL ONE (08:31)
[2023-06-19] MEDS ORDERED: Midazolam HCl 2 mg/2 ml Vial ONE (08:31)
[2023-06-19] MEDS ORDERED: Adenosine 6 MG/2 ML VIAL ONE (08:31)
[2023-06-19] MEDS ORDERED: Lidocaine 1% (PF) 30 ML VIAL ONE (08:32)
[2023-06-19] MEDS ORDERED: Heparin 10,000 UNITS/ 10 ML VIAL ONE (08:32)
[2023-06-19] MEDS ORDERED: Nitroglycerin 50 MG/250 ML BOT 250 ML ONE (08:32)
[2023-06-19] MEDS ORDERED: dilTIAZem CD 240 MG CAP PO SCH (09:00)
[2023-06-19] MEDS ORDERED: Fenofibrate Nanocrystallized 145 MG TAB PO SCH (09:00)
[2023-06-19] MEDS: hydrALAZINE 10 MG TAB PO SCH ×5 (10:01→20:24)
[2023-06-19] MEDS: Carvedilol 25 MG TAB PO SCH ×2 (10:01→16:04)
[2023-06-19] MEDS: Gabapentin 100 MG CAP PO SCH ×3 (10:01→20:25)
[2023-06-19] MEDS ORDERED: hydrALAZINE 20 MG/ML VIAL ONE (11:33)
[2023-06-19] MEDS ORDERED: Sodium Chloride 0.9% 200 ML IV PRN (13:09)
[2023-06-19] MEDS ORDERED: Nitroglycerin 0.4 MG TAB (25 Tab Bottle) SL PRN (13:09)
[2023-06-19] MEDS ORDERED: Acetaminophen/Codeine 30-300mg Tablet PO PRN ×2 (13:09)
[2023-06-19] MEDS ORDERED: Sodium Chloride 0.9% 1,000 ML IV SCH (13:15)
[2023-06-19] MEDS ORDERED: Allopurinol 100 MG TAB PO SCH (13:15)
[2023-06-19 14:28] LABS: SARS-CoV-2 NAA Rapid Test Not Detected (NotDetected)
[2023-06-19] MEDS: HumaLOG 300 UNITS/3 ML VIAL SC PRN (17:40)
[2023-06-19 20:16] VITALS: BP 134/89; TEMP 98.2
[2023-06-19] MEDS: Atorvastatin Calcium 40 MG TAB PO SCH (20:25)
[2023-06-20] MEDS ORDERED: Allopurinol 100 MG TAB PO SCH (09:00)
== END 2023-06-19 22:19 | disposition short-term general hospital (02) | DRG 287 ==
LOC: SDC 10:13 → 2NO 16:03
PROVIDERS: ADMIT Family Medicine; ATTEND Family Medicine
PROC: B24BZZ4 Ultrasonography of Heart with Aorta, Transesophageal (ICD-10-PCS; 2023-06-18)
PROC: 4A023N7 Measurement of Cardiac Sampling and Pressure, Left Heart, Percutaneous Approach (ICD-10-PCS; principal; 2023-06-19)
PROC: B2111ZZ Fluoroscopy of Multiple Coronary Arteries using Low Osmolar Contrast (ICD-10-PCS; 2023-06-19)
PROC: B2151ZZ Fluoroscopy of Left Heart using Low Osmolar Contrast (ICD-10-PCS; 2023-06-19)
DX: I48.19 Other persistent atrial fibrillation (principal); N17.9 Acute kidney failure, unspecified; M10.9 Gout, unspecified; N40.0 Benign prostatic hyperplasia without lower urinary tract symptoms; E78.5 Hyperlipidemia, unspecified; E11.40 Type 2 diabetes mellitus with diabetic neuropathy, unspecified; Z98.890 Other specified postprocedural states; Z82.49 Family history of ischemic heart disease and other diseases of the circulatory system; Z82.3 Family history of stroke; N18.30 Chronic kidney disease, stage 3 unspecified; E11.22 Type 2 diabetes mellitus with diabetic chronic kidney disease; I12.9 Hypertensive chronic kidney disease with stage 1 through stage 4 chronic kidney disease, or unspecified chronic kidney disease; Z79.899 Other long term (current) drug therapy; Z79.01 Long term (current) use of anticoagulants; Z79.84 Long term (current) use of oral hypoglycemic drugs; I34.0 Nonrheumatic mitral (valve) insufficiency; I42.9 Cardiomyopathy, unspecified; Z20.822 Contact with and (suspected) exposure to COVID-19
CPT/HCPCS: 36415; 36416; 71250; 80048; 85025; 92960; 93005; 93010; 93312; 93454; 99152; C1769; C1894; J0153; J0360; J1644; J1650; J1815; J2001; J2250; J2704; J3010; J7050; U0002